=== PATIENT | female | born 1950 | race Caucasian/White ===

== ENCOUNTER 2019-01-11 22:26 | Emergency (ER) | payer MEDICARE, OTHER ==
--- NOTE | 2019-01-11 22:50 | ERPHSYRPT ---
- History of Present Illness Time Seen by Provider: 01/11/19 22:42 Source: patient, family Exam Limitations: no limitations Physician History: ppatient was walking the dog and dog when I pull in her left arm and patient have fell. Patient complains of pain in the left shoulder and left scapular pain yet. No head injury. No LOC. No nausea vomiting. Occurred: just prior to arrival Method of Injury: fell Quality: constant Severity of Pain-Max: moderate Severity of Pain-Current: moderate Extremities Pain Location: shoulder: left Modifying Factors: Improves With: movement Associated Symptoms: back pain, No chills, No chest discomfort, No chest pain, No dyspnea, No fever, No jaw pain, No nausea, No neck pain, No sweating, No short of breath, No vomiting Allergies/Adverse Reactions: Penicillins Allergy (Verified 01/11/19 22:56) Sulfa (Sulfonamide Antibiotics) Allergy (Verified 01/11/19 22:56) Home Medications: Atorvastatin Calcium 40 mg PO 01/11/19 [History] Escitalopram Oxalate 10 mg PO DAILY PRN 01/11/19 [History] Metformin HCl 1,000 mg PO BID 01/11/19 [History] - Review of Systems Constitutional: No Fever, No Chills Eyes: No Symptoms Ears, Nose, & Throat: No Symptoms Respiratory: No Cough, No Dyspnea Cardiac: No Chest Pain, No Edema, No Syncope Abdominal/Gastrointestinal: No Abdominal Pain, No Nausea, No Vomiting, No Diarrhea Genitourinary Symptoms: No Dysuria Musculoskeletal: Other (lleft shoulder and left hip area pain, painful range of motion,), No Back Pain, No Neck Pain Skin: No Rash Neurological: No Dizziness, No Focal Weakness, No Gait Changes, No Headache, No Sensory Changes Psychological: No Symptoms Endocrine: No Symptoms All Other Systems: Reviewed and Negative - Past Medical History Cardiac History: Hypertension Endocrine Medical History: Diabetes Type II - Past Surgical History Neuro Surgical History: No Pertinent History - Nursing Vital Signs Nursing Vital Signs: Initial Vital Signs Temperature 98.7 F 01/11/19 22:45 Pulse Rate 95 H 01/11/19 22:45 Respiratory Rate 16 01/11/19 22:45 Blood Pressure 155/74 01/11/19 22:45 O2 Sat by Pulse Oximetry 95 01/11/19 22:45 Pain Scale Pain Intensity 8 - Physical Exam General Appearance: alert Eyes, Ears, Nose, Throat Exam: moist mucous membranes Neck Exam: non-tender, supple Cardiovascular/Respiratory Exam: chest non-tender, normal breath sounds, regular rate/rhythm, no respiratory distress Abdominal Exam: non-tender, No guarding Back Exam: normal inspection, No vertebral tenderness Shoulder Exam: normal inspection, limited ROM (lleft shoulder and left hip area pain, painful range of motion,normal distal neurovascular function. No deformity.) Elbow/Forearm Exam: normal inspection, non-tender Wrist Exam: normal inspection, non-tender Hand Exam: normal inspection, non-tender Neuro/Tendon Exam: normal sensation, normal motor functions, normal tendon functions, no evidence tendon injury Mental Status Exam: alert, oriented x 3, cooperative Skin Exam: normal color, warm, dry - Course Nursing assessment & vital signs reviewed: Yes - Radiology Exams Left Shoulder X-ray Interpretation: Reviewed by me, Other (fracture upper and the left humerus ) Ordered Tests: Active Orders 24 hr Category Date Time Status Sling Application STAT Care 01/11/19 23:25 Ordered SHOULDER Stat Exams 01/11/19 23:21 Taken Medication Summary Discontinued Medications Generic Name Dose Route Start Last Admin Trade Name Freq PRN Reason Stop Dose Admin Ketorolac Tromethamine 30 mg 01/11/19 22:51 01/11/19 23:08 Toradol 30 Mg Injection IM 01/11/19 22:52 30 mg STAT ONE Administration Ketorolac Tromethamine Confirm 01/11/19 23:06 Toradol 30 Mg Injection Administered 01/11/19 23:07 Dose 30 mg .ROUTE .STK-MED ONE - Progress Progress: improved Counseled pt/family regarding: diagnosis, need for follow-up (advised patient to see ortho in the morning), rad results - Departure Departure Disposition: Home Clinical Impression: Fracture of humerus, left, closed Qualifiers: Encounter type: initial encounter Humerus Location: proximal Fracture morphology: other fracture Fracture alignment: nondisplaced Qualified Code(s): S42.295A - Other nondisplaced fracture of upper end of left humerus, initial encounter for closed fracture Condition: Stable Critical Care Time: No Referrals: JOANNE WAYNE [Primary Care Provider] - Prescriptions: Hydrocodone/APAP 5-325 Tab^^^ [[place] 5-325 Tablet^^^] 1 tab PO Q8H PRN PRN #2 tablet MDD 2 PRN Reason: Pain
[2019-01-11] MEDS ORDERED: TORAdol 30 mg Injection IM ONE (22:51)
[2019-01-11 22:54] VITALS: O2SAT 95
[2019-01-11] MEDS ORDERED: TORAdol 30 mg Injection ONE (23:06)
[2019-01-11] MEDS ORDERED: NORCO 5/325 MG ONE (23:34)
[2019-01-11] MEDS ORDERED: NORCO 5/325 MG PO ONE (23:36)
[2019-01-11 23:48] VITALS: BP 138/91; PULSE 94
--- NOTE | 2019-01-12 09:02 | XRAY ---
Indication: Pain following fall. Comparison: None 3 views of the left shoulder demonstrates comminuted humeral head/neck fracture with mild displaced lateral fracture fragment. No other bony, articular, or soft tissue abnormalities. Comment: No electronic note reporting fracture by the interpreting ER clinician. Telephone report given to Dr. Cosby in the ER at 0900 hrs. on January 12, 2019.
== END 2019-01-11 23:40 | disposition home or self-care (01) ==
LOC: ED 22:26
DX: S42.295A Other nondisplaced fracture of upper end of left humerus, initial encounter for closed fracture (principal); W01.0XXA Fall on same level from slipping, tripping and stumbling without subsequent striking against object, initial encounter; Y93.K1 Activity, walking an animal; Y92.9 Unspecified place or not applicable; I10 Essential (primary) hypertension; E11.9 Type 2 diabetes mellitus without complications
CPT/HCPCS: 73030; 96372; 99284; J1885; A9270-GY

== ENCOUNTER 2019-08-26 07:51 | Observation (INO) | payer MEDICARE, OTHER ==
[2019-08-26] MEDS ORDERED: Zithromax 500 MG/ 250 ML NaCl Premix 500 MG/250 ML IVPB IV STA (08:12)
[2019-08-26] MEDS ORDERED: Pepcid 20 MG VIAL IV ONE ×2 (08:12→08:19)
--- NOTE | 2019-08-26 08:12 | ERPHSYRPT ---
- History of Present Illness Time Seen by Provider: 08/26/19 08:08 Source: patient Exam Limitations: no limitations Physician History: pt awakened with shortness of breath today - has had cough and sore throat a few days but no known fever or exposures. pt reports allergy symptoms earlier in the week and now sinus drainage and also states pcn allergy was not serious and that she has since taken keflex without problems. Timing/Duration: day(s) Cough Quality/Degree: moderate, dry cough Possible Cause: no prior episodes Modifying Factors: Improves With: coughing Associated Symptoms: cough Allergies/Adverse Reactions: Penicillins Allergy (Verified 08/26/19 08:10) Sulfa (Sulfonamide Antibiotics) Allergy (Verified 08/26/19 08:10) Home Medications: Atorvastatin Calcium 40 mg PO DAILY 01/11/19 [History] Metformin HCl 1,000 mg PO BID 01/11/19 [History] - Review of Systems Constitutional: No Fever, No Chills Eyes: No Symptoms Ears, Nose, & Throat: Throat Pain Respiratory: Cough, Dyspnea Cardiac: No Chest Pain, No Edema, No Syncope Abdominal/Gastrointestinal: No Abdominal Pain, No Nausea, No Vomiting, No Diarrhea Genitourinary Symptoms: No Dysuria Musculoskeletal: No Back Pain, No Neck Pain Skin: No Rash Neurological: No Dizziness, No Focal Weakness, No Sensory Changes Psychological: No Symptoms Endocrine: No Symptoms All Other Systems: Reviewed and Negative - Past Medical History Pertinent Past Medical History: Yes Cardiac History: Hypertension Endocrine Medical History: Diabetes Type II Psycho-Social History: Depression - Past Surgical History Past Surgical History: Yes Neuro Surgical History: No Pertinent History Female Surgical History: Tubal Ligation Other Surgical History: r wrist - Social History Smoking Status: Never smoker Drug Use: none - Nursing Vital Signs Nursing Vital Signs: Initial Vital Signs Temperature 98.0 F 08/26/19 08:11 Pulse Rate 103 H 08/26/19 08:11 Respiratory Rate 18 08/26/19 08:11 Blood Pressure 168/96 08/26/19 08:11 O2 Sat by Pulse Oximetry 96 08/26/19 08:11 Pain Scale Pain Intensity 0 - Physical Exam General Appearance: no apparent distress, alert Eye Exam: PERRL/EOMI, eyes nml inspection Ears, Nose, Throat Exam: normal ENT inspection, TMs normal, pharynx normal, moist mucous membranes Neck Exam: normal inspection, non-tender, supple, full range of motion Respiratory Exam: normal breath sounds, lungs clear, No respiratory distress Cardiovascular Exam: regular rate/rhythm, normal heart sounds Gastrointestinal/Abdomen Exam: soft, No tenderness Pelvic Exam: deferred Rectal Exam: deferred Back Exam: normal inspection, No CVA tenderness, No vertebral tenderness Extremity Exam: normal inspection, normal range of motion Neurologic Exam: alert, oriented x 3, cooperative, normal mood/affect, sensation nml, No motor deficits Skin Exam: normal color, warm, dry, No rash Lymphatic Exam: No adenopathy - Course Nursing assessment & vital signs reviewed: Yes EKG Interpreted by Me: Sinus Tach, Left [place] Deviation, Non-specific ST Changes - Radiology Exams Chest X-ray Interpretation: Reviewed by me, No Pneumothorax, Infiltrates (bilateral increased reticular or infiltrate pattern) Ordered Tests: Active Orders 24 hr Category Date Time Status Primary Care Coordinator STAT Care 08/26/19 08:13 Active EKG-ER Only STAT Care 08/26/19 08:12 Active IV Insertion STAT Care 08/26/19 08:12 Active Isolation, Initiate & Maintain Q4H Care 08/26/19 08:15 Active Pulse Oximetry (ED) STAT Care 08/26/19 08:12 Active CHEST 1 VIEW (PORTABLE) Stat Exams 08/26/19 08:13 Taken CBC W DIFF Stat Lab 08/26/19 08:15 Completed CMP Stat Lab 08/26/19 08:15 Completed D-DIMER QUANTITATIVE Stat Lab 08/26/19 08:12 Completed Lactic Acid Stat Lab 08/26/19 08:40 Completed Lactic Acid Stat Lab 08/26/19 10:45 Received NT PRO BNP Stat Lab 08/26/19 08:15 Completed TROPONIN Q3H Lab 08/26/19 08:15 Completed TROPONIN Q3H Lab 08/26/19 11:15 Ordered TROPONIN Q3H Lab 08/26/19 14:15 Ordered TROPONIN Q3H Lab 08/26/19 17:15 Ordered TROPONIN Q3H Lab 08/26/19 20:15 Ordered Respiratory Therapy Assessment DAILY RT 08/26/19 09:43 Active Medication Summary Generic Name Dose Route Start Last Admin Trade Name Freq PRN Reason Stop Dose Admin Sodium Chloride 1,000 mls @ 100 mls/hr 08/26/19 08:15 08/26/19 08:22 Sodium Chloride 0.9% 1000 Ml IV 09/25/19 08:14 100 mls/hr .Q10H CAROLA Administration Discontinued Medications Generic Name Dose Route Start Last Admin Trade Name Jean Pierreq PRN Reason Stop Dose Admin Albuterol Sulfate 4 puff 08/26/19 08:39 08/26/19 09:18 Ventolin Common Canister IH 08/26/19 08:40 4 puff STAT ONE Administration Aspirin 325 mg 08/26/19 09:42 08/26/19 09:58 Ecotrin 325 Mg PO 08/26/19 09:43 325 mg STAT ONE Administration Famotidine 20 mg 08/26/19 08:12 08/26/19 08:21 Pepcid 20 Mg Vial IV 08/26/19 08:13 20 mg STAT ONE Administration Famotidine Confirm 08/26/19 08:19 Pepcid 20 Mg Vial Administered 08/26/19 08:20 Dose 20 mg IV .STK-MED ONE Azithromycin 500 mg in 250 mls @ 250 mls/hr 08/26/19 08:12 08/26/19 08:23 Zithromax 500 Mg/ 250 Ml Nacl Premix IV 08/26/19 09:11 Not Given STAT STA Azithromycin Confirm 08/26/19 08:19 Zithromax 500 Mg/ 250 Ml Nacl Premix Administered 08/26/19 08:20 Dose 500 mg in 250 mls @ ud IV .STK-MED ONE Ceftriaxone Sodium/Dextrose 1 g in 50 mls @ 100 mls/hr 08/26/19 08:26 08:29 Rocephin 1 Gm-D5w 50 Ml Bag IV 08/26/19 08:55 100 mls/hr STAT STA 100 mls/hr Administration Ceftriaxone Sodium/Dextrose Confirm 08/26/19 08:28 Rocephin 1 Gm-D5w 50 Ml Bag Administered 08/26/19 08:29 Dose 1 g in 50 mls @ ud IV .STK-MED ONE Methylprednisolone Sodium Succinate 125 mg 08/26/19 08:41 08/26/19 08:50 Solu-Medrol 125 Mg IV 08/26/19 08:42 125 mg STAT ONE Administration Methylprednisolone Sodium Succinate Confirm 08/26/19 08:50 Solu-Medrol 125 Mg Administered 08/26/19 08:51 Dose 125 mg .ROUTE .STK-MED ONE Nitroglycerin 0.4 mg 08/26/19 09:44 08/26/19 09:53 Nitrostat 0.4 Mg (Ed) SL 08/26/19 09:45 0.4 mg STAT ONE Administration Nitroglycerin Confirm 08/26/19 09:52 Nitrostat 0.4 Mg (Ed) Administered 08/26/19 09:53 Dose 0.4 mg SL .STK-MED ONE Lab/Rad Data: Laboratory Result Diagrams 08/26/19 08:15 08/26/19 08:15 Laboratory Results 08/26/19 08/26/19 08/26/19 Range/Units 08:40 08:15 08:15 WBC (4.0-10.5) K/mm3 RBC (4.1-5.4) M/mm3 Hgb (12.0-16.0) gm/dl Hct (35-47) % MCV (78-100) fl MCH (26-32) pg MCHC (32-36) g/dl RDW (11.5-14.0) % Plt Count (150-450) K/mm3 MPV (7.5-11.0) fl Gran % (36.0-66.0) % Eos # (Auto) (0-0.5) Absolute Lymphs (auto) (1.0-4.6) Absolute Monos (auto) (0.0-1.3) Lymphocytes % (24.0-44.0) % Monocytes % (0.0-12.0) % Eosinophils % (0.00-5.0) % Basophils % (0.0-0.4) % Absolute Granulocytes (1.4-6.9) Basophils # (0-0.4) D-Dimer (215-500) ng/mL Sodium (137-145) mmol/L Potassium (3.5-5.1) mmol/L Chloride (98-107) mmol/L Carbon Dioxide (22-30) mmol/L Anion Gap (5-15) MEQ/L BUN (7-17) mg/dL Creatinine (0.52-1.04) mg/dL Estimated GFR ML/MIN Glucose (74-106) mg/dL Lactic Acid 2.1 H (0.4-2.0) Calcium (8.4-10.2) mg/dL Total Bilirubin (0.2-1.3) mg/dL AST (14-36) U/L ALT (0-35) U/L Alkaline Phosphatase (38-126) U/L Troponin I (0.000-0.034) ng/mL NT-Pro-B Natriuret Pep (0-900) pg/mL Serum Total Protein (6.3-8.2) g/dL Albumin (3.5-5.0) g/dL Influenza Type A Ag NEGATIVE (NEGATIVE) Influenza Type B Ag NEGATIVE (NEGATIVE) RSV (PCR) NEGATIVE (Negative) Group A Strep Antibody NOT DETECTED (NEGATIVE) 08/26/19 08/26/19 08/26/19 Range/Units 08:15 08:15 08:15 WBC 7.1 (4.0-10.5) K/mm3 RBC 4.28 (4.1-5.4) M/mm3 Hgb 13.3 (12.0-16.0) gm/dl Hct 39.9 (35-47) % MCV 93.2 (78-100) fl MCH 31.1 (26-32) pg MCHC 33.3 (32-36) g/dl RDW 12.6 (11.5-14.0) % Plt Count 134 L (150-450) K/mm3 MPV 11.7 H (7.5-11.0) fl Gran % 71.1 H (36.0-66.0) % Eos # (Auto) 0.17 (0-0.5) Absolute Lymphs (auto) 1.44 (1.0-4.6) Absolute Monos (auto) 0.41 (0.0-1.3) Lymphocytes % 20.4 L (24.0-44.0) % Monocytes % 5.8 (0.0-12.0) % Eosinophils % 2.4 (0.00-5.0) % Basophils % 0.3 (0.0-0.4) % Absolute Granulocytes 5.03 (1.4-6.9) Basophils # 0.02 (0-0.4) D-Dimer (215-500) ng/mL Sodium 139 (137-145) mmol/L Potassium 4.0 (3.5-5.1) mmol/L Chloride 103 (98-107) mmol/L Carbon Dioxide 24 (22-30) mmol/L Anion Gap 15.7 H (5-15) MEQ/L BUN 21 H (7-17) mg/dL Creatinine 0.67 (0.52-1.04) mg/dL Estimated GFR > 60.0 ML/MIN Glucose 261 H (74-106) mg/dL Lactic Acid (0.4-2.0) Calcium 9.8 (8.4-10.2) mg/dL Total Bilirubin 0.50 (0.2-1.3) mg/dL AST 62 H (14-36) U/L ALT 71 H (0-35) U/L Alkaline Phosphatase 189 H (38-126) U/L Troponin I < 0.012 (0.000-0.034) ng/mL NT-Pro-B Natriuret Pep 45.6 (0-900) pg/mL Serum Total Protein 7.5 (6.3-8.2) g/dL Albumin 4.4 (3.5-5.0) g/dL Influenza Type A Ag (NEGATIVE) Influenza Type B Ag (NEGATIVE) RSV (PCR) (Negative) Group A Strep Antibody (NEGATIVE) 08/26/19 Range/Units 08:12 WBC (4.0-10.5) K/mm3 RBC (4.1-5.4) M/mm3 Hgb (12.0-16.0) gm/dl Hct (35-47) % MCV (78-100) fl MCH (26-32) pg MCHC (32-36) g/dl RDW (11.5-14.0) % Plt Count (150-450) K/mm3 MPV (7.5-11.0) fl Gran % (36.0-66.0) % Eos # (Auto) (0-0.5) Absolute Lymphs (auto) (1.0-4.6) Absolute Monos (auto) (0.0-1.3) Lymphocytes % (24.0-44.0) % Monocytes % (0.0-12.0) % Eosinophils % (0.00-5.0) % Basophils % (0.0-0.4) % Absolute Granulocytes (1.4-6.9) Basophils # (0-0.4) D-Dimer 461 (215-500) ng/mL Sodium (137-145) mmol/L Potassium (3.5-5.1) mmol/L Chloride (98-107) mmol/L Carbon Dioxide (22-30) mmol/L Anion Gap (5-15) MEQ/L BUN (7-17) mg/dL Creatinine (0.52-1.04) mg/dL Estimated GFR ML/MIN Glucose (74-106) mg/dL Lactic Acid (0.4-2.0) Calcium (8.4-10.2) mg/dL Total Bilirubin (0.2-1.3) mg/dL AST (14-36) U/L ALT (0-35) U/L Alkaline Phosphatase (38-126) U/L Troponin I (0.000-0.034) ng/mL NT-Pro-B Natriuret Pep (0-900) pg/mL Serum Total Protein (6.3-8.2) g/dL Albumin (3.5-5.0) g/dL Influenza Type A Ag (NEGATIVE) Influenza Type B Ag (NEGATIVE) RSV (PCR) (Negative) Group A Strep Antibody (NEGATIVE) - Progress Progress: improved, re-examined Air Movement: good Progress Note: 08/26/19 09:43 pt described her chest symptoms after steroids and inhaler as improvement of the shortness of breath but still some residual and also now heaviness of her chest. 08/26/19 10:07 heaviness/shortness of breath was partially relieved by NTG 08/26/19 10:48 findings were discussed with Dr. Nguyen and pt and all agree best for pt to come in on Obs to rule out cardiac and COvid. Blood Culture(s) Obtained: No Antibiotics given: Yes Discussed with : Other (Dr. Nguyen) Will see patient in: hospital (observation) Counseled pt/family regarding: lab results, diagnosis, need for follow-up, rad results - Departure Departure Disposition: Observation Clinical Impression: SOB (shortness of breath), chest heaviness/chest pain, PUI for COvid with minimal infiltrates Condition: Good Critical Care Time: No Referrals: JOANNE WAYNE [Primary Care Provider] -
[2019-08-26] MEDS ORDERED: Sodium Chloride 0.9% 1000 ML 1,000 ML IV SCH (08:15)
[2019-08-26] MEDS ORDERED: Zithromax 500 MG/ 250 ML NaCl Premix 0 MG/0 ML IVPB IV ONE (08:19)
[2019-08-26] MEDS ORDERED: ROCEPHIN 1 Gm-D5w 50 ml Bag** 1 G/50 ML IVPB IV STA (08:26)
[2019-08-26] MEDS ORDERED: ROCEPHIN 1 Gm-D5w 50 ml Bag** 1 G/50 ML IVPB IV ONE (08:28)
[2019-08-26 08:37] LABS: Absolute Neutrophil Ct (ANC) 5.03 (1.4-6.9); BASOPHIL % 0.3 % (0.0-0.4); Basophil (Absolute #) 0.02 (0-0.4); Eosinophil % 2.4 % (0.00-5.0); Eosinophil (Absolute #) 0.17 (0-0.5); Hematocrit 39.9 % (35-47); Hemoglobin 13.3 gm/dl (12.0-16.0); Lymphocyte (Absolute #) 1.44 (1.0-4.6); Lymphocytes % 20.4 % (24.0-44.0); Mean Cell Volume 93.2 fl (78-100); Mean Corpuscular Hemoglobin 31.1 pg (26-32); Mean Corpuscular Hgb Concent. 33.3 g/dl (32-36); Mean Platelet Volume 11.7 fl (7.5-11.0); Monocyte (Absolute #) 0.41 (0.0-1.3); Monocytes % 5.8 % (0.0-12.0); Neutrophil % 71.1 % (36.0-66.0); Platelet Count 134 K/mm3 (150-450); Red Blood Count 4.28 M/mm3 (4.1-5.4); Red Cell Distribution Width 12.6 % (11.5-14.0); White Blood Count 7.1 K/mm3 (4.0-10.5)
[2019-08-26] MEDS ORDERED: VENTOLIN COMMON CANISTER IH ONE (08:39)
[2019-08-26] MEDS ORDERED: solu-MEDROL 125 MG IV ONE (08:41)
[2019-08-26 08:50] LABS: ALBUMIN 4.4 g/dL (3.5-5.0); ALKALINE PHOSPHATASE 189 U/L (38-126); ANION GAP 15.7 MEQ/L (5-15); BLOOD UREA NITROGEN 21 mg/dL (7-17); CHLORIDE 103 mmol/L (98-107); Calcium 9.8 mg/dL (8.4-10.2); Carbon Dioxide 24 mmol/L (22-30); Creatinine 1 0.67 mg/dL (0.52-1.04); Glucose 261 mg/dL (74-106); NT PRO BNP 45.6 pg/mL (0-900); SGOT/AST 62 U/L (14-36); SGPT/ALT 71 U/L (0-35); SODIUM 139 mmol/L (137-145); Total Protein 7.5 g/dL (6.3-8.2)
[2019-08-26] MEDS ORDERED: solu-MEDROL 125 MG ONE (08:50)
[2019-08-26 09:02] LABS: INFLUENZA A NEGATIVE (NEGATIVE); INFLUENZA B NEGATIVE (NEGATIVE); RESPIRATORY SYNCTIAL VIRUS NEGATIVE (Negative)
[2019-08-26] MEDS ORDERED: Ecotrin 325 MG PO ONE (09:42)
[2019-08-26] MEDS ORDERED: Nitrostat 0.4 MG (ED) SL ONE ×2 (09:44→09:52)
[2019-08-26] MEDS ORDERED: MAALOX ES 30 ML UNIT DOSE PO PRN (11:48)
[2019-08-26] MEDS ORDERED: TYLENOL 325 MG PO PRN ×2 (11:48)
[2019-08-26] MEDS ORDERED: MORPHINE SULFATE 4 MG INJ IV PRN (11:48)
[2019-08-26] MEDS ORDERED: Combivent Inhaler COMMON CANISTER IH SCH (11:48)
[2019-08-26] MEDS ORDERED: Colace 100 MG PO PRN (11:48)
[2019-08-26] MEDS ORDERED: MILK OF MAGNESIA 30 ML PO PRN ×2 (11:48)
[2019-08-26] MEDS ORDERED: Zofran 4 MG/2 ML VIAL IV PRN ×2 (11:48)
[2019-08-26] MEDS ORDERED: Senokot-S Tablet PO PRN (11:48)
[2019-08-26] MEDS ORDERED: PROTONIX 40 MG IV IV SCH (12:00)
[2019-08-26] MEDS: ENOXAPARIN SODIUM SQ SCH (12:31)
[2019-08-26] MEDS: HUMULIN R SQ PRN ×3 (12:33→21:08)
[2019-08-26] MEDS ORDERED: Ativan 1 MG PO PRN (13:52)
[2019-08-26] MEDS ORDERED: Nitrostat 0.4 MG Tablet SL PRN (13:52)
[2019-08-26] MEDS ORDERED: TYLENOL EXTRA STRENGTH 500 MG PO PRN (13:52)
--- NOTE | 2019-08-26 19:35 | XRAY ---
Indication: Cough and short of breath. Comparison: None Portable chest clear. Heart and mediastinal structures within normal limits. Bony thorax intact with mild degenerative changes. Impression: Nonacute chest.
[2019-08-26] MEDS: Pepcid 20 MG VIAL IV SCH (21:10)
[2019-08-26] MEDS: Glucophage 500 MG PO SCH (21:11)
[2019-08-27 05:57] LABS: Absolute Neutrophil Ct (ANC) 7.55 (1.4-6.9); BASOPHIL % 0.2 % (0.0-0.4); Basophil (Absolute #) 0.02 (0-0.4); Eosinophil % 0.2 % (0.00-5.0); Eosinophil (Absolute #) 0.02 (0-0.5); Hematocrit 36.8 % (35-47); Hemoglobin 12.5 gm/dl (12.0-16.0); Lymphocyte (Absolute #) 1.55 (1.0-4.6); Lymphocytes % 15.8 % (24.0-44.0); Mean Corpuscular Hemoglobin 31.3 pg (26-32); Mean Platelet Volume 11.6 fl (7.5-11.0); Monocyte (Absolute #) 0.66 (0.0-1.3); Monocytes % 6.7 % (0.0-12.0); Neutrophil % 77.1 % (36.0-66.0); Platelet Count 141 K/mm3 (150-450); Red Cell Distribution Width 12.5 % (11.5-14.0); White Blood Count 9.8 K/mm3 (4.0-10.5)
[2019-08-27 06:13] LABS: ALKALINE PHOSPHATASE 130 U/L (38-126); ANION GAP 12.8 MEQ/L (5-15); BLOOD UREA NITROGEN 18 mg/dL (7-17); CHLORIDE 106 mmol/L (98-107); Calcium 9.6 mg/dL (8.4-10.2); Carbon Dioxide 24 mmol/L (22-30); Cholesterol 162 mg/dL (50-200); Glucose 196 mg/dL (74-106); HDL CHOLESTEROL 63 mg/dL (40-60); LDL, DIRECT 78 mg/dL (30-100); Potassium 3.8 mmol/L (3.5-5.1); Risk Ratio 2.6; SGOT/AST 43 U/L (14-36); SGPT/ALT 62 U/L (0-35); SODIUM 139 mmol/L (137-145); TRIGLYCERIDE 168 mg/dL (30-150); Total Protein 6.8 g/dL (6.3-8.2)
[2019-08-27] MEDS: Glucophage 500 MG PO SCH (07:27)
[2019-08-27 07:28] VITALS: BP 147/74
[2019-08-27] MEDS ORDERED: MEDICATION INTERVENTION PO SCH (08:15)
[2019-08-27] MEDS: ENOXAPARIN SODIUM SQ SCH (09:24)
[2019-08-27] MEDS: Pepcid 20 MG VIAL IV SCH (09:25)
[2019-08-27] MEDS ORDERED: MAGNESIUM OXIDE 200 MG PO SCH (10:00)
[2019-08-27] MEDS ORDERED: Protonix 40MG Tablet PO SCH (10:00)
[2019-08-27] MEDS ORDERED: ROCEPHIN 1 Gm-D5w 50 ml Bag** 1 G/50 ML IVPB IV SCH (10:00)
[2019-08-27] MEDS ORDERED: Colace 100 MG PO SCH (10:00)
[2019-08-27] MEDS ORDERED: MAG-OX 400 PO SCH (10:00)
[2019-08-27] MEDS ORDERED: BENAZEPRIL PO SCH (10:00)
[2019-08-27] MEDS ORDERED: [UNRECOGNIZED DRUG - OTHER] PO SCH (10:00)
[2019-08-27] MEDS ORDERED: hydroDIURIL 25 MG PO SCH (10:00)
[2019-08-27] MEDS ORDERED: Lotensin 10 MG PO SCH (10:00)
[2019-08-27] MEDS ORDERED: Ecotrin 325 MG PO SCH (10:00)
[2019-08-27] MEDS ORDERED: CLARITIN 10 MG PO SCH (10:00)
[2019-08-27] MEDS ORDERED: NON-FORMULARY ITEM (Omeprazole [Omeprazole] 20 MG) PO SCH (10:00)
[2019-08-27] MEDS ORDERED: ZOCOR 20MG PO SCH (10:00)
[2019-08-27] MEDS ORDERED: HYDROCHLOROTHIAZIDE PO SCH (10:00)
[2019-08-27 10:05] VITALS: PULSE 102; O2SAT 92
--- NOTE | 2019-09-03 12:12 | SSS ---
ADMISSION DIAGNOSES: 1) Chest pain. 2) Cough. 3) Positive D-dimer. DISCHARGE DIAGNOSES: 1) CHEST PAIN. 2) ANXIETY. 3) COUGH. HISTORY: The patient noticed she was having some chest pain. She usually does not have any chest pain. She said she had been quite anxious. She woke up with this feeling. She also woke up coughing. She had been coughing for about two days before she came to the emergency room for chest pain. The chest pain had pretty well gone away by the time she got to the emergency room. She is a nonsmoker. No history of diabetes. No history of coronary artery disease. No hypertension. SOCIAL HISTORY: . Still works I believe at the [employer]. PHYSICAL EXAMINATION: The patient is a healthy-looking 69 year-old white female in no distress. VITAL SIGNS: Blood pressure 120/72, pulse 70, respirations 12. HEENT: Pupils equal and reactive to light. NECK: Supple without adenopathy. CHEST: Clear. CVS: No murmurs or gallops. EXTREMITIES: Good pulses. No edema. LAB DATA AND TESTS: The patient's hemoglobin A1C was 9.12 markedly elevated. Her troponins were all negative. Glucose was 261. Creatinine was 0.6. She had no chest pain while she was being followed up. Her EKG's looked normal. She had D-dimer of only 461 which is normal. Influenza normal. Chest x-ray showed nonacute chest. IMPRESSION: Chest pain, anxiety, bronchitis, discharge planning. The patient's symptoms were relieved with Ativan. I told her to follow up with family practitioner if she felt she would need anxiety medicine. She thought she was fine. We are going to call for a COVID virus test which I told her I felt she would be negative but she should stay in her house and not have visitors until it is called in the next day or so.
== END 2019-08-27 10:55 | disposition home or self-care (01) ==
LOC: ED 07:51 → MED SURG 11:20
PROVIDERS: ADMIT Family Medicine; ATTEND Family Medicine
DX: R07.9 Chest pain, unspecified (principal); R06.02 Shortness of breath; R05 Cough; E11.9 Type 2 diabetes mellitus without complications; R79.1 Abnormal coagulation profile; I10 Essential (primary) hypertension; F41.9 Anxiety disorder, unspecified; Z79.899 Other long term (current) drug therapy
CPT/HCPCS: 36000; 36415; 71045; 80053; 80061; 82962; 83036; 83605; 83721; 83880; 84484; 85025; 85379; 87631; 87651; 93005; 93041; 93268; 94640; 94760; 94762; 96365; 96374; 96375; 99285; G0378; U0003; J0456; J0696; J1650; J1815; J2930; A9270-GY

== ENCOUNTER 2021-03-12 06:36 | Day surgery (SDC) | payer MEDICARE, OTHER ==
--- NOTE | 2021-03-09 13:18 | HP ---
DATE OF SURGERY: 03/12/2021 HISTORY OF PRESENT ILLNESS: The patient is a 70 year-old female who presents for colonoscopy. Last colonoscopy was about ten years ago and it was normal. The patient does state her mom had colon cancer. She denies any GI signs or symptoms at this time. PAST MEDICAL HISTORY: Diabetes, hypertension, hyperlipidemia, depression. PAST SURGICAL HISTORY: Cataract surgery. Bladder repair surgery. Right wrist surgery. ALLERGIES: SULFA. PENICILLIN. MEDICATIONS: Fenofibrate, benazepril, Lexapro, Metformin. FAMILY HISTORY: Colon cancer. Diabetes. Lung cancer. SOCIAL HISTORY: Negative. REVIEW OF SYSTEMS: CONSTITUTIONAL: Denies fever or chills. CHEST: Denies shortness of breath. CVS: Denies chest pain. ABDOMEN: Denies abdominal pain, nausea, vomiting, diarrhea, constipation or rectal bleeding. PHYSICAL EXAMINATION: GENERAL: No acute distress. CHEST: Nonlabored. No shortness of breath. CVS: Regular rate and rhythm. ABDOMEN: Soft, nontender. IMPRESSION: Family history of colon cancer and screening. PLAN: Colonoscopy with Dr. Delroy Miller. As dictated by Essie Garces NP.
[2021-03-12 07:24] VITALS: O2SAT 95
[2021-03-12] MEDS ORDERED: Lactated Ringers 1,000 ML IV SCH (07:30)
[2021-03-12] MEDS ORDERED: DIPRIVAN 200 MG/20 ML IV ONE ×2 (09:18→09:33)
[2021-03-12 10:33] VITALS: BP 179/99; PULSE 92
--- NOTE | 2021-03-12 13:08 | OP ---
SURGERY DATE/TIME: 03/12/2021 0918 PREOPERATIVE DIAGNOSIS: Screening. She had a scope about 10 or 11 years ago. She does have a mom with colon cancer. POSTOPERATIVE DIAGNOSES: 1) Moderate sigmoid diverticulosis. No polyp. 2) Prep score good not excellent. 3) Anticipated follow up five years. PROCEDURE: Colonoscopy complete to cecum. SURGEON: Delroy Miller M.D. ANESTHESIA: MAC. COMPLICATIONS: None. CONDITION: Stable. INDICATION: The patient is 10 to 11 years out from screening. She did have a mother that had colon cancer. DESCRIPTION OF PROCEDURE: She was taken to endoscopy. Left lateral decubitus position. Anal digital examination satisfactory. Scope advanced to the cecum. Base of the cecum, ileocecal valve was normal. Ascending, hepatic, transverse, splenic, some scattered diverticula, most diverticula concentrated in the sigmoid. Rectum satisfactory. Anus satisfactory. IMPRESSION: Normal examination today other than diverticulosis. For her family history, I would leave the follow at five years. Her prep score was good not excellent today.
== END 2021-03-12 10:45 | disposition home or self-care (01) ==
LOC: SDC 06:36
PROVIDERS: ATTEND Surgery
DX: Z12.11 Encounter for screening for malignant neoplasm of colon (principal); K57.30 Diverticulosis of large intestine without perforation or abscess without bleeding; Z80.0 Family history of malignant neoplasm of digestive organs; Z80.1 Family history of malignant neoplasm of trachea, bronchus and lung; E11.9 Type 2 diabetes mellitus without complications; Z79.899 Other long term (current) drug therapy
CPT/HCPCS: 82947; G0105; J2704

== ENCOUNTER 2024-07-11 00:55 | Observation (INO) | payer MEDICARE, OTHER ==
--- NOTE | 2024-07-11 02:17 | ERPHSYRPT ---
- History of Present Illness Time Seen by Provider: 07/11/24 02:13 Source: patient Exam Limitations: no limitations Patient Subjective Stated Complaint: "I was walking my dogs outside and one of them started to pull and I tripped and fell on the concrete landing on my hip". Triage Nursing Assessment: Pt presents to ER with complaints of right hip pain that started after suffering a fall at approx 0045. Pt denies any pain while laying in bed during ER triage but states pain occurs when trying to move or ambulate on right leg. Pt has tenderness but no obvious deformity to right leg. Strong pedal flexion and extension. Denies any further injuries or LOC. Skin is pink, warm, and dry. Respirations are unlabored. Pt is alert and oriented x 3. A mbulates with shuffle step gait and x 1 staff assist. Physician History: Patient is a 74-year-old female presents to our emergency department for evaluation of pain to her right hip. Patient states she was walking her dogs. One of her dogs began to pull her causing her to trip and landed onto her right hip. Injury occurred at approximately 1 AM. Pain worse with movement and weightbearing. Pain improves with rest and laying supine. No other injuries reported. No BHT or LOC. No neck pain. Cervical spine cleared clinically. The fall was mechanical and not associated with any neuro cardiovascular symptomology. No chest pain or shortness of breath. No nausea vomiting or diaphoresis. No numbness tingling or weakness. Patient otherwise feels well. She voices no other complaints or concerns at this time. Portions of this note were created with voice recognition technology. There may be grammatical, spelling, punctuation or sound alike errors Timing/Duration: today Severity: moderate Modifying Factors: Improves With: movement (Movement and weightbearing) Associated Symptoms: denies symptoms Allergies/Adverse Reactions: Penicillins Allergy (Verified 07/11/24 01:11) Sulfa (Sulfonamide Antibiotics) Allergy (Verified 07/11/24 01:11) Home Medications: Metformin HCl 500 mg PO BID 01/11/19 [History] Benazepril/Hydrochlorothiazide [Lotensin Hct 20-25 mg Tablet] 1 tab PO DAILY 08/26/19 [History] Magnesium Oxide [Mag-Oxide Magnesium] 250 mg PO DAILY 08/26/19 [History] Escitalopram Oxalate [Lexapro] 10 mg PO DAILY 03/10/21 [History] Potassium Gluconate 500 mg PO DAILY 03/10/21 [History] Acetaminophen 325 mg [Tylenol 325 mg] 500 mg PO Q6HPRN PRN 03/12/21 [History] Nitroglycerin 0.4 mg Tablet [Nitrostat 0.4 MG Tablet] 0.4 mg SL Q12H PRN PRN 07/11/24 [History] Semaglutide [Ozempic] 0.25 mg SQ WEEKLY 07/11/24 [History] Hx Tetanus, Diphtheria Vaccination/Date Given: No Hx Influenza Vaccination/Date Given: Yes Hx Pneumococcal Vaccination/Date Given: No Immunizations Up to Date: No Travel Risk - International Travel Have you traveled outside of the country in past 3 weeks: No - Emerging Infectious Disease Are you exhibiting symptoms associated with any current EIDs: No - Review of Systems Constitutional: No Symptoms, No Fever, No Chills Eyes: No Symptoms Ears, Nose, & Throat: No Symptoms Respiratory: No Symptoms, No Cough, No Dyspnea Cardiac: No Symptoms, No Chest Pain, No Edema, No Syncope Abdominal/Gastrointestinal: No Symptoms, No Abdominal Pain, No Nausea, No Vomiting, No Diarrhea Genitourinary Symptoms: No Symptoms, No Dysuria Musculoskeletal: No Symptoms, No Back Pain, No Neck Pain Skin: No Symptoms, No Rash Neurological: No Symptoms, No Dizziness, No Focal Weakness, No Sensory Changes Psychological: No Symptoms Endocrine: No Symptoms Hematologic/Lymphatic: No Symptoms Immunological/Allergic: No Symptoms All Other Systems: Reviewed and Negative - Past Medical History Pertinent Past Medical History: Yes Neurological History: No Pertinent History ENT History: Cataracts Cardiac History: High Cholesterol, Hypertension Respiratory History: No Pertinent History Endocrine Medical History: Diabetes Type II Musculoskeletal History: No Pertinent History GI Medical History: No Pertinent History History: No Pertinent History Psycho-Social History: Depression Female Reproductive Disorders: No Pertinent History - Past Surgical History Past Surgical History: Yes Neuro Surgical History: No Pertinent History Cardiac: No Pertinent History Respiratory: No Pertinent History Gastrointestinal: No Pertinent History Genitourinary: No Pertinent History Musculoskeletal: No Pertinent History Female Surgical History: Tubal Ligation Other Surgical History: r wrist - Social History Smoking Status: Never smoker Exposure to second hand smoke: No Drug Use: none - Social Determinants of Health Will the patient participate in the screening: Yes Do you worry about a steady place to live?: No Do you have any problems with any of the following?: No known problems In the past 12 months,have you had to go without utilities?: No Transportation Issues: No Has anyone in your support network made you feel unsafe?: No Have you or anyone in your house had to go w/o enough food: No - Nursing Vital Signs Nursing Vital Signs: Initial Vital Signs Pulse Rate 85 07/11/24 01:10 Respiratory Rate 18 07/11/24 01:10 Blood Pressure 158/56 07/11/24 01:10 O2 Sat by Pulse Oximetry 95 07/11/24 01:10 Pain Scale Pain Intensity 4 - Physical Exam General Appearance: no apparent distress, alert Eye Exam: PERRL/EOMI, eyes nml inspection Ears, Nose, Throat Exam: normal ENT inspection, TMs normal, pharynx normal, moist mucous membranes Neck Exam: normal inspection, non-tender, supple, full range of motion Respiratory Exam: normal breath sounds, lungs clear, airway intact, No respiratory distress Cardiovascular Exam: regular rate/rhythm, normal heart sounds, normal peripheral pulses Gastrointestinal/Abdomen Exam: soft, normal bowel sounds, No tenderness, No mass Back Exam: normal inspection, normal range of motion, No CVA tenderness, No vertebral tenderness Extremity Exam: normal inspection, normal range of motion, pelvis stable, other (Tenderness to palpation right lateral hip. Overlying soft tissue intact. No open or draining lesions. The involved extremity is neurovascular tact distally compartments are soft cap refill less than 2 seconds. Palpation reproduces patient's pain.) Neurologic Exam: alert, oriented x 3, cooperative, normal mood/affect, sensation nml, No motor deficits Skin Exam: normal color, warm, dry, No rash Lymphatic Exam: No adenopathy SpO2 Interpretation: normal SpO2: 96 O2 Delivery: Room Air - Course Nursing assessment & vital signs reviewed: Yes Ordered Tests: Active Orders 24 hr Category Date Time Status Bedrest ROUTINE Activity 07/11/24 03:54 Active Call Admit Doctor for Orders ON ADMISSION Care 07/11/24 03:54 Active Call Admit Doctor for Orders ON ADMISSION Care 07/11/24 03:54 Active Doctor Of Optometry ROUTINE Care 07/11/24 03:54 Active Code Status Order ROUTINE Care 07/11/24 03:54 Active Code Status Order ROUTINE Care 07/11/24 03:54 Active IV Insertion STAT Care 07/11/24 03:[address] in Observation ROUTINE Care 07/11/24 03:54 Active Telemetry q6h Care 07/11/24 03:54 Active Consult Ortho ROUTINE Cons 07/11/24 03:54 Active FEMUR Stat Exams 07/11/24 03:16 Taken LOWER EXTREMITY WO CONTRAST [CT] Stat Exams 07/11/24 01:33 Completed CBC W DIFF Stat Lab 07/11/24 03:28 Completed CMP Stat Lab 07/11/24 03:28 Completed Transfer Order Routine Transfer 07/11/24 Completed Medication Summary Discontinued Medications Generic Name Dose Route Start Last Admin Trade Name Osmani PRN Reason Stop Dose Admin Morphine Sulfate 4 mg 07/11/24 03:08 07/11/24 03:26 Morphine Sulfate 4 Mg/Ml Injection IV 07/11/24 03:09 4 mg STAT ONE Administration Morphine Sulfate Confirm 07/11/24 03:13 Morphine Sulfate 4 Mg/Ml Injection Administered 07/11/24 03:14 Dose 4 mg .ROUTE .STK-MED ONE Ondansetron HCl 4 mg 07/11/24 03:08 07/11/24 03:26 Ondansetron Hcl 4 Mg/2 Ml Vial IV 07/11/24 03:09 4 mg STAT ONE Administration Ondansetron HCl Confirm 07/11/24 03:13 Ondansetron Hcl 4 Mg/2 Ml Vial Administered 07/11/24 03:14 Dose 4 mg .ROUTE .STK-MED ONE Lab/Rad Data: Laboratory Result Diagrams 07/11/24 03:28 07/11/24 03:28 Laboratory Results 07/11/24 07/11/24 Range/Units 03:28 03:28 WBC 6.8 (3.98-10.04) x10^3/uL RBC 3.61 L (3.93-5.22) x10^6/uL Hgb 7.7 L (11.2-15.7) g/dL Hct 26.2 L (34.1-44.9) % MCV 72.6 L (79.4-94.8) fL MCH 21.3 L (25.6-32.2) pg MCHC 29.4 L (32.2-35.5) g/dL RDW 17.0 H (11.7-14.4) % Plt Count 87 L (182-369) x10^3/uL MPV 10.4 (9.4-12.3) fL Gran % 82.8 H (34.0-71.1) % Immature Gran % (Auto) 0.6 H (0.001-0.429) % Nucleat RBC Rel Count 0.0 (0.00-0.2) % Eos # (Auto) 0.03 L (0.04-0.36) x10^3/uL Immature Gran # (Auto) 0.04 H (0.001-0.031) x10^3u/L Absolute Lymphs (auto) 0.72 L (1.18-3.74) x10^3/uL Absolute Monos (auto) 0.35 (0.24-0.86) x10^3/uL Absolute Nucleated RBC 0.00 (0.00-0.012) x10^3u/L Lymphocytes % 10.5 L (19.3-51.7) % Monocytes % 5.1 (4.7-12.5) % Eosinophils % 0.4 L (0.7-5.8) % Basophils % 0.6 (0.1-1.2) % Absolute Granulocytes 5.65 (1.56-6.13) x10^3/uL Basophils # 0.04 (0.01-0.08) x10^3/uL Sodium 138 (135-145) mmol/L Potassium 4.1 (3.5-5.1) mmol/L Chloride 105 (98-107) mmol/L Carbon Dioxide 23 (22-30) mmol/L Anion Gap 14.0 (5-15) MEQ/L BUN 18 H (7-17) mg/dL Creatinine 0.60 (0.52-1.04) mg/dL Estimated GFR 94.7 ML/MIN Glucose 169 H (74-106) mg/dL Calcium 9.2 (8.4-10.2) mg/dL Total Bilirubin 0.60 (0.2-1.3) mg/dL AST 51 H (14-36) U/L ALT 39 H (0-35) U/L Alkaline Phosphatase 134 H (38-126) U/L Serum Total Protein 6.6 (6.3-8.2) g/dL Albumin 4.3 (3.5-5.0) g/dL - Progress Progress: improved Progress Note: Case discussed with Dr. Ybarra. Dr. Ybarra does not believe that this will require surgery. However he advised obtaining x-ray in addition to the CT scan. We will admit patient for pain control, physical therapy eval and formal orthopedic evaluation. Plan of care discussed with patient. Patient agrees to admission at [facility] for further evaluation and treatment. I spoke to Dr. Ybarra at approximately 3 AM. Case discussed with hospitalist Dr. Grijalva who accepts admission to observation at 3:05 AM. Portions of this note were created with voice recognition technology. There may be grammatical, spelling, punctuation or sound alike errors Complexity of problem addressed is moderate acute complicated. No critical care time. Complex of data reviewed and analyzed is extensive. Test ordered chest reviewed results analyzed and correlated clinically with history and physical exam. Management discussed with Dr. Ybarra of orthopedic surgery and Dr. Grijalva hospitalist. Risk of complication and or risk of morbidity/mortality of patient management is high. Patient requires hospitalization for further evaluation and treatment. Vital stable. Time spent to admit patient approximately 20 minutes. Plan of care established for shared decision making. No social det erminants of health present to impede follow-up. Portions of this note were created with voice recognition technology. There may be grammatical, spelling, punctuation or sound alike errors 07/11/24 03:20 Labs resulted. We unexpectedly observed the patient to have a microcytic anemia with a hemoglobin of 7.7. This is about a 2-1/2 g drop from January. Patient already on the floor. We notified the floor. Type and screen ordered. They will call Dr. Grijalva to let him know of this unexpected finding. Additionally patient has a platelet of 87. Previous platelet count was 99. Portions of this note were created with voice recognition technology. There may be grammatical, spelling, punctuation or sound alike errors 07/11/24 04:18 07/11/24 04:20 Counseled pt/family regarding: diagnosis, need for follow-up, rad results - Departure Departure Disposition: Home Clinical Impression: Fall, Contusion, hip, Microcytic anemia, Thrombocytopenia, Greater trochanter fracture Condition: Stable Critical Care Time: No
--- NOTE | 2024-07-11 02:35 | XRAY ---
CLINICAL HISTORY: fall COMPARISON: No previous studies are available for comparison. TECHNIQUE: CT scan of the right hip was performed without the administration of intravenous contrast. Axial images were obtained, with coronal and sagittal reformatted images reviewed. One of the following dose reduction techniques was utilized for this exam. Automated exposure control, adjustment of the mA and/or kV according to patient size, and use of iterative reconstruction. FINDINGS: Bones: Acute comminuted mildly displaced fracture of with trochanter of right femur. Diffuse osteopenic changes noted. Joints: Moderate right hip degenerative changes. No evidence of dislocation. Soft Tissues: Soft tissue thickening with small hematoma overlying the fractured site along the lateral aspect of right hip joint. Mild loculated fluid collection along the right ischial tuberosity with few peripheral small calcific foci, representing ischial bursitis. Additional Findings: Partial sacralization of L5 vertebral body on right side. Degenerative changes in visualized lumbar spine. Atherosclerotic vascular calcification. IMPRESSION: 1. Acute comminuted mildly displaced fracture of greater trochanter of right femur. 2. Soft tissue thickening with small hematoma overlying the fractured site along the lateral aspect of right hip joint. 3. Mild loculated fluid collection along the right ischial tuberosity with few peripheral small calcific foci, representing ischial bursitis. [facility] was called at [phone] at 1:27 AM CHEMICAL LIBRARIAN, 07/11/2024 and JERI Bonds was informed regarding the presence of significant medical findings in the report. Electronically Signed by: No Montague MD. (07/11/2024 02:31:12 EDT)
[2024-07-11] MEDS ORDERED: MORPHINE SULFATE 4 MG INJ ONE (03:13)
[2024-07-11] MEDS ORDERED: Zofran 4 MG/2 ML VIAL ONE (03:13)
[2024-07-11] MEDS: Zofran 4 MG/2 ML VIAL IV ONE (03:26)
[2024-07-11] MEDS: MORPHINE SULFATE 4 MG INJ IV ONE (03:26)
[2024-07-11 03:43] LABS: ALBUMIN 4.3 g/dL (3.5-5.0); BILIRUBIN,TOTAL 0.6 mg/dL (0.2-1.3); Calcium 9.2 mg/dL (8.4-10.2); Creatinine 1 0.6 mg/dL (0.52-1.04); EST GLOMERULAR FILTRATION RATE 94.7 ML/MIN; Potassium 4.1 mmol/L (3.5-5.1); Total Protein 6.6 g/dL (6.3-8.2)
[2024-07-11 03:57] LABS: Absolute Neutrophil Ct (ANC) 5.65 x10^3/uL (1.56-6.13); BASOPHIL % 0.6 % (0.1-1.2); Basophil (Absolute #) 0.04 x10^3/uL (0.01-0.08); Eosinophil % 0.4 % (0.7-5.8); Eosinophil (Absolute #) 0.03 x10^3/uL (0.04-0.36); Hematocrit 26.2 % (34.1-44.9); Hemoglobin 7.7 g/dL (11.2-15.7); IMMATURE GRAN # 0.04 x10^3u/L (0.001-0.031); IMMATURE GRAN % 0.6 % (0.001-0.429); Lymphocyte (Absolute #) 0.72 x10^3/uL (1.18-3.74); Lymphocytes % 10.5 % (19.3-51.7); Mean Cell Volume 72.6 fL (79.4-94.8); Mean Corpuscular Hemoglobin 21.3 pg (25.6-32.2); Mean Corpuscular Hgb Concent. 29.4 g/dL (32.2-35.5); Mean Platelet Volume 10.4 fL (9.4-12.3); Monocyte (Absolute #) 0.35 x10^3/uL (0.24-0.86); Monocytes % 5.1 % (4.7-12.5); Neutrophil % 82.8 % (34.0-71.1); Platelet Count 87 x10^3/uL (182-369); Red Blood Count 3.61 x10^6/uL (3.93-5.22); White Blood Count 6.8 x10^3/uL (3.98-10.04)
[2024-07-11 04:38] LABS: Slide Review 1 YES
--- NOTE | 2024-07-11 05:09 | PCM.HP ---
History of Present Illness - Chief Complaint Chief Complaint: Greater trochanter fracture of right femur Date: 07/11/24 History of Present Illness: Ms. CARRILLO is a 74 year old female with a past medical history significant for hypertension, diabetes and hyperlipidemia who presents to the hospital after walking her dogs around 1130 p.m. The leash got pulled a little too hard and she tripped and fell onto her right side. Upon arrival, she was sent for a CT scan that demonstrated a R hip fracture and a hematoma. She was in significant pain but improved with medication. She has been recommended for admission with orthopedic surgery consultation. Initial labs were also notable for a hemoglobin of 7.7. No hematuria, hematemesis or melena noted. - Review of Systems Constitutional: No Fever, No Chills Eyes: No Vision Changes Ears, Nose, & Throat: No Nose Discharge, No Sinus Drainage Respiratory: No Short Of Breath Cardiac: No Chest Pain, No Edema, No Palpitations Abdominal/Gastrointestinal: No Abdominal Pain, No Nausea, No Vomiting, No Diarrhea Genitourinary Symptoms: No Frequency, No Hematuria Musculoskeletal: No Arthralgias, No Back Pain Skin: No Pruritis, No Rash Neurological: No Dizziness, No Focal Weakness Psychological: No Suicidal Ideations Endocrine: No Polyuria, No Polydipsia Hematologic/Lymphatic: No Easy Bruising, No Adenopathy Medications & Allergies Home Medications: Home Medication List Metformin HCl 500 mg PO BID 01/11/19 [History Confirmed 07/11/24] Benazepril/Hydrochlorothiazide [Lotensin Hct 20-25 mg Tablet] 1 tab PO DAILY 08/26/19 [History Confirmed 07/11/24] Magnesium Oxide [Mag-Oxide Magnesium] 250 mg PO DAILY 08/26/19 [History Confirmed 07/11/24] Escitalopram Oxalate [Lexapro] 10 mg PO DAILY 03/10/21 [History Confirmed 07/11/24] Potassium Gluconate 500 mg PO DAILY 03/10/21 [History Confirmed 07/11/24] Acetaminophen 325 mg [Tylenol 325 mg] 500 mg PO Q6HPRN PRN 03/12/21 [History Confirmed 07/11/24] Nitroglycerin 0.4 mg Tablet [Nitrostat 0.4 MG Tablet] 0.4 mg SL Q12H PRN PRN 07/11/24 [History Confirmed 07/11/24] Semaglutide [Ozempic] 0.25 mg SQ WEEKLY 07/11/24 [History Confirmed 07/11/24] Allergies/Adverse Reactions: Allergies Allergy/AdvReac Type Severity Reaction Status Date / Time Penicillins Allergy Verified 07/11/24 01:11 Sulfa (Sulfonamide Allergy Verified 07/11/24 01:11 Antibiotics) - Past Medical History Past Medical History: Yes Neurological History: No Pertinent History ENT History: Cataracts Cardiac History: High Cholesterol, Hypertension Respiratory History: No Pertinent History Endocrine Medical History: Diabetes Type II Musculoskelatal History: No Pertinent History GI Medical History: No Pertinent History History: No Pertinent History Pyscho-Social History: Depression Reproductive Disorders: No Pertinent History - Past Surgical History Past Surgical History: Yes Neuro Surgical History: No Pertinent History Cardiac History: No Pertinent History Respiratory Surgery: No Pertinent History GI Surgical History: No Pertinent History Genitourinary Surgical Hx: No Pertinent History Musculskeletal Surgical Hx: No Pertinent History Female Surgical History: Tubal Ligation Other Surgical History: r wrist - Social History Smoking Status: Never smoker Exposure to second hand smoke: No Alcohol: None Drug Use: none - Social Determinants of Health Will the patient participate in the screening: Yes Do you worry about a steady place to live?: No Do you have any problems with any of the following?: No known problems In the past 12 months,have you had to go without utilities?: No Have you or anyone in your house had to go without enough: No Transportation Issues: No Has anyone in your support network made you feel unsafe?: No - Physical Exam Vital Signs: Vital Signs - 24 hr Temp Pulse Resp BP BP Pulse Ox 07/11/24 04:20 96 07/11/24 03:01 88 18 150/88 96 07/11/24 02:30 89 18 139/71 98 07/11/24 02:00 89 18 156/91 96 07/11/24 01:30 85 20 132/70 95 07/11/24 01:15 98.6 F 84 20 158/56 96 07/11/24 01:10 85 18 158/56 95 General Appearance: no apparent distress Neurologic Exam: alert, oriented x 3 Ears, Nose, Throat Exam: dry mucous membranes Neck Exam: supple Respiratory Exam: No respiratory distress Cardiovascular Exam: regular rate/rhythm Gastrointestinal/Abdomen Exam: soft Extremity Exam: No contusions, No swelling Skin Exam: normal color, No rash Results - Labs Lab/Micro Results: Lab Results-Last 24 Hours 07/11/24 07/11/24 Range/Units 03:28 03:28 WBC 6.8 (3.98-10.04) x10^3/uL RBC 3.61 L (3.93-5.22) x10^6/uL Hgb 7.7 L (11.2-15.7) g/dL Hct 26.2 L (34.1-44.9) % MCV 72.6 L (79.4-94.8) fL MCH 21.3 L (25.6-32.2) pg MCHC 29.4 L (32.2-35.5) g/dL RDW 17.0 H (11.7-14.4) % Plt Count 87 L (182-369) x10^3/uL MPV 10.4 (9.4-12.3) fL Gran % 82.8 H (34.0-71.1) % Immature Gran % (Auto) 0.6 H (0.001-0.429) % Nucleat RBC Rel Count 0.0 (0.00-0.2) % Eos # (Auto) 0.03 L (0.04-0.36) x10^3/uL Immature Gran # (Auto) 0.04 H (0.001-0.031) x10^3u/L Absolute Lymphs (auto) 0.72 L (1.18-3.74) x10^3/uL Absolute Monos (auto) 0.35 (0.24-0.86) x10^3/uL Absolute Nucleated RBC 0.00 (0.00-0.012) x10^3u/L Lymphocytes % 10.5 L (19.3-51.7) % Monocytes % 5.1 (4.7-12.5) % Eosinophils % 0.4 L (0.7-5.8) % Basophils % 0.6 (0.1-1.2) % Absolute Granulocytes 5.65 (1.56-6.13) x10^3/uL Basophils # 0.04 (0.01-0.08) x10^3/uL Sodium 138 (135-145) mmol/L Potassium 4.1 (3.5-5.1) mmol/L Chloride 105 (98-107) mmol/L Carbon Dioxide 23 (22-30) mmol/L Anion Gap 14.0 (5-15) MEQ/L BUN 18 H (7-17) mg/dL Creatinine 0.60 (0.52-1.04) mg/dL Estimated GFR 94.7 ML/MIN Glucose 169 H (74-106) mg/dL Calcium 9.2 (8.4-10.2) mg/dL Total Bilirubin 0.60 (0.2-1.3) mg/dL AST 51 H (14-36) U/L ALT 39 H (0-35) U/L Alkaline Phosphatase 134 H (38-126) U/L Serum Total Protein 6.6 (6.3-8.2) g/dL Albumin 4.3 (3.5-5.0) g/dL Slides for Path Review YES - Radiology Impressions Radiology Exams & Impressions: Radiology Procedures Category Date Time Status FEMUR Stat Exams 07/11/24 03:16 Taken LOWER EXTREMITY WO CONTRAST [CT] Routine Exams 07/11/24 05:02 Ordered LOWER EXTREMITY WO CONTRAST [CT] Stat Exams 07/11/24 01:33 Completed Assessment/Plan (1) Greater trochanter fracture Current Visit: Yes Status: Acute Qualifiers: Encounter type: initial encounter Fracture type: closed Fracture alignment: nondisplaced Laterality: right Qualified Code(s): S72.114A - Nondisplaced fracture of greater trochanter of right femur, initial encounter for closed fracture Assessment & Plan: Secondary to fall 1. Admit to hospital 2. Orthopedic surgery eval 3. Pain control 4. PT eval 5. DVT prophylaxis Code(s): S72.113A - DISP FX OF GREATER TROCHANTER OF UNSP FEMUR, INIT (2) Contusion, hip Current Visit: Yes Status: Acute Qualifiers: Encounter type: initial encounter Laterality: right Qualified Code(s): S70.01XA - Contusion of right hip, initial encounter Assessment & Plan: Secondary to fall/fracture with initial hematoma seen on CT and Hgb 7.[address] scan 2. Defer anticoagulation for now 3. Trend H/H 4. Ortho consult Code(s): S70.00XA - CONTUSION OF UNSPECIFIED HIP, INITIAL ENCOUNTER (3) Essential (primary) hypertension Current Visit: Yes Status: Acute Assessment & Plan: Under reasonable control 1. Continue bp meds 2. Low Na diet 3. Monitor blood pressure readings Code(s): I10 - ESSENTIAL (PRIMARY) HYPERTENSION (4) Type 2 diabetes mellitus without complications Current Visit: Yes Status: Acute Qualifiers: Diabetes mellitus half-way insulin use: without half-way use Qualified Code(s): E11.9 - Type 2 diabetes mellitus without complications Assessment & Plan: Blood sugars under reasonable control 1. ADA diet 2. FSBS qAC/HS 3. SSI Code(s): E11.9 - TYPE 2 DIABETES MELLITUS WITHOUT COMPLICATIONS (5) Fall Current Visit: Yes Status: Acute Qualifiers: Encounter type: initial encounter Qualified Code(s): W19.XXXA - Unspecified fall, initial encounter Code(s): W19.XXXA - UNSPECIFIED FALL, INITIAL ENCOUNTER Telemedicine Encounter - Telemedicine Encounter Telemedicine Encounter: "The entirety of this encounter was performed via Telemedicine" This visit was performed using real-time audio and video connection between my location and thepatients locationwith the assistance of a surrogateat the patients location. Written or verbal consent was obtained from the patient/guardian to perform this visit [facility]. Any patient questions regarding the telemedicine interaction were answered.
[2024-07-11] MEDS ORDERED: Zofran 4 MG/2 ML VIAL IV PRN (05:19)
[2024-07-11] MEDS ORDERED: HUMALOG SQ PRN (05:19)
[2024-07-11] MEDS ORDERED: Hydromorphone 1 mg/ml Injection IV PRN (05:20)
[2024-07-11] MEDS: Sodium Chloride 0.9% 1000 ML 1,000 ML IV SCH (05:46)
[2024-07-11 05:53] LABS: ABO TYPING O; Antibody Screen NEGATIVE (NEGATIVE); RH TYPING NEGATIVE
[2024-07-11 07:30] VITALS: RESP 16
[2024-07-11 07:44] LABS: Absolute Neutrophil Ct (ANC) 3.01 x10^3/uL (1.56-6.13); BASOPHIL % 0.7 % (0.1-1.2); Basophil (Absolute #) 0.03 x10^3/uL (0.01-0.08); Eosinophil % 1.2 % (0.7-5.8); Eosinophil (Absolute #) 0.05 x10^3/uL (0.04-0.36); Hematocrit 24.9 % (34.1-44.9); Hemoglobin 7.2 g/dL (11.2-15.7); IMMATURE GRAN # 0.02 x10^3u/L (0.001-0.031); IMMATURE GRAN % 0.5 % (0.001-0.429); Lymphocyte (Absolute #) 0.82 x10^3/uL (1.18-3.74); Lymphocytes % 19.1 % (19.3-51.7); Mean Cell Volume 73.9 fL (79.4-94.8); Mean Corpuscular Hemoglobin 21.4 pg (25.6-32.2); Mean Corpuscular Hgb Concent. 28.9 g/dL (32.2-35.5); Mean Platelet Volume 10.8 fL (9.4-12.3); Monocyte (Absolute #) 0.36 x10^3/uL (0.24-0.86); Monocytes % 8.4 % (4.7-12.5); Neutrophil % 70.1 % (34.0-71.1); Platelet Count 73 x10^3/uL (182-369); Red Blood Count 3.37 x10^6/uL (3.93-5.22); Red Cell Distribution Width 17.2 % (11.7-14.4); White Blood Count 4.3 x10^3/uL (3.98-10.04)
[2024-07-11 08:42] LABS: Slide Review 1 YES
--- NOTE | 2024-07-11 08:48 | XRAY ---
Indication: Pain following fall. Comparison: None 2 view right femur demonstrates osteopenia and mild/moderate tricompartment knee degenerative arthropathy greatest lateral compartment. No other bony, articular, or soft tissue abnormalities.
[2024-07-11 11:35] VITALS: BP 127/58; PULSE 74; TEMP 97.6; O2SAT 94
--- NOTE | 2024-07-11 12:02 | PCM.DS ---
Discharge Summary Date of Admission: 07/11/24 03:52 Date of Discharge: 07/11/24 Admitting Physician: CYRUS ESQUEDA MD Consults: Consults on Case 07/11/24 03:54 Consult Ortho ROUTINE 07/11/24 07:00 Consult Ortho ROUTINE Primary Care Provider: NUBIA QUINONEZ Allergies Allergies Penicillins Allergy (Verified 07/11/24 01:11) Sulfa (Sulfonamide Antibiotics) Allergy (Verified 07/11/24 01:11) Hospital Summary - Hospital Course Hospital Course: Ms. CARRILLO is a 74 year old female with a past medical history significant for hypertension, diabetes and hyperlipidemia. She presented to the hospital on 07/11/24 after walking her dogs around 1130 p.m on 02/09/25. The leash got pulled a little too hard and she tripped and fell onto her right side. Upon arrival, she was sent for a CT scan that demonstrated a R hip fracture and a hematoma. She was in significant pain but improved with medication. Orthopedic surgery consulted and he is ok for pt to d/c and f/u in 2 weeks OP. PT to eval and walker ordered per ortho recs. He is ok with total weight bearing. will d/c with RICE techniques and oral narcotic pain control PRN. Initial labs were also notable for a hemoglobin of 7.7. No hematuria, hematemesis or melena noted. Will need OP f/u with PCP. She denies nay further concerns at this time. - Vitals & Intake/Output Vital Signs: Vital Signs Temperature 97.6 F 07/11/24 11:34 Pulse Rate 74 07/11/24 11:34 Respiratory Rate 16 07/11/24 11:34 Blood Pressure 127/58 07/11/24 11:34 O2 Sat by Pulse Oximetry 94 L 07/11/24 11:34 Intake & Output: Intake & Output 07/08/24 07/09/24 07/10/24 07/11/24 11:59 11:59 11:59 11:59 Output Total 250 Balance -250 Weight 87.6 kg - Lab Result Diagrams: 07/11/24 07:42 07/11/24 03:28 Lab Results-Last 24 Hrs: Lab Results-Last 24 Hours 07/11/24 07/11/24 07/11/24 Range/Units 03:28 03:28 05:03 WBC 6.8 (3.98-10.04) x10^3/uL RBC 3.61 L (3.93-5.22) x10^6/uL Hgb 7.7 L (11.2-15.7) g/dL Hct 26.2 L (34.1-44.9) % MCV 72.6 L (79.4-94.8) fL MCH 21.3 L (25.6-32.2) pg MCHC 29.4 L (32.2-35.5) g/dL RDW 17.0 H (11.7-14.4) % Plt Count 87 L (182-369) x10^3/uL MPV 10.4 (9.4-12.3) fL Gran % 82.8 H (34.0-71.1) % Immature Gran % (Auto) 0.6 H (0.001-0.429) % Nucleat RBC Rel Count 0.0 (0.00-0.2) % Eos # (Auto) 0.03 L (0.04-0.36) x10^3/uL Immature Gran # (Auto) 0.04 H (0.001-0.031) x10^3u/L Absolute Lymphs (auto) 0.72 L (1.18-3.74) x10^3/uL Absolute Monos (auto) 0.35 (0.24-0.86) x10^3/uL Absolute Nucleated RBC 0.00 (0.00-0.012) x10^3u/L Lymphocytes % 10.5 L (19.3-51.7) % Monocytes % 5.1 (4.7-12.5) % Eosinophils % 0.4 L (0.7-5.8) % Basophils % 0.6 (0.1-1.2) % Absolute Granulocytes 5.65 (1.56-6.13) x10^3/uL Basophils # 0.04 (0.01-0.08) x10^3/uL Sodium 138 (135-145) mmol/L Potassium 4.1 (3.5-5.1) mmol/L Chloride 105 (98-107) mmol/L Carbon Dioxide 23 (22-30) mmol/L Anion Gap 14.0 (5-15) MEQ/L BUN 18 H (7-17) mg/dL Creatinine 0.60 (0.52-1.04) mg/dL Estimated GFR 94.7 ML/MIN Glucose 169 H (74-106) mg/dL POC Glucometer (74 to 106) mg/dL Calcium 9.2 (8.4-10.2) mg/dL Total Bilirubin 0.60 (0.2-1.3) mg/dL AST 51 H (14-36) U/L ALT 39 H (0-35) U/L Alkaline Phosphatase 134 H (38-126) U/L Serum Total Protein 6.6 (6.3-8.2) g/dL Albumin 4.3 (3.5-5.0) g/dL Slides for Path Review YES ABO Group O Rh Factor NEGATIVE Antibody Screen NEGATIVE (NEGATIVE) 07/11/24 07/11/24 07/11/24 Range/Units 07:36 07:42 11:26 WBC 4.3 (3.98-10.04) x10^3/uL RBC 3.37 L (3.93-5.22) x10^6/uL Hgb 7.2 L (11.2-15.7) g/dL Hct 24.9 L (34.1-44.9) % MCV 73.9 L (79.4-94.8) fL MCH 21.4 L (25.6-32.2) pg MCHC 28.9 L (32.2-35.5) g/dL RDW 17.2 H (11.7-14.4) % Plt Count 73 L (182-369) x10^3/uL MPV 10.8 (9.4-12.3) fL Gran % 70.1 (34.0-71.1) % Immature Gran % (Auto) 0.5 H (0.001-0.429) % Nucleat RBC Rel Count 0.0 (0.00-0.2) % Eos # (Auto) 0.05 (0.04-0.36) x10^3/uL Immature Gran # (Auto) 0.02 (0.001-0.031) x10^3u/L Absolute Lymphs (auto) 0.82 L (1.18-3.74) x10^3/uL Absolute Monos (auto) 0.36 (0.24-0.86) x10^3/uL Absolute Nucleated RBC 0.00 (0.00-0.012) x10^3u/L Lymphocytes % 19.1 L (19.3-51.7) % Monocytes % 8.4 (4.7-12.5) % Eosinophils % 1.2 (0.7-5.8) % Basophils % 0.7 (0.1-1.2) % Absolute Granulocytes 3.01 (1.56-6.13) x10^3/uL Basophils # 0.03 (0.01-0.08) x10^3/uL Sodium (135-145) mmol/L Potassium (3.5-5.1) mmol/L Chloride (98-107) mmol/L Carbon Dioxide (22-30) mmol/L Anion Gap (5-15) MEQ/L BUN (7-17) mg/dL Creatinine (0.52-1.04) mg/dL Estimated GFR ML/MIN Glucose (74-106) mg/dL POC Glucometer 118 H 118 H (74 to 106) mg/dL Calcium (8.4-10.2) mg/dL Total Bilirubin (0.2-1.3) mg/dL AST (14-36) U/L ALT (0-35) U/L Alkaline Phosphatase (38-126) U/L Serum Total Protein (6.3-8.2) g/dL Albumin (3.5-5.0) g/dL Slides for Path Review YES ABO Group Rh Factor Antibody Screen (NEGATIVE) Micro Results-Entire Visit: Accuchecks Date 07/11/24 Date 07/11/24 Time 11:35 Time 07:41 - Radiology Exams Ordered Rad Exams-Entire Visit: Radiology Procedures Category Date Time Status FEMUR Stat Exams 07/11/24 03:16 Completed LOWER EXTREMITY WO CONTRAST [CT] Stat Exams 07/11/24 01:33 Completed - Procedures and Test Procedures and Tests throughout Hospitalization: Therapy Orders & Screens 07/11/24 08:00 PT Eval & Treat ( Order) ONCE Reason for Eval:: Fall, R femur fracture Diagnosis: Greater trochanter fracture of right femur Discharge Exam General Appearance: no apparent distress, alert Neurologic Exam: alert, oriented x 3, cooperative, normal mood/affect, nml cerebellar function, sensation nml, No motor deficits Eye Exam: PERRL, EOMI, eyes nml inspection Ears, Nose, Throat Exam: normal ENT inspection, pharynx normal, moist mucous membranes Neck Exam: normal inspection, non-tender, supple, full range of motion Respiratory Exam: normal breath sounds, lungs clear, No respiratory distress Cardiovascular Exam: regular rate/rhythm, normal heart sounds Gastrointestinal/Abdomen Exam: soft, No tenderness, No mass Pelvic Exam: deferred Rectal Exam: deferred Back Exam: normal inspection, normal range of motion, No CVA tenderness, No vertebral tenderness Extremity Exam: normal inspection, normal range of motion, tenderness (Right hip hematoma and pain) Skin Exam: normal color, warm, dry Final Diagnosis/Problem List - Final Discharge Diagnosis/Problem (1) Greater trochanter fracture Current Visit: Yes Status: Acute Assessment & Plan: - Ortho eval - OK to d/c per ortho with walker and full weight bearing - PT eval - Oral narcoic pain control - CBC. CMP reviewed - ICE Code(s): S72.113A - DISP FX OF GREATER TROCHANTER OF UNSP FEMUR, INIT (2) Hematoma of right hip Current Visit: Yes Status: Acute Assessment & Plan: - From ground level fall after tripping when walking dog. - RICE techniques and oral narcotic pain control Code(s): S70.01XA - CONTUSION OF RIGHT HIP, INITIAL ENCOUNTER (3) Fall Current Visit: Yes Status: Acute Assessment & Plan: - Ground level fall after tripping when walking dog. Code(s): W19.XXXA - UNSPECIFIED FALL, INITIAL ENCOUNTER (4) Thrombocytopenia Current Visit: Yes Status: Chronic Assessment & Plan: - PLT 87 - F/U OP with PCP - Appears chronic per old labs (5) Type 2 diabetes mellitus without complications Current Visit: Yes Status: Chronic Assessment & Plan: Blood sugars under reasonable control 1. ADA diet 2. FSBS qAC/HS 3. SSI Code(s): E11.9 - TYPE 2 DIABETES MELLITUS WITHOUT COMPLICATIONS (6) Anemia Current Visit: Yes Status: Chronic Assessment & Plan: - Hgb 7.7 - F/U OP with PCP for further workup Code(s): D64.9 - ANEMIA, UNSPECIFIED - Discharge Discharge Date: 07/11/24 Disposition: Home, Self-Care Condition: Stable Prescriptions: Continue Metformin HCl 500 mg PO BID Benazepril/Hydrochlorothiazide [Lotensin Hct 20-25 mg Tablet] 1 tab PO DAILY Magnesium Oxide [Mag-Oxide Magnesium] 250 mg PO DAILY Escitalopram Oxalate [Lexapro] 10 mg PO DAILY Potassium Gluconate 500 mg PO DAILY Acetaminophen 325 mg [Tylenol 325 mg] 500 mg PO Q6HPRN PRN PRN Reason: Mild To Moderate Pain Nitroglycerin 0.4 mg Tablet [Nitrostat 0.4 MG Tablet] 0.4 mg SL Q12H PRN PRN PRN Reason: Chest Pain Semaglutide [Ozempic] 0.25 mg SQ WEEKLY Follow up with: NUBIA QUINONEZ NP [Primary Care Provider] - 07/18/24 9:15 am OMID MARTIN NP [NON-STAFF PHY W/O PRIVILEGES] - 07/26/24 1:30 pm
[2024-07-11] MEDS: TYLENOL 325 MG PO PRN (14:16)
--- NOTE | 2024-07-12 11:09 | CONS ---
The patient was seen and examined, and her chart was reviewed. HISTORY: The patient is a 74-year-old female who was walking her dog last night when she got caught up in the dog's leash causing her to fall, landing on her right hip. She was having pain in the hip and presented to the emergency room. A CT and x-ray were taken of her right hip, and she was noted to have a nondisplaced avulsion fracture of the greater trochanter. She was admitted for pain control, and orthopedic consultation was requested today. PAST MEDICAL HISTORY: The patient has a significant medical history for hypertension, anemia, type 2 diabetes, and thrombocytopenia. PAST SURGICAL HISTORY: She does not have any surgical history listed. HOME MEDICATIONS: Ozempic, Lexapro, Lotensin, p.r.n. Tylenol, potassium, Nitrostat, metformin, mag oxide, and p.r.n. hydrocodone 5 mg. ALLERGIES: Penicillin and sulfa. LAB DATA AND TESTS: X-rays of the right hip show that there is a nondisplaced tiny avulsion fracture involving the tip of the greater trochanter. Date of the x-ray was 07/11/2024. CT scan of the right hip also dated 07/11/2024, again shows the nondisplaced comminuted avulsion fracture of the greater trochanter. No other fractures are noted. PHYSICAL EXAMINATION: VITAL SIGNS: She weighs 193 pounds. She has a BMI of 38. She is 5 feet 1 inch tall. EXTREMITIES: CMS is intact to the right lower extremity. She has a good range of motion of the right hip and complains of pain over the greater trochanter. There is no tenderness to palpation in the groin or along the hip joint. There is tenderness to palpation over the greater trochanter. No other areas of tenderness are noted in the right lower extremity. Pulses are 2/4 at the popliteal, posterior tibial, and dorsalis pedis. NEUROLOGIC: Reflexes are 2/4 at the patella, Achilles, and plantar. Motor strength is 5/5. Sensory is intact to light touch. No low back tenderness. IMPRESSION: Nondisplaced avulsion fracture of greater trochanter, right hip. PLAN: Patient may be up and ambulating as tolerated with weightbearing as tolerated on the right lower extremity with a walker, and as the patient is able, she can transition to a cane and then to unassisted ambulation. Pain control as needed. Patient can be treated as an outpatient at this point. Patient will follow up in the orthopedic office in 2 weeks for recheck evaluation with x-ray. Thank you for allowing me to see the patient and participate in her care.
== END 2024-07-11 15:18 | disposition home or self-care (01) ==
LOC: ED 00:55 → MED SURG 03:52
PROVIDERS: ADMIT Internal Medicine Nephrology; ATTEND Internal Medicine Nephrology
DX: S72.114A Nondisplaced fracture of greater trochanter of right femur, initial encounter for closed fracture (principal); S70.01XA Contusion of right hip, initial encounter; W19.XXXA Unspecified fall, initial encounter; D69.6 Thrombocytopenia, unspecified; E11.9 Type 2 diabetes mellitus without complications; D64.9 Anemia, unspecified; I10 Essential (primary) hypertension; E78.5 Hyperlipidemia, unspecified; Z79.899 Other long term (current) drug therapy
CPT/HCPCS: 36415; 73552; 73700; 80053; 82947; 85025; 86850; 86900; 86901; 96374; 96375; 97161; Q3014; 99285; J2270; J2405; A9270-GY

== ENCOUNTER 2024-07-18 10:01 | Inpatient (IN) | payer MEDICARE, OTHER ==
--- NOTE | 2024-07-18 12:20 | XRAY ---
Indication: Right hip pain following fall one week ago. Known right proximal femur fracture. Multiple contiguous axial images obtained through the pelvis with special attention to the osseous structures. Sagittal and coronal reformatted images obtained. Comparison: July 11, 2024 Both hips are intact. Osseous structures remain demineralized. Again nondisplaced comminuted fracture right greater trochanter. Fracture line now extends intratrochanteric without displacement. No healing callus formation. Stable 3 x 5 mm right intratrochanteric sclerotic lesion, probable bone island. Elsewhere stable mild/moderate degenerative changes visualized lower lumbar spine. Visualized noncontrasted soft tissues again demonstrates mild aortoiliac calcifications and sigmoid diverticulosis. No focal solid/cystic soft tissue mass or abnormal fluid collection. Impression: 1. Again nondisplaced comminuted fracture right greater trochanter. New intratrochanteric extension of fracture line. No healing callus formation. 2. Chronic findings including osteopenia, lower lumbar degenerative spondylosis, tiny right intratrochanteric bone island, sigmoid diverticulosis, and arteriosclerotic disease.
--- NOTE | 2024-07-18 13:01 | ERPHSYRPT ---
- History of Present Illness Source: patient, production supervisor trainee Patient Subjective Stated Complaint: pt here for right hip pain today, she states she was unable to get of chair at home. pt states a week ago she fell and broke her right hip that did not require surgery Triage Nursing Assessment: pt alert, arrived per ems, resp easy, skin w/d/p. moves all ext , pain when moves right leg . no edema ntoed Physician History: About a week ago the patient had a fall and was evaluated here. She had a comminuted mildly displaced fracture of her great Trochanter. It is nondisplaced. She had been doing okay at home. She has been followed by Dr. Ybarra who is an orthopedist. They are treating it conservatively. She was sitting on a barstool today at home and then was unable to get up due to pain. Anytime that she would take a step or move or put any pressure on the foot or the hip it was quite painful.She is unable to ambulate on her own with a walker due to pain. There is no acute trauma.Pain is described as aching. Modifying Factors: Improves With: pain medication. Worsens With: movement Allergies/Adverse Reactions: Penicillins Allergy (Verified 07/18/24 10:16) Sulfa (Sulfonamide Antibiotics) Allergy (Verified 07/18/24 10:16) Home Medications: Metformin HCl 500 mg PO BID 01/11/19 [History] Benazepril/Hydrochlorothiazide [Lotensin Hct 20-25 mg Tablet] 1 tab PO DAILY [History] Magnesium Oxide [Mag-Oxide Magnesium] 250 mg PO DAILY 08/26/19 [History] Escitalopram Oxalate [Lexapro] 10 mg PO DAILY 03/10/21 [History] Potassium Gluconate 500 mg PO DAILY 03/10/21 [History] Acetaminophen 325 mg [Tylenol 325 mg] 500 mg PO Q6HPRN PRN 03/12/21 [History] Nitroglycerin 0.4 mg Tablet [Nitrostat 0.4 MG Tablet] 0.4 mg SL Q12H PRN PRN 07/11/24 [History] Semaglutide [Ozempic] 0.25 mg SQ WEEKLY 07/11/24 [History] Hx Tetanus, Diphtheria Vaccination/Date Given: No Hx Influenza Vaccination/Date Given: Yes Hx Pneumococcal Vaccination/Date Given: No Immunizations Up to Date: Yes Travel Risk - International Travel Have you traveled outside of the country in past 3 weeks: No - Emerging Infectious Disease Are you exhibiting symptoms associated with any current EIDs: No - Review of Systems Constitutional: No Symptoms Eyes: No Symptoms Ears, Nose, & Throat: No Symptoms Skin: No Symptoms Neurological: No Symptoms All Other Systems: Reviewed and Negative - Past Medical History Pertinent Past Medical History: Yes Neurological History: No Pertinent History ENT History: Cataracts Cardiac History: High Cholesterol, Hypertension Respiratory History: No Pertinent History Endocrine Medical History: Diabetes Type II Musculoskeletal History: No Pertinent History GI Medical History: No Pertinent History History: No Pertinent History Psycho-Social History: Depression Female Reproductive Disorders: No Pertinent History Other Medical History: fracture right hip 07/2024 - Past Surgical History Past Surgical History: Yes Neuro Surgical History: No Pertinent History Cardiac: No Pertinent History Respiratory: No Pertinent History Gastrointestinal: No Pertinent History Genitourinary: No Pertinent History Musculoskeletal: No Pertinent History Female Surgical History: Tubal Ligation Other Surgical History: r wrist - Social History Smoking Status: Never smoker Exposure to second hand smoke: No Drug Use: none - Social Determinants of Health Will the patient participate in the screening: Yes Do you worry about a steady place to live?: No Do you have any problems with any of the following?: No known problems In the past 12 months,have you had to go without utilities?: No Transportation Issues: No Has anyone in your support network made you feel unsafe?: No Have you or anyone in your house had to go w/o enough food: No - Nursing Vital Signs Nursing Vital Signs: Initial Vital Signs Temperature 97.1 F 07/18/24 10:14 Pulse Rate 80 07/18/24 10:14 Respiratory Rate 18 07/18/24 10:14 Blood Pressure 140/71 07/18/24 10:14 O2 Sat by Pulse Oximetry 94 L 07/18/24 10:14 Pain Scale Pain Intensity 7 - Physical Exam General Appearance: no apparent distress Eyes, Ears, Nose, Throat Exam: normal ENT inspection Hips Exam: right: limited range of motion, pain, soft tissue tenderness Legs Exam: bilateral leg: non-tender, normal inspection, normal range of motion Knees Exam: bilateral knee: non-tender, normal inspection, normal range of motion Neuro/Tendon Exam: normal sensation, normal motor functions Mental Status Exam: alert, oriented x 3 Skin Exam: normal color, warm, dry SpO2: 97 - Course Nursing assessment & vital signs reviewed: Yes Ordered Tests: Active Orders 24 hr Category Date Time Status PELVIS WITHOUT CONTRAST [CT] Stat Exams 07/18/24 11:16 Completed - Progress Progress: unchanged Progress Note: Patient's CT Showed a fracture that was extending just a little bit. It went at the towards the intertrochanteric area. It is still nondisplaced. The patient cannot get around. I talked to her and she says she prefer to be admitted and maybe have physical therapy involved. I spoke with the spitalist. His name was Dr. bunn He agreed to accept the patient. 07/18/24 12:57 Medical Desision Making - Independent Historian Additional History obtained from: Family - Discussion of managment Care discussed with:: hospitalist Agreed on:: Treatment plan, place in obs Will see patient: in hospital - Diagnostic Testing Diagnostic test were ordered, analyzed, and reviewed by me: Yes - Departure Departure Disposition: Observation Clinical Impression: Trochanteric fracture of femur Condition: Stable Critical Care Time: No Referrals: NUBIA QUINONEZ NP [Primary Care Provider] - Follow up/PCP as directed
--- NOTE | 2024-07-18 14:23 | PCM.HP ---
History of Present Illness - Chief Complaint Chief Complaint: Trochanteric fracture Date: 07/18/24 History of Present Illness: is a 74 year old female with a history of type 2 diabetes mellitus, hypertension, hyperlipidemia, and depression who presented to ED 07/18/24 with worsening right hip pain. One week ago, she sustained a ground level fall while walking her dog and was found to have a comminuted, mildly displaced but overall nondisplaced fracture of the right greater trochanter. She was managed nonoperatively under orthopedic follow-up with Dr. Ybarra and had reportedly been doing well at home. Today, while sitting on a barstool, she developed acute exacerbation of right hip pain without any new trauma. She reports severe pain with movement and weight-bearing, resulting in inability to ambulate, even with a walker. She rates her pain 10/10 on a numerical pain scale with radiation to her back and down her right leg. On evaluation, vitals are stable. CT pelvis demonstrates progression of the fracture with new intratrochanteric extension and no evidence of healing or callus formation. Chronic findings include osteopenia, lower lumbar degenerative changes, sigmoid diverticulosis, and arteriosclerotic disease. Plan is to keep her [id number] on the right side. Ortho will be consulted again to reassess the fracture given the new extension and her worsening symptoms. PT/OT will evaluate to help guide safe discharge planning and will initiate pain control. - Review of Systems Constitutional: No Symptoms Eyes: No Symptoms Ears, Nose, & Throat: No Symptoms Respiratory: No Symptoms Cardiac: No Symptoms Abdominal/Gastrointestinal: No Symptoms Genitourinary Symptoms: No Symptoms Musculoskeletal: Joint Pain (right hip) Skin: No Symptoms Neurological: No Symptoms Psychological: No Symptoms Endocrine: No Symptoms Hematologic/Lymphatic: No Symptoms Immunological/Allergic: No Symptoms Medications & Allergies Home Medications: Home Medication List Metformin HCl 500 mg PO BID 01/11/19 [History Confirmed 07/18/24] Benazepril/Hydrochlorothiazide [Lotensin Hct 20-25 mg Tablet] 1 tab PO DAILY 08/26/19 [History Confirmed 07/18/24] Magnesium Oxide [Mag-Oxide Magnesium] 250 mg PO DAILY 08/26/19 [History Confirmed 07/18/24] Escitalopram Oxalate [Lexapro] 10 mg PO DAILY 03/10/21 [History Confirmed 07/18/24] Potassium Gluconate 500 mg PO DAILY 03/10/21 [History Confirmed 07/18/24] Acetaminophen 325 mg [Tylenol 325 mg] 500 mg PO Q6HPRN PRN 03/12/21 [History Confirmed 07/18/24] Hydrocodone/Acetaminophen [Hydrocodone-Acetamin 5-325 mg] 1 tab PO Q6HPRN PRN 3 Days #12 tablet MDD 4 07/11/24 [Rx Confirmed 07/18/24] Nitroglycerin 0.4 mg Tablet [Nitrostat 0.4 MG Tablet] 0.4 mg SL Q12H PRN PRN 07/11/24 [History Confirmed 07/18/24] Semaglutide [Ozempic] 0.25 mg SQ WEEKLY 07/11/24 [History Confirmed 07/18/24] Allergies/Adverse Reactions: Allergies Allergy/AdvReac Type Severity Reaction Status Date / Time Penicillins Allergy Verified 07/18/24 10:16 Sulfa (Sulfonamide Allergy Verified 07/18/24 10:16 Antibiotics) - Past Medical History Past Medical History: Yes Neurological History: No Pertinent History ENT History: Cataracts Cardiac History: High Cholesterol, Hypertension Respiratory History: No Pertinent History Endocrine Medical History: Diabetes Type II Musculoskelatal History: No Pertinent History GI Medical History: No Pertinent History History: No Pertinent History Pyscho-Social History: Depression Reproductive Disorders: No Pertinent History Comment: fracture right hip 07/2024 - Past Surgical History Past Surgical History: Yes Neuro Surgical History: No Pertinent History Cardiac History: No Pertinent History Respiratory Surgery: No Pertinent History GI Surgical History: No Pertinent History Genitourinary Surgical Hx: No Pertinent History Musculskeletal Surgical Hx: No Pertinent History Female Surgical History: Tubal Ligation Other Surgical History: r wrist Significant Family History: cancer, diabetes, other (copd) - Social History Smoking Status: Never smoker Exposure to second hand smoke: No Alcohol: None Drug Use: none - Social Determinants of Health Will the patient participate in the screening: Yes Do you worry about a steady place to live?: No Do you have any problems with any of the following?: No known problems In the past 12 months,have you had to go without utilities?: No Have you or anyone in your house had to go without enough: No Transportation Issues: No Has anyone in your support network made you feel unsafe?: No Does the patient want assistance with any of the above?: No - Physical Exam Vital Signs: Vital Signs - 24 hr Temp Pulse Resp BP BP Pulse Ox 07/18/24 13:02 97 07/18/24 13:00 165/84 94 L 07/18/24 12:30 161/69 94 L 07/18/24 12:00 168/77 97 07/18/24 11:00 85 18 147/70 96 07/18/24 10:30 141/66 95 07/18/24 10:14 97.1 F 70 16 140/71 140/71 87 L General Appearance: no apparent distress Neurologic Exam: alert, oriented x 3, cooperative Eye Exam: PERRL/EOMI Ears, Nose, Throat Exam: normal ENT inspection Neck Exam: normal inspection Respiratory Exam: normal breath sounds, lungs clear Cardiovascular Exam: regular rate/rhythm, normal heart sounds Gastrointestinal/Abdomen Exam: soft, normal bowel sounds Pelvic Exam: not done Rectal Exam: deferred Back Exam: normal inspection Extremity Exam: limited range of motion (right hip) Skin Exam: normal color Results - Radiology Impressions Radiology Exams & Impressions: Radiology Procedures Category Date Time Status PELVIS WITHOUT CONTRAST [CT] Stat Exams 07/18/24 11:16 Completed Assessment/Plan (1) Trochanteric fracture of femur Current Visit: Yes Status: Acute Assessment & Plan: -CT pelvis shows the same fracture but with new intratrochanteric extension -Ortho consulted appreciate recs -Pain control [place]/dilaudid -vitamin D level/calcium levels -PT/OT -Savck Code(s): S72.109A - UNSP TROCHANTERIC FRACTURE OF UNSP FEMUR, INIT FOR CLOS FX (2) HLD (hyperlipidemia) Current Visit: Yes Status: Acute Assessment & Plan: -Patient does not appear to be on statin- continue OP regimen Code(s): E78.5 - HYPERLIPIDEMIA, UNSPECIFIED (3) Depression Current Visit: Yes Status: Acute Assessment & Plan: -Resume Lexapro Code(s): F32.A - DEPRESSION, UNSPECIFIED (4) Essential (primary) hypertension Current Visit: No Status: Acute Assessment & Plan: -Continue home med benazepril/hctz Code(s): I10 - ESSENTIAL (PRIMARY) HYPERTENSION (5) Type 2 diabetes mellitus without complications Current Visit: No Status: Chronic Qualifiers: Diabetes mellitus intermission coordinator insulin use: without intermission coordinator use Qualified Code(s): E11.9 - Type 2 diabetes mellitus without complications Assessment & Plan: -ADA diet -SSI -A1c VTE: hold for ?sx - scd Dispo: 1-2 days Code status: Full code Code(s): E11.9 - TYPE 2 DIABETES MELLITUS WITHOUT COMPLICATIONS
[2024-07-18] MEDS ORDERED: Zofran 4 MG/2 ML VIAL IV PRN (14:37)
[2024-07-18] MEDS ORDERED: HUMALOG SQ PRN (14:37)
[2024-07-18] MEDS ORDERED: TYLENOL 325 MG PO PRN (14:37)
[2024-07-18] MEDS ORDERED: Nitrostat 0.4 MG Tablet SL PRN (14:41)
[2024-07-18 15:06] LABS: Absolute Neutrophil Ct (ANC) 3.01 x10^3/uL (1.56-6.13); BASOPHIL % 0.8 % (0.1-1.2); Basophil (Absolute #) 0.03 x10^3/uL (0.01-0.08); Eosinophil % 0.3 % (0.7-5.8); Eosinophil (Absolute #) 0.01 x10^3/uL (0.04-0.36); Hematocrit 24.4 % (34.1-44.9); Hemoglobin 7.2 g/dL (11.2-15.7); IMMATURE GRAN # 0.01 x10^3u/L (0.001-0.031); IMMATURE GRAN % 0.3 % (0.001-0.429); Lymphocyte (Absolute #) 0.52 x10^3/uL (1.18-3.74); Lymphocytes % 13.8 % (19.3-51.7); Mean Cell Volume 74.4 fL (79.4-94.8); Mean Corpuscular Hgb Concent. 29.5 g/dL (32.2-35.5); Mean Platelet Volume 10.6 fL (9.4-12.3); Monocyte (Absolute #) 0.18 x10^3/uL (0.24-0.86); Monocytes % 4.8 % (4.7-12.5); Platelet Count 76 x10^3/uL (182-369); Red Blood Count 3.28 x10^6/uL (3.93-5.22); Red Cell Distribution Width 18.7 % (11.7-14.4); White Blood Count 3.8 x10^3/uL (3.98-10.04)
[2024-07-18] MEDS: Hydromorphone 1 mg/ml Injection IV PRN (15:08)
[2024-07-18] MEDS ORDERED: MEDICATION INTERVENTION MC SCH (15:15)
[2024-07-18 15:17] LABS: ALBUMIN 4.1 g/dL (3.5-5.0); BILIRUBIN,TOTAL 0.8 mg/dL (0.2-1.3); Calcium 9.2 mg/dL (8.4-10.2); Creatinine 1 0.61 mg/dL (0.52-1.04); EST GLOMERULAR FILTRATION RATE 94.3 ML/MIN; Potassium 3.9 mmol/L (3.5-5.1); Total Protein 6.6 g/dL (6.3-8.2)
[2024-07-18 15:31] LABS: Slide Review 1 YES
[2024-07-18 16:41] LABS: Iron 34 ug/dL (37-170); Iron Saturation 7 % (20-39); TIBC 476 ug/dL (265-462)
[2024-07-18 17:42] LABS: Ferritin 7.42 ng/mL (11.1-264); Folate (Folic Acid) 11.8 ng/mL (2.76 - >20); Vitamin B12 > 1000 pg/mL (239-931)
[2024-07-18] MEDS: NORCO 5/325 MG PO PRN (22:17)
[2024-07-19 05:02] LABS: Absolute Neutrophil Ct (ANC) 2.74 x10^3/uL (1.56-6.13); BASOPHIL % 0.8 % (0.1-1.2); Basophil (Absolute #) 0.03 x10^3/uL (0.01-0.08); Eosinophil % 1.3 % (0.7-5.8); Eosinophil (Absolute #) 0.05 x10^3/uL (0.04-0.36); IMMATURE GRAN # 0.01 x10^3u/L (0.001-0.031); IMMATURE GRAN % 0.3 % (0.001-0.429); Lymphocyte (Absolute #) 0.67 x10^3/uL (1.18-3.74); Lymphocytes % 17.7 % (19.3-51.7); Mean Cell Volume 75.2 fL (79.4-94.8); Mean Corpuscular Hgb Concent. 27.9 g/dL (32.2-35.5); Mean Platelet Volume 11.3 fL (9.4-12.3); Monocyte (Absolute #) 0.28 x10^3/uL (0.24-0.86); Monocytes % 7.4 % (4.7-12.5); Neutrophil % 72.5 % (34.0-71.1); Platelet Count 76 x10^3/uL (182-369); Red Blood Count 3.19 x10^6/uL (3.93-5.22); Red Cell Distribution Width 18.8 % (11.7-14.4); White Blood Count 3.8 x10^3/uL (3.98-10.04)
--- NOTE | 2024-07-19 05:07 | PCM.NOTE ---
Date and Time: 07/19/24 0507 Subjective Assessment: is a 74 year old female with a history of type 2 diabetes mellitus, hypertension, hyperlipidemia, and depression who presented to ED 07/18/24 with worsening right hip pain. One week ago, she sustained a ground level fall while walking her dog and was found to have a comminuted, mildly displaced but overall nondisplaced fracture of the right greater trochanter. She was managed nonoperatively under orthopedic follow-up with Dr. Ybarra and had reportedly been doing well at home. Today, while sitting on a barstool, she developed acute exacerbation of right hip pain without any new trauma. She reports severe pain with movement and weight-bearing, resulting in inability to ambulate, even with a walker. She rates her pain 10/10 on a numerical pain scale with radiation to her back and down her right leg. On evaluation, vitals are stable. CT pelvis demonstrates progression of the fracture with new intratrochanteric extension and no evidence of healing or callus formation. Chronic findings include osteopenia, lower lumbar degenerative changes, sigmoid diverticulosis, and arteriosclerotic disease. Plan is to keep her [id number] on the right side. Ortho will be consulted again to reassess the fracture given the new extension and her worsening symptoms. PT/OT will evaluate to help guide safe discharge planning and will initiate pain control. 07/19/24: Met with patient bedside. Endorses improvement in right hip pain, currently rating it as 5 out of 10 on the numerical pain scale. Orthopedic surgery has been consulted, and surgical intervention for the right trochanteric fracture is scheduled for July 20, 2024, per Dr. Gallo. Laboratory results today are notable for pancytopenia, with a hemoglobin level of 6.7 g/dL. The patient will be transfused with two units of LPRBC today, with an additional two units to be held in anticipation of potential need during or after surgery. Given the presence of pancytopenia and anemia, outpatient hematology follow-up will be necessary for further evaluation. Stool occult blood testing will be performed to assess for possible gastrointestinal bleeding as a contributing factor. Additionally, the patient was found to have a low vitamin D level and will be started on daily supplementation. Denies fever,cough, sob, cp, abdominal pain, CHASE, dizziness, N/V/D. - Review of Systems Constitutional: No Symptoms Eyes: No Symptoms Ears, Nose, & Throat: No Symptoms Respiratory: No Symptoms Cardiac: No Symptoms Abdominal/Gastrointestinal: No Symptoms Genitourinary Symptoms: No Symptoms Musculoskeletal: Joint Pain (Right hip pain ) Skin: No Symptoms Neurological: No Symptoms Psychological: No Symptoms Endocrine: No Symptoms Hematologic/Lymphatic: Anemia Immunological/Allergic: No Symptoms Objective Exam General Appearance: no apparent distress Neurologic Exam: alert, oriented x 3, cooperative Skin Exam: normal color Eye Exam: PERRL Ears, Nose, Throat Exam: normal ENT inspection Neck Exam: normal inspection Respiratory Exam: normal breath sounds, lungs clear Cardiovascular Exam: regular rate/rhythm, normal heart sounds Gastrointestinal/Abdomen Exam: soft, normal bowel sounds Extremity Exam: limited range of motion (right hip due to pain) Back Exam: normal inspection Pelvic Exam: deferred Rectal Exam: deferred Objective Data Vital Signs: Vital Signs - 24 hr Temp Pulse Resp BP BP Pulse Ox 07/19/24 04:00 98.1 F 80 17 121/56 93 L 07/18/24 23:50 98.1 F 91 H 16 126/59 95 07/18/24 19:46 99.0 F 96 H 16 151/65 93 L 07/18/24 16:00 98.0 F 88 16 125/57 92 L 07/18/24 14:15 97.3 F 89 16 190/86 94 L 07/18/24 13:02 97 07/18/24 13:00 165/84 94 L 07/18/24 12:30 161/69 94 L 07/18/24 12:00 168/77 97 07/18/24 11:00 85 18 147/70 96 07/18/24 10:30 141/66 95 07/18/24 10:14 97.1 F 70 16 140/71 140/71 87 L Pain Assessment - Last Documented Pain Intensity 5 Pain Scale Used [facility] Intake and Output: Intake & Output 07/16/24 07/17/24 07/18/24 07/19/24 11:59 11:59 11:59 11:59 Intake Total 380 Balance 380 Weight 90.5 kg 90.8 kg Lab Results: Lab Results-Last 24 Hours 07/18/24 07/18/24 07/18/24 Range/Units 15:00 15:00 15:00 WBC 3.8 L (3.98-10.04) x10^3/uL RBC 3.28 L (3.93-5.22) x10^6/uL Hgb 7.2 L (11.2-15.7) g/dL Hct 24.4 L (34.1-44.9) % MCV 74.4 L (79.4-94.8) fL MCH 22.0 L (25.6-32.2) pg MCHC 29.5 L (32.2-35.5) g/dL RDW 18.7 H (11.7-14.4) % Plt Count 76 L (182-369) x10^3/uL MPV 10.6 (9.4-12.3) fL Gran % 80.0 H (34.0-71.1) % Immature Gran % (Auto) 0.3 (0.001-0.429) % Nucleat RBC Rel Count 0.0 (0.00-0.2) % Eos # (Auto) 0.01 L (0.04-0.36) x10^3/uL Immature Gran # (Auto) 0.01 (0.001-0.031) x10^3u/L Absolute Lymphs (auto) 0.52 L (1.18-3.74) x10^3/uL Absolute Monos (auto) 0.18 L (0.24-0.86) x10^3/uL Absolute Nucleated RBC 0.00 (0.00-0.012) x10^3u/L Lymphocytes % 13.8 L (19.3-51.7) % Monocytes % 4.8 (4.7-12.5) % Eosinophils % 0.3 L (0.7-5.8) % Basophils % 0.8 (0.1-1.2) % Absolute Granulocytes 3.01 (1.56-6.13) x10^3/uL Basophils # 0.03 (0.01-0.08) x10^3/uL Sodium 141 (135-145) mmol/L Potassium 3.9 (3.5-5.1) mmol/L Chloride 105 (98-107) mmol/L Carbon Dioxide 27 (22-30) mmol/L Anion Gap 14.0 (5-15) MEQ/L BUN 14 (7-17) mg/dL Creatinine 0.61 (0.52-1.04) mg/dL Estimated GFR 94.3 ML/MIN Glucose 130 H (74-106) mg/dL POC Glucometer (74 to 106) mg/dL Calcium 9.2 (8.4-10.2) mg/dL Iron (37-170) ug/dL TIBC (265-462) ug/dL Iron Saturation (20-39) % Ferritin (11.1-264) ng/mL Total Bilirubin 0.80 (0.2-1.3) mg/dL AST 32 (14-36) U/L ALT 30 (0-35) U/L Alkaline Phosphatase 111 (38-126) U/L Serum Total Protein 6.6 (6.3-8.2) g/dL Albumin 4.1 (3.5-5.0) g/dL Vitamin B12 (239-931) pg/mL 25-OH Vitamin D Total 25.0 L (30-100) ng/mL Folic Acid (2.76 - >20) ng/mL Slides for Path Review YES 07/18/24 07/18/24 07/18/24 Range/Units 15:00 15:00 16:06 WBC (3.98-10.04) x10^3/uL RBC (3.93-5.22) x10^6/uL Hgb (11.2-15.7) g/dL Hct (34.1-44.9) % MCV (79.4-94.8) fL MCH (25.6-32.2) pg MCHC (32.2-35.5) g/dL RDW (11.7-14.4) % Plt Count (182-369) x10^3/uL MPV (9.4-12.3) fL Gran % (34.0-71.1) % Immature Gran % (Auto) (0.001-0.429) % Nucleat RBC Rel Count (0.00-0.2) % Eos # (Auto) (0.04-0.36) x10^3/uL Immature Gran # (Auto) (0.001-0.031) x10^3u/L Absolute Lymphs (auto) (1.18-3.74) x10^3/uL Absolute Monos (auto) (0.24-0.86) x10^3/uL Absolute Nucleated RBC (0.00-0.012) x10^3u/L Lymphocytes % (19.3-51.7) % Monocytes % (4.7-12.5) % Eosinophils % (0.7-5.8) % Basophils % (0.1-1.2) % Absolute Granulocytes (1.56-6.13) x10^3/uL Basophils # (0.01-0.08) x10^3/uL Sodium (135-145) mmol/L Potassium (3.5-5.1) mmol/L Chloride (98-107) mmol/L Carbon Dioxide (22-30) mmol/L Anion Gap (5-15) MEQ/L BUN (7-17) mg/dL Creatinine (0.52-1.04) mg/dL Estimated GFR ML/MIN Glucose (74-106) mg/dL POC Glucometer 122 H (74 to 106) mg/dL Calcium (8.4-10.2) mg/dL Iron 34 L (37-170) ug/dL TIBC 476 H (265-462) ug/dL Iron Saturation 7 L (20-39) % Ferritin 7.42 L (11.1-264) ng/mL Total Bilirubin (0.2-1.3) mg/dL AST (14-36) U/L ALT (0-35) U/L Alkaline Phosphatase (38-126) U/L Serum Total Protein (6.3-8.2) g/dL Albumin (3.5-5.0) g/dL Vitamin B12 > 1000 H (239-931) pg/mL 25-OH Vitamin D Total (30-100) ng/mL Folic Acid 11.8 (2.76 - >20) ng/mL Slides for Path Review 07/18/24 Range/Units 20:48 WBC (3.98-10.04) x10^3/uL RBC (3.93-5.22) x10^6/uL Hgb (11.2-15.7) g/dL Hct (34.1-44.9) % MCV (79.4-94.8) fL MCH (25.6-32.2) pg MCHC (32.2-35.5) g/dL RDW (11.7-14.4) % Plt Count (182-369) x10^3/uL MPV (9.4-12.3) fL Gran % (34.0-71.1) % Immature Gran % (Auto) (0.001-0.429) % Nucleat RBC Rel Count (0.00-0.2) % Eos # (Auto) (0.04-0.36) x10^3/uL Immature Gran # (Auto) (0.001-0.031) x10^3u/L Absolute Lymphs (auto) (1.18-3.74) x10^3/uL Absolute Monos (auto) (0.24-0.86) x10^3/uL Absolute Nucleated RBC (0.00-0.012) x10^3u/L Lymphocytes % (19.3-51.7) % Monocytes % (4.7-12.5) % Eosinophils % (0.7-5.8) % Basophils % (0.1-1.2) % Absolute Granulocytes (1.56-6.13) x10^3/uL Basophils # (0.01-0.08) x10^3/uL Sodium (135-145) mmol/L Potassium (3.5-5.1) mmol/L Chloride (98-107) mmol/L Carbon Dioxide (22-30) mmol/L Anion Gap (5-15) MEQ/L BUN (7-17) mg/dL Creatinine (0.52-1.04) mg/dL Estimated GFR ML/MIN Glucose (74-106) mg/dL POC Glucometer 199 H (74 to 106) mg/dL Calcium (8.4-10.2) mg/dL Iron (37-170) ug/dL TIBC (265-462) ug/dL Iron Saturation (20-39) % Ferritin (11.1-264) ng/mL Total Bilirubin (0.2-1.3) mg/dL AST (14-36) U/L ALT (0-35) U/L Alkaline Phosphatase (38-126) U/L Serum Total Protein (6.3-8.2) g/dL Albumin (3.5-5.0) g/dL Vitamin B12 (239-931) pg/mL 25-OH Vitamin D Total (30-100) ng/mL Folic Acid (2.76 - >20) ng/mL Slides for Path Review Radiology Exams: Radiology Procedures Category Date Time Status PELVIS WITHOUT CONTRAST [CT] Stat Exams 07/18/24 11:16 Completed Medications: Medications Generic Name Dose Route Start Last Admin Trade Name Freq PRN Reason Stop Dose Admin Acetaminophen 650 mg 07/18/24 14:37 Acetaminophen 325 Mg Tablet PO 08/17/24 14:36 Q4H PRN PRN PAIN, FEVER, HEADACHE Hydrocodone Bitart/Acetaminophen 1 tab 07/18/24 14:37 07/19/24 02:19 Hydrocodone/Apap 5/325 1 Tab Tablet PO 07/23/24 14:36 1 tab Q4H PRN PRN Administration PAIN Benazepril HCl 20 mg 07/19/24 10:00 Benazepril Hcl 10 Mg Tablet PO 08/18/24 09:59 DAILY CAROLA Escitalopram Oxalate 10 mg 07/19/24 10:00 Escitalopram Oxalate 10 Mg Tablet PO 08/18/24 09:59 DAILY CAROLA Hydrochlorothiazide 25 mg 07/19/24 10:00 Hydrochlorothiazide 25 Mg Tablet PO 08/18/24 09:59 DAILY CAROLA Hydromorphone HCl 0.5 mg 07/18/24 14:37 07/19/24 00:18 Hydromorphone 1 Mg/1ml Inj IV 07/23/24 14:36 0.5 mg Q4H PRN PRN Administration PAIN Insulin Human Lispro 0 unit 07/18/24 14:37 Insulin Lispro 1 Unit SQ 08/17/24 14:36 UD PRN HYPERGLYCEMIA Magnesium Oxide 200 mg 07/19/24 10:00 Magnesium Oxide 400 Mg Tablet PO 08/18/24 09:59 DAILY CAROLA Miscellaneous Information 1 each 07/18/24 15:15 Medication Intervention 1 Each Each 08/17/24 15:14 .RN TO CHECK CAROLA Nitroglycerin 0.4 mg 07/18/24 14:41 Nitroglycerin 0.4 Mg Tablet Bottle SL 08/17/24 14:40 Q12H PRN PRN CHEST PAIN Ondansetron HCl 4 mg 07/18/24 14:37 Ondansetron Hcl 4 Mg/2 Ml Vial IV 08/17/24 14:36 Q6H PRN PRN NAUSEA/VOMITING Pantoprazole Sodium 40 mg 07/19/24 10:00 Protonix (Pantoprazole) 40 Mg Tablet PO 08/18/24 09:59 DAILY CAROLA Discontinued Medications Generic Name Dose Route Start Last Admin Trade Name Osmani PRN Reason Stop Dose Admin Non-Formulary Medication 1 tab 07/19/24 10:00 Benazepril/Hydrochlorothiazide [Lotensin Hct 20-25 Mg Tablet] PO 08/18/24 09:59 DAILY CAROLA Multi-Disciplinary Progress Notes: Multi-Disciplinary Progress Notes 07/18/24 14:52 Physical Therapy Note by Jody(Koby#[id number]),Carol SPOKE W/ NURSING AND PT. RE: STATUS. ORTHO CONSULT ORDERED AND PT. AWAITING ORDERS FOR PN MEDS. PROVIDED PT. W/ CP AND LET HER KNOW WE WOULD NOT EVAL UNTIL AFTER UPDATED ORTHO CONSULT ON R FEMUR FX. WILL MONITOR. Initialized on 07/18/24 14:52 - END OF NOTE Assessment/Plan (1) Trochanteric fracture of femur Current Visit: Yes Status: Acute Assessment & Plan: -CT pelvis shows the same fracture but with new intratrochanteric extension -Ortho consulted appreciate recs -Pain control [place]/dilaudid -vitamin D level/calcium levels -PT/OT -Romeo 07/19/24: -Discussed case with Dr. Gallo and surgical intervention for the right trochanteric fracture is scheduled for July 20, 2024, the patient will be transfused with two units of leukocyte-poor packed red blood cells today, with an additional two units to be held in anticipation of potential need during or after surgery. Code(s): S72.109A - UNSP TROCHANTERIC FRACTURE OF UNSP FEMUR, INIT FOR CLOS FX Pancytopenia -CBC reviewed -Hgb at 6.7- will transfuse with 2 units LPRBC with CBC s/p transfusion - as stated above 2 units to be held for potential need during/after surgery -Occult stools -Iron panel reviewed with iron sat at 7%/ ferritin level at 7.42- will start on ferrous sulfate -Will refer to hematology as OP for further evaluation and iron transfusions Vitamin D deficiency -Vitamin D level reviewed at 25- will start supplementation at 1000 units daily- will need rechecked in 8 weeks for treatment response (2) HLD (hyperlipidemia) Current Visit: Yes Status: Acute Assessment & Plan: -Patient does not appear to be on statin- continue OP regimen Code(s): E78.5 - HYPERLIPIDEMIA, UNSPECIFIED (3) Depression Current Visit: Yes Status: Acute Assessment & Plan: -Resume Lexapro Code(s): F32.A - DEPRESSION, UNSPECIFIED (4) Essential (primary) hypertension Current Visit: No Status: Acute Assessment & Plan: -Continue home med benazepril/hctz Code(s): I10 - ESSENTIAL (PRIMARY) HYPERTENSION (5) Type 2 diabetes mellitus without complications Current Visit: No Status: Chronic Qualifiers: Diabetes mellitus intermediate insulin use: without intermediate use Qualified Code(s): E11.9 - Type 2 diabetes mellitus without complications Assessment & Plan: -ADA diet -SSI -A1c VTE: hold for ?sx - scd Dispo: 1-2 days Code status: Full code Code(s): S72.109A - UNSP TROCHANTERIC FRACTURE OF UNSP FEMUR, INIT FOR CLOS FX (2) HLD (hyperlipidemia) Current Visit: Yes Status: Acute Code(s): E78.5 - HYPERLIPIDEMIA, UNSPECIFIED (3) Depression Current Visit: Yes Status: Acute Code(s): F32.A - DEPRESSION, UNSPECIFIED (4) Essential (primary) hypertension Current Visit: No Status: Acute Code(s): I10 - ESSENTIAL (PRIMARY) HYPERTENSION (5) Type 2 diabetes mellitus without complications Current Visit: No Status: Chronic Qualifiers: Diabetes mellitus intermediate accountant insulin use: without intermediate use Qualified Code(s): E11.9 - Type 2 diabetes mellitus without complications Code(s): E11.9 - TYPE 2 DIABETES MELLITUS WITHOUT COMPLICATIONS (6) Pancytopenia Current Visit: Yes Status: Acute Code(s): D61.818 - OTHER PANCYTOPENIA (7) Iron deficiency anemia Current Visit: Yes Status: Acute Code(s): D50.9 - IRON DEFICIENCY ANEMIA, UNSPECIFIED (8) Vitamin D deficiency Current Visit: Yes Status: Acute Code(s): E55.9 - VITAMIN D DEFICIENCY, UNSPECIFIED
[2024-07-19 05:31] LABS: Hemoglobin 6.7 g/dL (11.2-15.7)
[2024-07-19 05:36] LABS: ALBUMIN 3.6 g/dL (3.5-5.0)
[2024-07-19 05:37] LABS: BILIRUBIN,TOTAL 0.6 mg/dL (0.2-1.3); Calcium 8.7 mg/dL (8.4-10.2); Creatinine 1 0.62 mg/dL (0.52-1.04)
[2024-07-19 05:41] LABS: Total Protein 5.9 g/dL (6.3-8.2)
[2024-07-19 06:45] LABS: Slide Review 1 YES
[2024-07-19 07:16] LABS: ABO TYPING O; Antibody Screen NEGATIVE (NEGATIVE); RH TYPING NEGATIVE
[2024-07-19 07:17] LABS: CROSS MATCH (PRBC) COMPATIBLE (COMPATIBLE)
[2024-07-19 07:53] LABS: RETICULOCYTE % 3.1 % (0.5-1.7); RETICULOCYTE HEMOGLOBIN 22.3 pg (28-36.6)
[2024-07-19] MEDS ORDERED: Sodium Chloride 0.9% 500 ML 500 ML IV ONE ×2 (08:22→12:38)
[2024-07-19 09:06] LABS: CROSS MATCH (PRBC) COMPATIBLE (COMPATIBLE)
[2024-07-19] MEDS: Protonix 40MG Tablet PO SCH (09:21)
[2024-07-19] MEDS: Lotensin PO SCH (09:21)
[2024-07-19] MEDS: MAG-OX 400 PO SCH (09:21)
[2024-07-19] MEDS: hydroDIURIL 25 MG PO SCH (09:21)
[2024-07-19] MEDS: FEOSOL 325 MG PO SCH (09:21)
[2024-07-19] MEDS: VITAMIN D PO SCH (09:21)
[2024-07-19] MEDS: Lexapro PO SCH (09:21)
[2024-07-19] MEDS ORDERED: NON-FORMULARY ITEM (Potassium Gluconate [Potassium Gluconate] 500 MG Tablet) PO SCH (10:00)
[2024-07-19] MEDS ORDERED: BENAZEPRIL PO SCH (10:00)
[2024-07-19] MEDS ORDERED: HYDROCHLOROTHIAZIDE PO SCH (10:00)
[2024-07-19] MEDS ORDERED: [UNRECOGNIZED DRUG - OTHER] PO SCH (10:00)
[2024-07-19] MEDS ORDERED: MAGNESIUM OXIDE 200 MG PO SCH (10:00)
[2024-07-19 12:32] LABS: PROTIME 10.9 SECONDS (9.4-12.5); PTT 21.4 SECONDS (25.1-36.5)
[2024-07-19 17:28] LABS: Hematocrit 30.7 % (34.1-44.9)
[2024-07-19 17:31] LABS: CROSS MATCH (PRBC) COMPATIBLE (COMPATIBLE)
[2024-07-19 17:33] LABS: CROSS MATCH (PRBC) COMPATIBLE (COMPATIBLE)
[2024-07-19 17:39] LABS: Hemoglobin 9.2 g/dL (11.2-15.7)
[2024-07-20 04:55] LABS: Absolute Neutrophil Ct (ANC) 2.89 x10^3/uL (1.56-6.13); BASOPHIL % 0.5 % (0.1-1.2); Basophil (Absolute #) 0.02 x10^3/uL (0.01-0.08); Eosinophil (Absolute #) 0.04 x10^3/uL (0.04-0.36); Hematocrit 28.4 % (34.1-44.9); Hemoglobin 8.7 g/dL (11.2-15.7); IMMATURE GRAN # 0.01 x10^3u/L (0.001-0.031); IMMATURE GRAN % 0.2 % (0.001-0.429); Lymphocyte (Absolute #) 0.74 x10^3/uL (1.18-3.74); Lymphocytes % 18.5 % (19.3-51.7); Mean Cell Volume 74.9 fL (79.4-94.8); Mean Corpuscular Hgb Concent. 30.6 g/dL (32.2-35.5); Mean Platelet Volume 10.8 fL (9.4-12.3); Monocyte (Absolute #) 0.31 x10^3/uL (0.24-0.86); Monocytes % 7.7 % (4.7-12.5); Neutrophil % 72.1 % (34.0-71.1); Platelet Count 76 x10^3/uL (182-369); Red Blood Count 3.79 x10^6/uL (3.93-5.22)
[2024-07-20 05:19] LABS: ALBUMIN 3.6 g/dL (3.5-5.0); ANION GAP 11.3 MEQ/L (5-15); BILIRUBIN,TOTAL 1.2 mg/dL (0.2-1.3); Calcium 9.1 mg/dL (8.4-10.2); Creatinine 1 0.56 mg/dL (0.52-1.04); EST GLOMERULAR FILTRATION RATE 96.3 ML/MIN; Potassium 3.5 mmol/L (3.5-5.1); Total Protein 5.9 g/dL (6.3-8.2)
--- NOTE | 2024-07-20 05:30 | PCM.NOTE ---
Date and Time: 07/20/24 0529 Subjective Assessment: is a 74 year old female with a history of type 2 diabetes mellitus, hypertension, hyperlipidemia, and depression who presented to ED 07/18/24 with worsening right hip pain. One week ago, she sustained a ground level fall while walking her dog and was found to have a comminuted, mildly displaced but overall nondisplaced fracture of the right greater trochanter. She was managed nonoperatively under orthopedic follow-up with Dr. Ybarra and had reportedly been doing well at home. Today, while sitting on a barstool, she developed acute exacerbation of right hip pain without any new trauma. She reports severe pain with movement and weight-bearing, resulting in inability to ambulate, even with a walker. She rates her pain 10/10 on a numerical pain scale with radiation to her back and down her right leg. On evaluation, vitals are stable. CT pelvis demonstrates progression of the fracture with new intratrochanteric extension and no evidence of healing or callus formation. Chronic findings include osteopenia, lower lumbar degenerative changes, sigmoid diverticulosis, and arteriosclerotic disease. Plan is to keep her [id number] on the right side. Ortho will be consulted again to reassess the fracture given the new extension and her worsening symptoms. PT/OT will evaluate to help guide safe discharge planning and will initiate pain control. 07/19/24: Met with patient bedside. Endorses improvement in right hip pain, currently rating it as 5 out of 10 on the numerical pain scale. Orthopedic surgery has been consulted, and surgical intervention for the right trochanteric fracture is scheduled for July 20, 2024, per Dr. Gallo. Laboratory results today are notable for pancytopenia, with a hemoglobin level of 6.7 g/dL. The patient will be transfused with two units of LPRBC today, with an additional two units to be held in anticipation of potential need during or after surgery. Given the presence of pancytopenia and anemia, outpatient hematology follow-up will be necessary for further evaluation. Stool occult blood testing will be performed to assess for possible gastrointestinal bleeding as a contributing factor. Additionally, the patient was found to have a low vitamin D level and will be started on daily supplementation. Denies fever,cough, sob, cp, abdominal pain, CHASE, dizziness, N/V/D. 07/20/24: Met with patient bedside. Pain remains improved rating 5/10 on numerical pain scale. Surgery today. Hemoglobin stable at 8.7 this morning. Plan for pain control and PT eval s/p surgery when able. Patient does live home alone and may need rehab. - Review of Systems Constitutional: No Symptoms Eyes: No Symptoms Ears, Nose, & Throat: No Symptoms Respiratory: No Symptoms Cardiac: No Symptoms Abdominal/Gastrointestinal: No Symptoms Genitourinary Symptoms: No Symptoms Musculoskeletal: Joint Pain (right hip) Skin: No Symptoms Neurological: No Symptoms Psychological: No Symptoms Endocrine: No Symptoms Hematologic/Lymphatic: No Symptoms Immunological/Allergic: No Symptoms Objective Exam General Appearance: no apparent distress Neurologic Exam: alert, oriented x 3, cooperative Skin Exam: normal color Eye Exam: PERRL Ears, Nose, Throat Exam: normal ENT inspection Neck Exam: normal inspection Respiratory Exam: normal breath sounds, lungs clear Cardiovascular Exam: regular rate/rhythm, normal heart sounds Gastrointestinal/Abdomen Exam: soft, normal bowel sounds Extremity Exam: limited range of motion (right hip) Back Exam: normal inspection Pelvic Exam: deferred Rectal Exam: deferred Objective Data Vital Signs: Vital Signs - 24 hr Temp Pulse Resp BP Pulse Ox 07/20/24 04:00 98.3 F 71 18 131/59 95 07/20/24 00:00 99.0 F 83 18 158/71 95 07/19/24 20:00 98.7 F 86 18 143/61 99 07/19/24 16:00 98.8 F 88 22 127/58 91 L 07/19/24 12:00 99.3 F 89 22 133/63 91 L 07/19/24 08:00 99.2 F 86 20 151/67 91 L Pain Assessment - Last Documented Pain Intensity 5 Pain Scale Used 0-10 Pain Scale Intake and Output: Intake & Output 07/17/24 07/18/24 07/19/24 07/20/24 11:59 11:59 11:59 11:59 Intake Total 620 2180 Output Total 800 1300 Balance -180 880 Weight 90.5 kg 90.8 kg Lab Results: Lab Results-Last 24 Hours 07/19/24 07/19/24 07/19/24 Range/Units 04:57 04:57 04:57 WBC 3.8 L (3.98-10.04) x10^3/uL RBC 3.19 L (3.93-5.22) x10^6/uL Hgb 6.7 L* (11.2-15.7) g/dL Hct 24.0 L (34.1-44.9) % MCV 75.2 L (79.4-94.8) fL MCH 21.0 L (25.6-32.2) pg MCHC 27.9 L (32.2-35.5) g/dL RDW 18.8 H (11.7-14.4) % Plt Count 76 L (182-369) x10^3/uL MPV 11.3 (9.4-12.3) fL Gran % 72.5 H (34.0-71.1) % Immature Gran % (Auto) 0.3 (0.001-0.429) % Reticulocyte % (Auto) 3.1 H (0.5-1.7) % Nucleat RBC Rel Count 0.0 (0.00-0.2) % Eos # (Auto) 0.05 (0.04-0.36) x10^3/uL Immature Gran # (Auto) 0.01 (0.001-0.031) x10^3u/L Absolute Lymphs (auto) 0.67 L (1.18-3.74) x10^3/uL Absolute Monos (auto) 0.28 (0.24-0.86) x10^3/uL Absolute Nucleated RBC 0.00 (0.00-0.012) x10^3u/L Lymphocytes % 17.7 L (19.3-51.7) % Monocytes % 7.4 (4.7-12.5) % Eosinophils % 1.3 (0.7-5.8) % Basophils % 0.8 (0.1-1.2) % Absolute Granulocytes 2.74 (1.56-6.13) x10^3/uL Basophils # 0.03 (0.01-0.08) x10^3/uL Absolute Retic 0.0979 H (0.0164-0.0776) x10^6/uL Retic Hgb Content 22.3 L (28-36.6) pg PT (9.4-12.5) SECONDS INR (0.8-3.0) APTT (25.1-36.5) SECONDS Sodium 139 (135-145) mmol/L Potassium 4.0 (3.5-5.1) mmol/L Chloride 104 (98-107) mmol/L Carbon Dioxide 28 (22-30) mmol/L Anion Gap 11.0 (5-15) MEQ/L BUN 13 (7-17) mg/dL Creatinine 0.62 (0.52-1.04) mg/dL Estimated GFR 94.0 ML/MIN Glucose 145 H (74-106) mg/dL POC Glucometer (74 to 106) mg/dL Calcium 8.7 (8.4-10.2) mg/dL Total Bilirubin 0.60 (0.2-1.3) mg/dL AST 27 (14-36) U/L ALT 24 (0-35) U/L Alkaline Phosphatase 104 (38-126) U/L Serum Total Protein 5.9 L (6.3-8.2) g/dL Albumin 3.6 (3.5-5.0) g/dL Slides for Path Review YES ABO Group Rh Factor Antibody Screen (NEGATIVE) Crossmatch (COMPATIBLE) 07/19/24 07/19/24 07/19/24 Range/Units 06:04 06:04 06:04 WBC (3.98-10.04) x10^3/uL RBC (3.93-5.22) x10^6/uL Hgb (11.2-15.7) g/dL Hct (34.1-44.9) % MCV (79.4-94.8) fL MCH (25.6-32.2) pg MCHC (32.2-35.5) g/dL RDW (11.7-14.4) % Plt Count (182-369) x10^3/uL MPV (9.4-12.3) fL Gran % (34.0-71.1) % Immature Gran % (Auto) (0.001-0.429) % Reticulocyte % (Auto) (0.5-1.7) % Nucleat RBC Rel Count (0.00-0.2) % Eos # (Auto) (0.04-0.36) x10^3/uL Immature Gran # (Auto) (0.001-0.031) x10^3u/L Absolute Lymphs (auto) (1.18-3.74) x10^3/uL Absolute Monos (auto) (0.24-0.86) x10^3/uL Absolute Nucleated RBC (0.00-0.012) x10^3u/L Lymphocytes % (19.3-51.7) % Monocytes % (4.7-12.5) % Eosinophils % (0.7-5.8) % Basophils % (0.1-1.2) % Absolute Granulocytes (1.56-6.13) x10^3/uL Basophils # (0.01-0.08) x10^3/uL Absolute Retic (0.0164-0.0776) x10^6/uL Retic Hgb Content (28-36.6) pg PT (9.4-12.5) SECONDS INR (0.8-3.0) APTT (25.1-36.5) SECONDS Sodium (135-145) mmol/L Potassium (3.5-5.1) mmol/L Chloride (98-107) mmol/L Carbon Dioxide (22-30) mmol/L Anion Gap (5-15) MEQ/L BUN (7-17) mg/dL Creatinine (0.52-1.04) mg/dL Estimated GFR ML/MIN Glucose (74-106) mg/dL POC Glucometer (74 to 106) mg/dL Calcium (8.4-10.2) mg/dL Total Bilirubin (0.2-1.3) mg/dL AST (14-36) U/L ALT (0-35) U/L Alkaline Phosphatase (38-126) U/L Serum Total Protein (6.3-8.2) g/dL Albumin (3.5-5.0) g/dL Slides for Path Review ABO Group O Rh Factor NEGATIVE Antibody Screen NEGATIVE (NEGATIVE) Crossmatch COMPATIBLE COMPATIBLE COMPATIBLE (COMPATIBLE) 07/19/24 07/19/24 07/19/24 Range/Units 06:04 07:18 11:14 WBC (3.98-10.04) x10^3/uL RBC (3.93-5.22) x10^6/uL Hgb (11.2-15.7) g/dL Hct (34.1-44.9) % MCV (79.4-94.8) fL MCH (25.6-32.2) pg MCHC (32.2-35.5) g/dL RDW (11.7-14.4) % Plt Count (182-369) x10^3/uL MPV (9.4-12.3) fL Gran % (34.0-71.1) % Immature Gran % (Auto) (0.001-0.429) % Reticulocyte % (Auto) (0.5-1.7) % Nucleat RBC Rel Count (0.00-0.2) % Eos # (Auto) (0.04-0.36) x10^3/uL Immature Gran # (Auto) (0.001-0.031) x10^3u/L Absolute Lymphs (auto) (1.18-3.74) x10^3/uL Absolute Monos (auto) (0.24-0.86) x10^3/uL Absolute Nucleated RBC (0.00-0.012) x10^3u/L Lymphocytes % (19.3-51.7) % Monocytes % (4.7-12.5) % Eosinophils % (0.7-5.8) % Basophils % (0.1-1.2) % Absolute Granulocytes (1.56-6.13) x10^3/uL Basophils # (0.01-0.08) x10^3/uL Absolute Retic (0.0164-0.0776) x10^6/uL Retic Hgb Content (28-36.6) pg PT 10.9 (9.4-12.5) SECONDS INR 1.00 (0.8-3.0) APTT 21.4 L (25.1-36.5) SECONDS Sodium (135-145) mmol/L Potassium (3.5-5.1) mmol/L Chloride (98-107) mmol/L Carbon Dioxide (22-30) mmol/L Anion Gap (5-15) MEQ/L BUN (7-17) mg/dL Creatinine (0.52-1.04) mg/dL Estimated GFR ML/MIN Glucose (74-106) mg/dL POC Glucometer 146 H (74 to 106) mg/dL Calcium (8.4-10.2) mg/dL Total Bilirubin (0.2-1.3) mg/dL AST (14-36) U/L ALT (0-35) U/L Alkaline Phosphatase (38-126) U/L Serum Total Protein (6.3-8.2) g/dL Albumin (3.5-5.0) g/dL Slides for Path Review ABO Group Rh Factor Antibody Screen (NEGATIVE) Crossmatch COMPATIBLE (COMPATIBLE) 07/19/24 07/19/24 07/19/24 Range/Units 11:43 16:08 17:20 WBC (3.98-10.04) x10^3/uL RBC (3.93-5.22) x10^6/uL Hgb 9.2 L D (11.2-15.7) g/dL Hct 30.7 L (34.1-44.9) % MCV (79.4-94.8) fL MCH (25.6-32.2) pg MCHC (32.2-35.5) g/dL RDW (11.7-14.4) % Plt Count (182-369) x10^3/uL MPV (9.4-12.3) fL Gran % (34.0-71.1) % Immature Gran % (Auto) (0.001-0.429) % Reticulocyte % (Auto) (0.5-1.7) % Nucleat RBC Rel Count (0.00-0.2) % Eos # (Auto) (0.04-0.36) x10^3/uL Immature Gran # (Auto) (0.001-0.031) x10^3u/L Absolute Lymphs (auto) (1.18-3.74) x10^3/uL Absolute Monos (auto) (0.24-0.86) x10^3/uL Absolute Nucleated RBC (0.00-0.012) x10^3u/L Lymphocytes % (19.3-51.7) % Monocytes % (4.7-12.5) % Eosinophils % (0.7-5.8) % Basophils % (0.1-1.2) % Absolute Granulocytes (1.56-6.13) x10^3/uL Basophils # (0.01-0.08) x10^3/uL Absolute Retic (0.0164-0.0776) x10^6/uL Retic Hgb Content (28-36.6) pg PT (9.4-12.5) SECONDS INR (0.8-3.0) APTT (25.1-36.5) SECONDS Sodium (135-145) mmol/L Potassium (3.5-5.1) mmol/L Chloride (98-107) mmol/L Carbon Dioxide (22-30) mmol/L Anion Gap (5-15) MEQ/L BUN (7-17) mg/dL Creatinine (0.52-1.04) mg/dL Estimated GFR ML/MIN Glucose (74-106) mg/dL POC Glucometer 164 H 177 H (74 to 106) mg/dL Calcium (8.4-10.2) mg/dL Total Bilirubin (0.2-1.3) mg/dL AST (14-36) U/L ALT (0-35) U/L Alkaline Phosphatase (38-126) U/L Serum Total Protein (6.3-8.2) g/dL Albumin (3.5-5.0) g/dL Slides for Path Review ABO Group Rh Factor Antibody Screen (NEGATIVE) Crossmatch (COMPATIBLE) 07/19/24 07/20/24 07/20/24 Range/Units 20:49 04:48 04:48 WBC 4.0 (3.98-10.04) x10^3/uL RBC 3.79 L (3.93-5.22) x10^6/uL Hgb 8.7 L (11.2-15.7) g/dL Hct 28.4 L (34.1-44.9) % MCV 74.9 L (79.4-94.8) fL MCH 23.0 L (25.6-32.2) pg MCHC 30.6 L (32.2-35.5) g/dL RDW 19.0 H (11.7-14.4) % Plt Count 76 L (182-369) x10^3/uL MPV 10.8 (9.4-12.3) fL Gran % 72.1 H (34.0-71.1) % Immature Gran % (Auto) 0.2 (0.001-0.429) % Reticulocyte % (Auto) (0.5-1.7) % Nucleat RBC Rel Count 0.0 (0.00-0.2) % Eos # (Auto) 0.04 (0.04-0.36) x10^3/uL Immature Gran # (Auto) 0.01 (0.001-0.031) x10^3u/L Absolute Lymphs (auto) 0.74 L (1.18-3.74) x10^3/uL Absolute Monos (auto) 0.31 (0.24-0.86) x10^3/uL Absolute Nucleated RBC 0.00 (0.00-0.012) x10^3u/L Lymphocytes % 18.5 L (19.3-51.7) % Monocytes % 7.7 (4.7-12.5) % Eosinophils % 1.0 (0.7-5.8) % Basophils % 0.5 (0.1-1.2) % Absolute Granulocytes 2.89 (1.56-6.13) x10^3/uL Basophils # 0.02 (0.01-0.08) x10^3/uL Absolute Retic (0.0164-0.0776) x10^6/uL Retic Hgb Content (28-36.6) pg PT (9.4-12.5) SECONDS INR (0.8-3.0) APTT (25.1-36.5) SECONDS Sodium 140 (135-145) mmol/L Potassium 3.5 (3.5-5.1) mmol/L Chloride 103 (98-107) mmol/L Carbon Dioxide 29 (22-30) mmol/L Anion Gap 11.3 (5-15) MEQ/L BUN 12 (7-17) mg/dL Creatinine 0.56 (0.52-1.04) mg/dL Estimated GFR 96.3 ML/MIN Glucose 146 H (74-106) mg/dL POC Glucometer 180 H (74 to 106) mg/dL Calcium 9.1 (8.4-10.2) mg/dL Total Bilirubin 1.20 (0.2-1.3) mg/dL AST 28 (14-36) U/L ALT 23 (0-35) U/L Alkaline Phosphatase 113 (38-126) U/L Serum Total Protein 5.9 L (6.3-8.2) g/dL Albumin 3.6 (3.5-5.0) g/dL Slides for Path Review ABO Group Rh Factor Antibody Screen (NEGATIVE) Crossmatch (COMPATIBLE) Radiology Exams: Radiology Procedures Category Date Time Status PELVIS WITHOUT CONTRAST [CT] Stat Exams 07/18/24 11:16 Completed Medications: Medications Generic Name Dose Route Start Last Admin Trade Name Freq PRN Reason Stop Dose Admin Acetaminophen 650 mg 07/18/24 14:37 Acetaminophen 325 Mg Tablet PO 08/17/24 14:36 Q4H PRN PRN PAIN, FEVER, HEADACHE Acetaminophen 1,000 mg 07/20/24 06:00 Acetaminophen 500 Mg Tablet PO 07/20/24 06:01 2HRPRIOR ONE Hydrocodone Bitart/Acetaminophen 1 tab 07/18/24 14:37 07/20/24 02:59 Hydrocodone/Apap 5/325 1 Tab Tablet PO 07/23/24 14:36 1 tab Q4H PRN PRN Administration PAIN Benazepril HCl 20 mg 07/19/24 10:00 07/19/24 09:21 Benazepril Hcl 10 Mg Tablet PO 08/18/24 09:59 20 mg DAILY CAROLA Administration Celecoxib 200 mg 07/20/24 06:00 Celecoxib 100 Mg Capsule PO 07/20/24 06:01 2HRPRIOR ONE Cholecalciferol 1,000 unit 07/19/24 10:00 07/19/24 09:21 Cholecalciferol (Vitamin D3) 1000 Unit Tablet PO 08/18/24 09:59 1,000 unit DAILY CAROLA Administration Dexamethasone 8 mg 07/20/24 06:00 Dexamethasone 4 Mg Tablet PO 07/20/24 06:01 2HRPRIOR ONE Escitalopram Oxalate 10 mg 07/19/24 10:00 07/19/24 09:21 Escitalopram Oxalate 10 Mg Tablet PO 08/18/24 09:59 10 mg DAILY CAROLA Administration Ferrous Sulfate 325 mg 07/19/24 10:00 07/19/24 09:21 Ferrous Sulfate 325 Mg Tablet PO 08/18/24 09:59 325 mg DAILY CAROLA Administration Gabapentin 300 mg 07/20/24 06:00 Gabapentin 300 Mg Capsule PO 07/20/24 06:01 2HRPRIOR ONE Hydrochlorothiazide 25 mg 07/19/24 10:00 07/19/24 09:21 Hydrochlorothiazide 25 Mg Tablet PO 08/18/24 09:59 25 mg DAILY CAROLA Administration Hydromorphone HCl 0.5 mg 07/18/24 14:37 07/19/24 00:18 Hydromorphone 1 Mg/1ml Inj IV 07/23/24 14:36 0.5 mg Q4H PRN PRN Administration PAIN Vancomycin HCl 1 gm in 200 mls @ 125 mls/hr 07/20/24 06:00 Vancomycin 1 Gram/200 Ml Bag IV 07/20/24 07:35 ONCE ONE Sodium Chloride 1,000 mls @ 30 mls/hr 07/20/24 06:00 Sodium Chloride 0.9% 1000 Ml IV 08/19/24 05:59 .Q24H CAROLA KVO Insulin Human Lispro 0 unit 07/18/24 14:37 Insulin Lispro 1 Unit SQ 08/17/24 14:36 UD PRN HYPERGLYCEMIA Magnesium Oxide 200 mg 07/19/24 10:00 07/19/24 09:21 Magnesium Oxide 400 Mg Tablet PO 08/18/24 09:59 200 mg DAILY CAROLA Administration Miscellaneous Information 1 each 07/18/24 15:15 Medication Intervention 1 Each Each 08/17/24 15:14 .RN TO CHECK CAROLA Nitroglycerin 0.4 mg 07/18/24 14:41 Nitroglycerin 0.4 Mg Tablet Bottle SL 08/17/24 14:40 Q12H PRN PRN CHEST PAIN Ondansetron HCl 4 mg 07/18/24 14:37 Ondansetron Hcl 4 Mg/2 Ml Vial IV 08/17/24 14:36 Q6H PRN PRN NAUSEA/VOMITING Pantoprazole Sodium 40 mg 07/19/24 10:00 07/19/24 09:21 Protonix (Pantoprazole) 40 Mg Tablet PO 08/18/24 09:59 40 mg DAILY CAROLA Administration Discontinued Medications Generic Name Dose Route Start Last Admin Trade Name Freq PRN Reason Stop Dose Admin Sodium Chloride Confirm 07/19/24 08:22 Sodium Chloride 0.9% 500 Ml Administered 07/19/24 08:23 Dose 500 mls @ ud IV .STK-MED ONE Sodium Chloride Confirm 07/19/24 12:38 Sodium Chloride 0.9% 500 Ml Administered 07/19/24 12:39 Dose 500 mls @ ud IV .STK-MED ONE Non-Formulary Medication 1 tab 07/19/24 10:00 Benazepril/Hydrochlorothiazide [Lotensin Hct 20-25 Mg Tablet] PO 08/18/24 09:59 DAILY CAROLA Multi-Disciplinary Progress Notes: Multi-Disciplinary Progress Notes 07/19/24 12:32 Case Management Note by Angelica Aquino S/W PATIENT AND SHE IS AWARE OF POSSIBLE NEED FOR REHAB AFTER SURGERY. SHE WOULD LIKE TO DISCUSS AT A LATER DATE. WILL TALK WITH SISTER ABOUT IT ALSO. SHE WOULD LIKE TO RETURN TO HOME TO [facility] EVENTUALLY Initialized on 07/19/24 12:32 - END OF NOTE Assessment/Plan (1) Trochanteric fracture of femur Current Visit: Yes Status: Acute Assessment & Plan: -CT pelvis shows the same fracture but with new intratrochanteric extension -Ortho consulted appreciate recs -Pain control [place]/dilaudid -vitamin D level/calcium levels -PT/OT -[place] 07/19/24: -Discussed case with Dr. Gallo and surgical intervention for the right trochanteric fracture is scheduled for July 20, 2024, the patient will be transfused with two units of leukocyte-poor packed red blood cells today, with an additional two units to be held in anticipation of potential need during or after surgery 07/20: -Surgery today -PT/OT when able - may need rehab stay -CMP/CBC reviewed. Code(s): S72.109A - UNSP TROCHANTERIC FRACTURE OF UNSP FEMUR, INIT FOR CLOS FX Pancytopenia -CBC reviewed -Hgb at 6.7- will transfuse with 2 units LPRBC with CBC s/p transfusion - as stated above 2 units to be held for potential need during/after surgery -Occult stools -Iron panel reviewed with iron sat at 7%/ ferritin level at 7.42- will start on ferrous sulfate -Will refer to hematology as OP for further evaluation and iron transfusions 07/20: -Occult stools pending collection -Hgb stable at 8.7 s/p 2 unit LPRBC transfusion 07/19/24 -WBC level improved to 4.0 -Plts reviewed at 76 -Continue monitoring hemoglobin and platelets - tranfuse if plt < 10 or hgb < 7 Vitamin D deficiency -Vitamin D level reviewed at 25- will start supplementation at 1000 units daily- will need rechecked in 8 weeks for treatment response (2) HLD (hyperlipidemia) Current Visit: Yes Status: Acute Assessment & Plan: -Patient does not appear to be on statin- continue OP regimen Code(s): E78.5 - HYPERLIPIDEMIA, UNSPECIFIED (3) Depression Current Visit: Yes Status: Acute Assessment & Plan: -Resume Lexapro Code(s): F32.A - DEPRESSION, UNSPECIFIED (4) Essential (primary) hypertension Current Visit: No Status: Acute Assessment & Plan: -Continue home med benazepril/hctz Code(s): I10 - ESSENTIAL (PRIMARY) HYPERTENSION (5) Type 2 diabetes mellitus without complications Current Visit: No Status: Chronic Qualifiers: Diabetes mellitus penitentiary insulin use: without penitentiary use Qualified Code(s): E11.9 - Type 2 diabetes mellitus without complications Assessment & Plan: -ADA diet -SSI -A1c VTE: hold for ?sx - scd Dispo: 1-2 days Code status: Full code Code(s): S72.109A - UNSP TROCHANTERIC FRACTURE OF UNSP FEMUR, INIT FOR CLOS FX (2) HLD (hyperlipidemia) Current Visit: Yes Status: Acute Code(s): E78.5 - HYPERLIPIDEMIA, UNSPECIFIED (3) Depression Current Visit: Yes Status: Acute Code(s): F32.A - DEPRESSION, UNSPECIFIED (4) Essential (primary) hypertension Current Visit: No Status: Acute Code(s): I10 - ESSENTIAL (PRIMARY) HYPERTENSION (5) Type 2 diabetes mellitus without complications Current Visit: No Status: Chronic Qualifiers: Diabetes mellitus penitentiary insulin use: without superintendent terminal use Qualified Code(s): E11.9 - Type 2 diabetes mellitus without complications Code(s): E11.9 - TYPE 2 DIABETES MELLITUS WITHOUT COMPLICATIONS (6) Pancytopenia Current Visit: Yes Status: Acute Code(s): D61.818 - OTHER PANCYTOPENIA (7) Iron deficiency anemia Current Visit: Yes Status: Acute Code(s): D50.9 - IRON DEFICIENCY ANEMIA, UNSPECIFIED (8) Vitamin D deficiency Current Visit: Yes Status: Acute Code(s): E55.9 - VITAMIN D DEFICIENCY, UNSPECIFIED
[2024-07-20] MEDS: NEURONTIN PO ONE (06:19)
[2024-07-20] MEDS: celeBREX 100 MG PO ONE (06:19)
[2024-07-20] MEDS: TYLENOL EXTRA STRENGTH 500 MG PO ONE (06:20)
[2024-07-20] MEDS: VANCOMYCIN 1 GRAM/200 ML BAG 1 GM/200 ML PIGGYBACK IV ONE (06:20)
[2024-07-20] MEDS: Decadron 4 MG PO ONE (06:20)
[2024-07-20] MEDS: Sodium Chloride 0.9% 1000 ML 1,000 ML IV SCH (06:21)
[2024-07-20 06:42] LABS: Slide Review 1 YES
[2024-07-20] MEDS ORDERED: Zofran 4 MG/2 ML VIAL ONE (08:23)
[2024-07-20] MEDS ORDERED: Xylocaine-Mpf 2% 5 Ml Vial ONE (08:23)
[2024-07-20] MEDS ORDERED: TORAdol 30 mg Injection ONE (08:23)
[2024-07-20] MEDS ORDERED: dexAMETHasone sodium phosphate ONE (08:23)
[2024-07-20] MEDS ORDERED: ROCURONIUM BROMIDE IV ONE (08:23)
[2024-07-20] MEDS ORDERED: SUBLIMAZE 100 MCG/2 ML ONE ×2 (08:23→10:02)
[2024-07-20] MEDS ORDERED: BRIDION 200MG/2ML IV ONE (08:23)
[2024-07-20] MEDS ORDERED: propofoL IV ONE (08:23)
--- NOTE | 2024-07-20 09:40 | CONS ---
REASON FOR CONSULT: Right hip pain. HISTORY: This patient is a 74-year-old female who was admitted last night with right hip pain. She had an injury approximately a week ago and was admitted to the hospital overnight. At that time she had a CT done of the right hip and was diagnosed with a greater trochanteric fracture. She was discharged with instructions to be weight bear as tolerated. She returned to the emergency room last night because of worsening hip pain and inability to ambulate. She had another CT scan done in the ED and was readmitted for orthopedic consultation. REVIEW OF SYSTEMS: Positive for right hip pain. Negative for allergies, psychological disorder, neurological disorder, fever, chills, weight gain, or weight loss. CURRENT MEDICATIONS: Metformin 500 mg p.o. b.i.d, Lotensin 20-25 one p.o. daily, magnesium oxide 250 mg daily, Lexapro 10 mg daily, potassium gluconate, Tylenol p.r.n, hydrocodone p.r.n. for pain, nitroglycerin p.r.n, and Ozempic. ALLERGIES: Penicillin and sulfa. PAST MEDICAL HISTORY: Significant for cataracts, high cholesterol, hypertension, diabetes type 2, depression. She denies cardiac disease. PAST SURGICAL HISTORY: She has had right forearm fracture repair, tubal ligation. SOCIAL HISTORY: Lives alone, nonsmoker. PHYSICAL EXAMINATION: GENERAL: She is awake, alert, oriented, cooperative, pleasant. Complains only of right hip pain. EXTREMITIES: Upper extremity exam is unremarkable. Right lower extremity exam significant for pain in the right hip with movement. There is no significant shortening of the limb. She can wiggle her toes and ankles. Toes are warm and pink with good capillary refill. LAB DATA AND TESTS: CT scan: Right hip shows a comminuted fracture of the greater trochanter with an intertrochanteric extension. IMPRESSION: Fracture right hip involving the greater trochanter and AV cervical region. PLAN: Recommend surgical repair of hip fracture. This could be done several different ways; however, I think that fixation of the trochanter is necessary. I would avoid doing a trochanteric entry with a TFN style nail. Therefore, this could be done with a nail if piriformis entry were selected which would be technically challenging with her body habitus. Therefore, I would recommend high-ankle plate fixation with a trochanteric claw device. I have discussed this with the patient. She also has anemia and will need to be transfused prior to surgery and will likely need additional blood transfusion after surgery.
[2024-07-20 11:34] LABS: Hemoglobin 9.9 g/dL (11.2-15.7)
[2024-07-20] MEDS ORDERED: Marcaine 0.5%/Epinephrine 10 ML ONE (13:50)
[2024-07-20] MEDS: HUMALOG SQ PRN (17:09)
--- NOTE | 2024-07-20 18:03 | XRAY ---
54 seconds of fluoroscopy was used in surgery for a right hip open reduction internal fixation.
--- NOTE | 2024-07-20 18:13 | XRAY ---
Indication: Right hip ORIF. Intraoperative fluoroscopy provided for 54 seconds. 8 digital spot images submitted for interpretation demonstrates gamma nail, lateral fixation plate, and orthopedic K wires fixating intertrochanteric fracture. Correlate with intraoperative findings/report.
[2024-07-20 20:04] LABS: Hematocrit 29.1 % (34.1-44.9); Hemoglobin 8.7 g/dL (11.2-15.7)
[2024-07-20] MEDS: ENOXAPARIN SODIUM SQ SCH (20:46)
[2024-07-20] MEDS: VANCOMYCIN 1 GRAM/200 ML BAG 1 GM/200 ML PIGGYBACK IV SCH (21:31)
--- NOTE | 2024-07-21 05:03 | PCM.NOTE ---
Date and Time: 07/21/24 0502 Subjective Assessment: is a 74 year old female with a history of type 2 diabetes mellitus, hypertension, hyperlipidemia, and depression who presented to ED 07/18/24 with worsening right hip pain. One week ago, she sustained a ground level fall while walking her dog and was found to have a comminuted, mildly displaced but overall nondisplaced fracture of the right greater trochanter. She was managed nonoperatively under orthopedic follow-up with Dr. Ybarra and had reportedly been doing well at home. Today, while sitting on a barstool, she developed acute exacerbation of right hip pain without any new trauma. She reports severe pain with movement and weight-bearing, resulting in inability to ambulate, even with a walker. She rates her pain 10/10 on a numerical pain scale with radiation to her back and down her right leg. On evaluation, vitals are stable. CT pelvis demonstrates progression of the fracture with new intratrochanteric extension and no evidence of healing or callus formation. Chronic findings include osteopenia, lower lumbar degenerative changes, sigmoid diverticulosis, and arteriosclerotic disease. Plan is to keep her [id number] on the right side. Ortho will be consulted again to reassess the fracture given the new extension and her worsening symptoms. PT/OT will evaluate to help guide safe discharge planning and will initiate pain control. 07/19/24: Met with patient bedside. Endorses improvement in right hip pain, currently rating it as 5 out of 10 on the numerical pain scale. Orthopedic surgery has been consulted, and surgical intervention for the right trochanteric fracture is scheduled for July 20, 2024, per Dr. Gallo. Laboratory results today are notable for pancytopenia, with a hemoglobin level of 6.7 g/dL. The patient will be transfused with two units of LPRBC today, with an additional two units to be held in anticipation of potential need during or after surgery. Given the presence of pancytopenia and anemia, outpatient hematology follow-up will be necessary for further evaluation. Stool occult blood testing will be performed to assess for possible gastrointestinal bleeding as a contributing factor. Additionally, the patient was found to have a low vitamin D level and will be started on daily supplementation. Denies fever,cough, sob, cp, abdominal pain, CHASE, dizziness, N/V/D. 07/20/24: Met with patient bedside. Pain remains improved rating 5/10 on numerical pain scale. Surgery today. Hemoglobin stable at 8.7 this morning. Plan for pain control and PT eval s/p surgery when able. Patient does live home alone and may need rehab. 07/21/24: No overnight events noted. Patient is POD#1 with pain to the right hip much improved rating 2/10 on numerical pain scale. PT has worked with patient and recommends swing bed for rehab which patient is agreeable to. Hemoglobin at 7.4 today- will transfuse with 2 units LPRBC. Denies fever,cough, sob, cp, abdominal pain, CHASE, dizziness, N/V/D. - Review of Systems Constitutional: No Symptoms Eyes: No Symptoms Ears, Nose, & Throat: No Symptoms Respiratory: No Symptoms Cardiac: No Symptoms Abdominal/Gastrointestinal: No Symptoms Genitourinary Symptoms: No Symptoms Musculoskeletal: Joint Pain, Joint Swelling (right knee) Skin: Other (Right hip surgical incision with surgical dressing CDI) Neurological: No Symptoms Psychological: No Symptoms Endocrine: No Symptoms Hematologic/Lymphatic: Anemia Immunological/Allergic: No Symptoms Objective Exam General Appearance: no apparent distress Neurologic Exam: alert, oriented x 3, cooperative Skin Exam: other (Right hip surgical incision with surgical dressing CDI) Wound Assessment: Skin/Wound Assessment Wound/Incision Assessment Start: 07/19/24 20:00 Text: Status: Active Freq: Q4H Protocol: Document 07/21/24 04:00 MP (Rec: 07/21/24 04:07 MP [id number]) Wound/Incision Assessment Right Hip Wound Assessment Shift Assessment Wound Type SURGICAL INCISIONS Dressing Status Dry & Intact Drainage Amount None Comment POST SURGICAL DRESSING C/D/I THIS NURSE WAS ADVISED DURING HAND OFF REPORT THAT PATIENT HAS SUTURES AND DAREK Eye Exam: PERRL Ears, Nose, Throat Exam: normal ENT inspection Neck Exam: normal inspection Respiratory Exam: normal breath sounds, lungs clear Cardiovascular Exam: regular rate/rhythm, normal heart sounds Gastrointestinal/Abdomen Exam: soft, normal bowel sounds Extremity Exam: joint swelling (right knee) Back Exam: normal inspection Pelvic Exam: deferred Rectal Exam: deferred Objective Data Vital Signs: Vital Signs - 24 hr Temp Pulse Resp BP Pulse Ox 07/21/24 04:00 97.3 F 63 18 133/60 94 L 07/21/24 00:00 18 07/20/24 22:56 97.0 F 72 18 124/57 94 L 07/20/24 20:00 18 07/20/24 19:00 97.1 F 82 18 105/50 95 07/20/24 16:00 19 07/20/24 15:48 98.2 F 86 18 98/50 90 L 07/20/24 14:43 97.7 F 92 H 18 125/59 94 L 07/20/24 13:30 98.6 F 92 H 18 160/74 95 07/20/24 13:15 97.9 F 90 18 167/74 94 L 07/20/24 12:45 98.2 F 91 H 18 185/81 95 07/20/24 12:30 98.1 F 84 20 181/80 94 L 07/20/24 12:15 97.9 F 88 20 180/73 94 L 07/20/24 12:00 97 F 86 28 H 167/77 90 L 07/20/24 08:00 20 07/20/24 07:38 97.4 F 80 18 136/62 93 L 07/20/24 06:48 98.3 F 71 18 131/59 95 Pain Assessment - Last Documented Pain Intensity 0 Pain Scale Used 0-10 Pain Scale Intake and Output: Intake & Output 07/18/24 07/19/24 07/20/24 07/21/24 11:59 11:59 11:59 11:59 Intake Total 620 2180 2061 Output Total 800 1550 1325 Balance -180 630 736 Weight 90.5 kg 90.8 kg 90.8 kg 90.8 kg Lab Results: Lab Results-Last 24 Hours 07/20/24 07/20/24 07/20/24 Range/Units 04:48 04:48 06:52 Hgb (11.2-15.7) g/dL Hct (34.1-44.9) % Sodium 140 (135-145) mmol/L Potassium 3.5 (3.5-5.1) mmol/L Chloride 103 (98-107) mmol/L Carbon Dioxide 29 (22-30) mmol/L Anion Gap 11.3 (5-15) MEQ/L BUN 12 (7-17) mg/dL Creatinine 0.56 (0.52-1.04) mg/dL Estimated GFR 96.3 ML/MIN Glucose 146 H (74-106) mg/dL POC Glucometer 147 H (74 to 106) mg/dL Hemoglobin A1c (4.5-6.0) % Calcium 9.1 (8.4-10.2) mg/dL Total Bilirubin 1.20 (0.2-1.3) mg/dL AST 28 (14-36) U/L ALT 23 (0-35) U/L Alkaline Phosphatase 113 (38-126) U/L Serum Total Protein 5.9 L (6.3-8.2) g/dL Albumin 3.6 (3.5-5.0) g/dL Slides for Path Review YES 07/20/24 07/20/24 07/20/24 Range/Units 11:30 11:30 15:50 Hgb 9.9 L (11.2-15.7) g/dL Hct 33.0 L (34.1-44.9) % Sodium (135-145) mmol/L Potassium (3.5-5.1) mmol/L Chloride (98-107) mmol/L Carbon Dioxide (22-30) mmol/L Anion Gap (5-15) MEQ/L BUN (7-17) mg/dL Creatinine (0.52-1.04) mg/dL Estimated GFR ML/MIN Glucose (74-106) mg/dL POC Glucometer 332 H (74 to 106) mg/dL Hemoglobin A1c 7.36 H (4.5-6.0) % Calcium (8.4-10.2) mg/dL Total Bilirubin (0.2-1.3) mg/dL AST (14-36) U/L ALT (0-35) U/L Alkaline Phosphatase (38-126) U/L Serum Total Protein (6.3-8.2) g/dL Albumin (3.5-5.0) g/dL Slides for Path Review 07/20/24 07/20/24 Range/Units 19:58 20:57 Hgb 8.7 L (11.2-15.7) g/dL Hct 29.1 L (34.1-44.9) % Sodium (135-145) mmol/L Potassium (3.5-5.1) mmol/L Chloride (98-107) mmol/L Carbon Dioxide (22-30) mmol/L Anion Gap (5-15) MEQ/L BUN (7-17) mg/dL Creatinine (0.52-1.04) mg/dL Estimated GFR ML/MIN Glucose (74-106) mg/dL POC Glucometer 328 H (74 to 106) mg/dL Hemoglobin A1c (4.5-6.0) % Calcium (8.4-10.2) mg/dL Total Bilirubin (0.2-1.3) mg/dL AST (14-36) U/L ALT (0-35) U/L Alkaline Phosphatase (38-126) U/L Serum Total Protein (6.3-8.2) g/dL Albumin (3.5-5.0) g/dL Slides for Path Review Radiology Exams: Radiology Procedures Category Date Time Status FLUOROSCOPY UP TO 1 HR Routine Exams 07/20/24 09:07 Completed HIP UNI (2V) INCL PEL IF DONE Routine Exams 07/20/24 09:07 Completed Medications: Medications Generic Name Dose Route Start Last Admin Trade Name Freq PRN Reason Stop Dose Admin Acetaminophen 650 mg 07/18/24 14:37 Acetaminophen 325 Mg Tablet PO 08/17/24 14:36 Q4H PRN PRN PAIN, FEVER, HEADACHE Hydrocodone Bitart/Acetaminophen 1 tab 07/18/24 14:37 07/20/24 21:00 Hydrocodone/Apap 5/325 1 Tab Tablet PO 07/25/24 12:00 1 tab Q4H PRN PRN Administration PAIN Benazepril HCl 20 mg 07/19/24 10:00 07/20/24 12:28 Benazepril Hcl 10 Mg Tablet PO 08/18/24 09:59 20 mg DAILY CAROLA Administration Cholecalciferol 1,000 unit 07/19/24 10:00 07/20/24 12:29 Cholecalciferol (Vitamin D3) 1000 Unit Tablet PO 08/18/24 09:59 1,000 unit DAILY CAROLA Administration Enoxaparin Sodium 30 mg 07/20/24 20:00 07/20/24 20:46 Enoxaparin Sodium 30 Mg/0.3 Ml Syringe SQ 07/22/24 08:01 30 mg Q12H CAROLA Administration Escitalopram Oxalate 10 mg 07/19/24 10:00 07/20/24 12:29 Escitalopram Oxalate 10 Mg Tablet PO 08/18/24 09:59 10 mg DAILY CAROLA Administration Ferrous Sulfate 325 mg 07/19/24 10:00 07/20/24 12:29 Ferrous Sulfate 325 Mg Tablet PO 08/18/24 09:59 325 mg DAILY CAROLA Administration Hydrochlorothiazide 25 mg 07/19/24 10:00 07/20/24 12:29 Hydrochlorothiazide 25 Mg Tablet PO 08/18/24 09:59 25 mg DAILY CAROLA Administration Hydromorphone HCl 0.5 mg 07/18/24 14:37 07/19/24 00:18 Hydromorphone 1 Mg/1ml Inj IV 07/25/24 12:00 0.5 mg Q4H PRN PRN Administration PAIN Sodium Chloride 1,000 mls @ 30 mls/hr 07/20/24 06:00 07/20/24 06:21 Sodium Chloride 0.9% 1000 Ml IV 08/19/24 05:59 30 mls/hr .Q24H CAROLA Administration KVO Vancomycin HCl 1 gm in 200 mls @ 133.333 mls/hr 07/20/24 22:00 07/20/24 21:31 Vancomycin 1 Gram/200 Ml Bag IV 07/21/24 11:29 133.333 mls/hr Q12HT CAROLA Administration Insulin Human Lispro 0 unit 07/20/24 16:54 07/20/24 21:31 Insulin Lispro 1 Unit SQ 08/19/24 16:53 9 unit UD PRN Administration HYPERGLYCEMIA Magnesium Oxide 200 mg 07/19/24 10:00 07/20/24 12:29 Magnesium Oxide 400 Mg Tablet PO 08/18/24 09:59 200 mg DAILY CAROLA Administration Miscellaneous Information 1 each 07/18/24 15:15 Medication Intervention 1 Each Each 08/17/24 15:14 .RN TO CHECK CAROLA Nitroglycerin 0.4 mg 07/18/24 14:41 Nitroglycerin 0.4 Mg Tablet Bottle SL 08/17/24 14:40 Q12H PRN PRN CHEST PAIN Ondansetron HCl 4 mg 07/18/24 14:37 Ondansetron Hcl 4 Mg/2 Ml Vial IV 08/17/24 14:36 Q6H PRN PRN NAUSEA/VOMITING Pantoprazole Sodium 40 mg 07/19/24 10:00 07/20/24 12:29 Protonix (Pantoprazole) 40 Mg Tablet PO 08/18/24 09:59 40 mg DAILY CAROLA Administration Discontinued Medications Generic Name Dose Route Start Last Admin Trade Name Osmani PRN Reason Stop Dose Admin Acetaminophen 1,000 mg 07/20/24 06:00 07/20/24 06:20 Acetaminophen 500 Mg Tablet PO 07/20/24 06:01 1,000 mg 2HRPRIOR ONE Administration Bupivacaine HCl/Epinephrine Bitart Confirm 07/20/24 13:50 Bupivacaine Hcl/Epinephrine 10 Ml Vial Administered 07/20/24 13:51 Dose 30 ml .ROUTE .STK-MED ONE Celecoxib 200 mg 07/20/24 06:00 07/20/24 06:19 Celecoxib 100 Mg Capsule PO 07/20/24 06:01 200 mg 2HRPRIOR ONE Administration Dexamethasone 8 mg 07/20/24 06:00 07/20/24 06:20 Dexamethasone 4 Mg Tablet PO 07/20/24 06:01 8 mg 2HRPRIOR ONE Administration Dexamethasone Sodium Phosphate Confirm 07/20/24 08:23 Dexamethasone Sodium Phosphate 4 Mg/Ml Vial Administered 07/20/24 08:24 Dose 8 mg .ROUTE .STK-MED ONE Fentanyl Citrate Confirm 07/20/24 08:23 Fentanyl Citrate 100 Mcg/2 Ml* Vial Administered 07/20/24 08:24 Dose 100 mcg .ROUTE .STK-MED ONE Fentanyl Citrate Confirm 07/20/24 10:02 Fentanyl Citrate 100 Mcg/2 Ml* Vial Administered 07/20/24 10:03 Dose 100 mcg .ROUTE .STK-MED ONE Gabapentin 300 mg 07/20/24 06:00 07/20/24 06:19 Gabapentin 300 Mg Capsule PO 07/20/24 06:01 300 mg 2HRPRIOR ONE Administration Sodium Chloride Confirm 07/19/24 08:22 Sodium Chloride 0.9% 500 Ml Administered 07/19/24 08:23 Dose 500 mls @ ud IV .STK-MED ONE Sodium Chloride Confirm 07/19/24 12:38 Sodium Chloride 0.9% 500 Ml Administered 07/19/24 12:39 Dose 500 mls @ ud IV .STK-MED ONE Vancomycin HCl 1 gm in 200 mls @ 125 mls/hr 07/20/24 06:00 07/20/24 06:20 Vancomycin 1 Gram/200 Ml Bag IV 07/20/24 07:35 125 mls/hr ONCE ONE Administration Insulin Human Lispro 0 unit 07/18/24 14:37 Insulin Lispro 1 Unit SQ 08/17/24 14:36 UD PRN HYPERGLYCEMIA Ketorolac Tromethamine Confirm 07/20/24 08:23 Ketorolac Tromethamine 30 Mg/Ml Inj Administered 07/20/24 08:24 Dose 30 mg .ROUTE .STK-MED ONE Lidocaine HCl Confirm 07/20/24 08:23 Lidocaine - Mpf 2% 5 Ml Vial Administered 07/20/24 08:24 Dose 5 ml .ROUTE .STK-MED ONE Non-Formulary Medication 1 tab 07/19/24 10:00 Benazepril/Hydrochlorothiazide [Lotensin Hct 20-25 Mg Tablet] PO 08/18/24 09:59 DAILY CAROLA Ondansetron HCl Confirm 07/20/24 08:23 Ondansetron Hcl 4 Mg/2 Ml Vial Administered 07/20/24 08:24 Dose 4 mg .ROUTE .STK-MED ONE Propofol Confirm 07/20/24 08:23 Propofol 200 Mg/20 Ml Vial Administered 07/20/24 08:24 Dose 200 mg IV .STK-MED ONE Rocuronium [place] Confirm 07/20/24 08:23 Rocuronium [place] 50 Mg/5 Ml Vial Administered 07/20/24 08:24 Dose 50 mg IV .STK-MED ONE Sugammadex Sodium Confirm 07/20/24 08:23 Sugammadex Sodium 200 Mg/2 Ml Vial Administered 07/20/24 08:24 Dose 200 mg IV .STK-MED ONE Multi-Disciplinary Progress Notes: Multi-Disciplinary Progress Notes 07/20/24 10:08 Case Management Note by Ledy San PATIENT IN OR AT THIS TIME- S/W SISTER IN OR WAITING. WILL PLAN TO KEEP PATIENT OVER THE WEEKEND TO BE SURE SHE IS ABLE TO WORK WITH PHYSICAL THERAPY AND PAIN CONTROLLED. WILL DISCUSS REHAB PLANS AGAIN ON TUESDAY Initialized on 07/20/24 10:08 - END OF NOTE Assessment/Plan (1) Trochanteric fracture of femur Current Visit: Yes Status: Acute Qualifiers: Encounter type: subsequent encounter Fracture type: closed Laterality: right Fracture healing: with routine healing Qualified Code(s): S72.101D - Unspecified trochanteric fracture of right femur, subsequent encounter for closed fracture with routine healing Assessment & Plan: -CT pelvis shows the same fracture but with new intratrochanteric extension -Ortho consulted appreciate recs -Pain control [place]/dilaudid -vitamin D level/calcium levels -PT/OT -[place] 07/19/24: -Discussed case with Dr. Gallo and surgical intervention for the right trochanteric fracture is scheduled for July 20, 2024, the patient will be transfused with two units of leukocyte-poor packed red blood cells today, with an additional two units to be held in anticipation of potential need during or after surgery 07/20: -Surgery today -PT/OT when able - may need rehab stay -CMP/CBC reviewed. 07/21: -POD#1 - pain controlled -Discussed case with PT - states she would be a good candidate for swing bed - will have CM work on this -CMP/CBC reviewed -Case discussed with Dr. Gallo - no new recommendations - agrees with 2 unit blood transfusion/continue pain control and PT Code(s): S72.109A - UNSP TROCHANTERIC FRACTURE OF UNSP FEMUR, INIT FOR CLOS FX Pancytopenia -CBC reviewed -Hgb at 6.7- will transfuse with 2 units LPRBC with CBC s/p transfusion - as stated above 2 units to be held for potential need during/after surgery -Occult stools -Iron panel reviewed with iron sat at 7%/ ferritin level at 7.42- will start on ferrous sulfate -Will refer to hematology as OP for further evaluation and iron transfusions 07/20: -Occult stools pending collection -Hgb stable at 8.7 s/p 2 unit LPRBC transfusion 07/19/24 -WBC level improved to 4.0 -Plts reviewed at 76 -Continue monitoring hemoglobin and platelets - transfuse if plt < 10 or hgb < 7 07/21: -CBC reviewed with hemoglobin at 7.4 - will transfuse with 2 units LPRBC Vitamin D deficiency -Vitamin D level reviewed at 25- will start supplementation at 1000 units daily- will need rechecked in 8 weeks for treatment response (2) HLD (hyperlipidemia) Current Visit: Yes Status: Acute Assessment & Plan: -Patient does not appear to be on statin- continue OP regimen Code(s): E78.5 - HYPERLIPIDEMIA, UNSPECIFIED (3) Depression Current Visit: Yes Status: Acute Assessment & Plan: -Resume Lexapro Code(s): F32.A - DEPRESSION, UNSPECIFIED (4) Essential (primary) hypertension Current Visit: No Status: Acute Assessment & Plan: -Continue home med benazepril/hctz Code(s): I10 - ESSENTIAL (PRIMARY) HYPERTENSION (5) Type 2 diabetes mellitus without complications Current Visit: No Status: Chronic Qualifiers: Diabetes mellitus bed bug exterminator insulin use: without intermediate use Qualified Code(s): E11.9 - Type 2 diabetes mellitus without complications Assessment & Plan: -ADA diet -SSI -A1c VTE: hold for ?sx - scd Dispo: 1-2 days Code status: Full code Code(s): S72.109A - UNSP TROCHANTERIC FRACTURE OF UNSP FEMUR, INIT FOR CLOS FX Code(s): S72.109A - UNSP TROCHANTERIC FRACTURE OF UNSP FEMUR, INIT FOR CLOS FX (2) HLD (hyperlipidemia) Current Visit: Yes Status: Acute Code(s): E78.5 - HYPERLIPIDEMIA, UNSPECIFIED (3) Depression Current Visit: Yes Status: Acute Code(s): F32.A - DEPRESSION, UNSPECIFIED (4) Essential (primary) hypertension Current Visit: No Status: Acute Code(s): I10 - ESSENTIAL (PRIMARY) HYPERTENSION (5) Type 2 diabetes mellitus without complications Current Visit: No Status: Chronic Qualifiers: Diabetes mellitus bed bug exterminator insulin use: without bed bug exterminator use Qualified Code(s): E11.9 - Type 2 diabetes mellitus without complications Code(s): E11.9 - TYPE 2 DIABETES MELLITUS WITHOUT COMPLICATIONS (6) Pancytopenia Current Visit: Yes Status: Acute Code(s): D61.818 - OTHER PANCYTOPENIA (7) Iron deficiency anemia Current Visit: Yes Status: Acute Code(s): D50.9 - IRON DEFICIENCY ANEMIA, UNSPECIFIED (8) Vitamin D deficiency Current Visit: Yes Status: Acute Code(s): E55.9 - VITAMIN D DEFICIENCY, UNSPECIFIED
[2024-07-21 07:03] LABS: Absolute Neutrophil Ct (ANC) 4.63 x10^3/uL (1.56-6.13); BASOPHIL % 0.2 % (0.1-1.2); Basophil (Absolute #) 0.01 x10^3/uL (0.01-0.08); Eosinophil (Absolute #) 0 x10^3/uL (0.04-0.36); Hematocrit 24.8 % (34.1-44.9); Hemoglobin 7.4 g/dL (11.2-15.7); IMMATURE GRAN # 0.02 x10^3u/L (0.001-0.031); IMMATURE GRAN % 0.4 % (0.001-0.429); Lymphocyte (Absolute #) 0.61 x10^3/uL (1.18-3.74); Lymphocytes % 10.7 % (19.3-51.7); Mean Cell Volume 75.6 fL (79.4-94.8); Mean Corpuscular Hemoglobin 22.6 pg (25.6-32.2); Mean Corpuscular Hgb Concent. 29.8 g/dL (32.2-35.5); Mean Platelet Volume 11.6 fL (9.4-12.3); Monocyte (Absolute #) 0.43 x10^3/uL (0.24-0.86); Monocytes % 7.5 % (4.7-12.5); Neutrophil % 81.2 % (34.0-71.1); Platelet Count 75 x10^3/uL (182-369); Red Blood Count 3.28 x10^6/uL (3.93-5.22); Red Cell Distribution Width 19.2 % (11.7-14.4); White Blood Count 5.7 x10^3/uL (3.98-10.04)
[2024-07-21 07:14] LABS: ALBUMIN 3.4 g/dL (3.5-5.0); ANION GAP 10.6 MEQ/L (5-15); BILIRUBIN,TOTAL 0.7 mg/dL (0.2-1.3); Calcium 8.6 mg/dL (8.4-10.2); Creatinine 1 0.58 mg/dL (0.52-1.04); EST GLOMERULAR FILTRATION RATE 95.5 ML/MIN; Potassium 3.8 mmol/L (3.5-5.1); Total Protein 5.6 g/dL (6.3-8.2)
--- NOTE | 2024-07-21 09:37 | PCM.NOTE ---
Date and Time: 07/21/24932 Subjective Assessment: doing well, pain much improved, she is up in chair Objective Exam General Appearance: no apparent distress Neurologic Exam: alert, oriented x 3, cooperative, normal mood/affect, sensation nml Skin Exam: normal color Wound Assessment: Skin/Wound Assessment Wound/Incision Assessment Start: 07/19/24 20:00 Text: Status: Active Freq: Q4H Protocol: Document 07/21/24 08:00 EK (Rec: 07/21/24 08:58 EK [id number]) Wound/Incision Assessment Right Hip Wound Assessment Shift Assessment Wound Type SURGICAL INCISIONS Dressing Status Dry & Intact Drainage Amount None Comment POST SURGICAL DRESSING REMAINS C/D/I Wound Photo Photo Taken No Extremity Exam: other Objective Data Vital Signs: Vital Signs - 24 hr Temp Pulse Resp BP Pulse Ox 07/21/24 08:00 19 07/21/24 07:24 96.9 F 70 16 139/63 95 07/21/24 04:00 97.3 F 63 18 133/60 94 L 07/21/24 00:00 18 07/20/24 22:56 97.0 F 72 18 124/57 94 L 07/20/24 20:00 18 07/20/24 19:00 97.1 F 82 18 105/50 95 07/20/24 16:00 19 07/20/24 15:48 98.2 F 86 18 98/50 90 L 07/20/24 14:43 97.7 F 92 H 18 125/59 94 L 07/20/24 13:30 98.6 F 92 H 18 160/74 95 07/20/24 13:15 97.9 F 90 18 167/74 94 L 07/20/24 12:45 98.2 F 91 H 18 185/81 95 07/20/24 12:30 98.1 F 84 20 181/80 94 L 07/20/24 12:15 97.9 F 88 20 180/73 94 L 07/20/24 12:00 97 F 86 28 H 167/77 90 L Pain Assessment - Last Documented Pain Intensity 3 Pain Scale Used 0-10 Pain Scale Intake and Output: Intake & Output 07/18/24 07/19/24 07/20/24 07/21/24 11:59 11:59 11:59 11:59 Intake Total 620 2180 2491 Output Total 800 1550 1325 Balance -573 924 5614 Weight 90.5 kg 90.8 kg 90.8 kg 90.6 kg Lab Results: Lab Results-Last 24 Hours 07/20/24 07/20/24 07/20/24 Range/Units 11:30 11:30 15:50 WBC (3.98-10.04) x10^3/uL RBC (3.93-5.22) x10^6/uL Hgb 9.9 L (11.2-15.7) g/dL Hct 33.0 L (34.1-44.9) % MCV (79.4-94.8) fL MCH (25.6-32.2) pg MCHC (32.2-35.5) g/dL RDW (11.7-14.4) % Plt Count (182-369) x10^3/uL MPV (9.4-12.3) fL Gran % (34.0-71.1) % Immature Gran % (Auto) (0.001-0.429) % Nucleat RBC Rel Count (0.00-0.2) % Eos # (Auto) (0.04-0.36) x10^3/uL Immature Gran # (Auto) (0.001-0.031) x10^3u/L Absolute Lymphs (auto) (1.18-3.74) x10^3/uL Absolute Monos (auto) (0.24-0.86) x10^3/uL Absolute Nucleated RBC (0.00-0.012) x10^3u/L Lymphocytes % (19.3-51.7) % Monocytes % (4.7-12.5) % Eosinophils % (0.7-5.8) % Basophils % (0.1-1.2) % Absolute Granulocytes (1.56-6.13) x10^3/uL Basophils # (0.01-0.08) x10^3/uL Sodium (135-145) mmol/L Potassium (3.5-5.1) mmol/L Chloride (98-107) mmol/L Carbon Dioxide (22-30) mmol/L Anion Gap (5-15) MEQ/L BUN (7-17) mg/dL Creatinine (0.52-1.04) mg/dL Estimated GFR ML/MIN Glucose (74-106) mg/dL POC Glucometer 332 H (74 to 106) mg/dL Hemoglobin A1c 7.36 H (4.5-6.0) % Calcium (8.4-10.2) mg/dL Total Bilirubin (0.2-1.3) mg/dL AST (14-36) U/L ALT (0-35) U/L Alkaline Phosphatase (38-126) U/L Serum Total Protein (6.3-8.2) g/dL Albumin (3.5-5.0) g/dL 07/20/24 07/20/24 07/21/24 Range/Units 19:58 20:57 06:45 WBC 5.7 (3.98-10.04) x10^3/uL RBC 3.28 L (3.93-5.22) x10^6/uL Hgb 8.7 L 7.4 L (11.2-15.7) g/dL Hct 29.1 L 24.8 L (34.1-44.9) % MCV 75.6 L (79.4-94.8) fL MCH 22.6 L (25.6-32.2) pg MCHC 29.8 L (32.2-35.5) g/dL RDW 19.2 H (11.7-14.4) % Plt Count 75 L (182-369) x10^3/uL MPV 11.6 (9.4-12.3) fL Gran % 81.2 H (34.0-71.1) % Immature Gran % (Auto) 0.4 (0.001-0.429) % Nucleat RBC Rel Count 0.0 (0.00-0.2) % Eos # (Auto) 0 L (0.04-0.36) x10^3/uL Immature Gran # (Auto) 0.02 (0.001-0.031) x10^3u/L Absolute Lymphs (auto) 0.61 L (1.18-3.74) x10^3/uL Absolute Monos (auto) 0.43 (0.24-0.86) x10^3/uL Absolute Nucleated RBC 0.00 (0.00-0.012) x10^3u/L Lymphocytes % 10.7 L (19.3-51.7) % Monocytes % 7.5 (4.7-12.5) % Eosinophils % 0.0 L (0.7-5.8) % Basophils % 0.2 (0.1-1.2) % Absolute Granulocytes 4.63 (1.56-6.13) x10^3/uL Basophils # 0.01 (0.01-0.08) x10^3/uL Sodium (135-145) mmol/L Potassium (3.5-5.1) mmol/L Chloride (98-107) mmol/L Carbon Dioxide (22-30) mmol/L Anion Gap (5-15) MEQ/L BUN (7-17) mg/dL Creatinine (0.52-1.04) mg/dL Estimated GFR ML/MIN Glucose (74-106) mg/dL POC Glucometer 328 H (74 to 106) mg/dL Hemoglobin A1c (4.5-6.0) % Calcium (8.4-10.2) mg/dL Total Bilirubin (0.2-1.3) mg/dL AST (14-36) U/L ALT (0-35) U/L Alkaline Phosphatase (38-126) U/L Serum Total Protein (6.3-8.2) g/dL Albumin (3.5-5.0) g/dL 07/21/24 07/21/24 Range/Units 06:45 07:07 WBC (3.98-10.04) x10^3/uL RBC (3.93-5.22) x10^6/uL Hgb (11.2-15.7) g/dL Hct (34.1-44.9) % MCV (79.4-94.8) fL MCH (25.6-32.2) pg MCHC (32.2-35.5) g/dL RDW (11.7-14.4) % Plt Count (182-369) x10^3/uL MPV (9.4-12.3) fL Gran % (34.0-71.1) % Immature Gran % (Auto) (0.001-0.429) % Nucleat RBC Rel Count (0.00-0.2) % Eos # (Auto) (0.04-0.36) x10^3/uL Immature Gran # (Auto) (0.001-0.031) x10^3u/L Absolute Lymphs (auto) (1.18-3.74) x10^3/uL Absolute Monos (auto) (0.24-0.86) x10^3/uL Absolute Nucleated RBC (0.00-0.012) x10^3u/L Lymphocytes % (19.3-51.7) % Monocytes % (4.7-12.5) % Eosinophils % (0.7-5.8) % Basophils % (0.1-1.2) % Absolute Granulocytes (1.56-6.13) x10^3/uL Basophils # (0.01-0.08) x10^3/uL Sodium 138 (135-145) mmol/L Potassium 3.8 (3.5-5.1) mmol/L Chloride 105 (98-107) mmol/L Carbon Dioxide 26 (22-30) mmol/L Anion Gap 10.6 (5-15) MEQ/L BUN 19 H (7-17) mg/dL Creatinine 0.58 (0.52-1.04) mg/dL Estimated GFR 95.5 ML/MIN Glucose 150 H (74-106) mg/dL POC Glucometer 146 H (74 to 106) mg/dL Hemoglobin A1c (4.5-6.0) % Calcium 8.6 (8.4-10.2) mg/dL Total Bilirubin 0.70 (0.2-1.3) mg/dL AST 38 H (14-36) U/L ALT 27 (0-35) U/L Alkaline Phosphatase 121 (38-126) U/L Serum Total Protein 5.6 L (6.3-8.2) g/dL Albumin 3.4 L (3.5-5.0) g/dL Radiology Exams: Radiology Procedures Category Date Time Status FLUOROSCOPY UP TO 1 HR Routine Exams 07/20/24 09:07 Completed HIP UNI (2V) INCL PEL IF DONE Routine Exams 07/20/24 09:07 Completed Medications: Medications Generic Name Dose Route Start Last Admin Trade Name Freq PRN Reason Stop Dose Admin Acetaminophen 650 mg 07/18/24 14:37 Acetaminophen 325 Mg Tablet PO 08/17/24 14:36 Q4H PRN PRN PAIN, FEVER, HEADACHE Hydrocodone Bitart/Acetaminophen 1 tab 07/18/24 14:37 07/21/24 08:29 Hydrocodone/Apap 5/325 1 Tab Tablet PO 07/25/24 12:00 1 tab Q4H PRN PRN Administration PAIN Benazepril HCl 20 mg 07/19/24 10:00 07/20/24 12:28 Benazepril Hcl 10 Mg Tablet PO 08/18/24 09:59 20 mg DAILY CAROLA Administration Cholecalciferol 1,000 unit 07/19/24 10:00 07/20/24 12:29 Cholecalciferol (Vitamin D3) 1000 Unit Tablet PO 08/18/24 09:59 1,000 unit DAILY CAROLA Administration Enoxaparin Sodium 30 mg 07/20/24 20:00 07/21/24 08:30 Enoxaparin Sodium 30 Mg/0.3 Ml Syringe SQ 07/22/24 08:01 30 mg Q12H CAROLA Administration Escitalopram Oxalate 10 mg 07/19/24 10:00 07/20/24 12:29 Escitalopram Oxalate 10 Mg Tablet PO 08/18/24 09:59 10 mg DAILY CAROLA Administration Ferrous Sulfate 325 mg 07/19/24 10:00 07/20/24 12:29 Ferrous Sulfate 325 Mg Tablet PO 08/18/24 09:59 325 mg DAILY CAROLA Administration Hydrochlorothiazide 25 mg 07/19/24 10:00 07/20/24 12:29 Hydrochlorothiazide 25 Mg Tablet PO 08/18/24 09:59 25 mg DAILY CAROLA Administration Hydromorphone HCl 0.5 mg 07/18/24 14:37 07/19/24 00:18 Hydromorphone 1 Mg/1ml Inj IV 07/25/24 12:00 0.5 mg Q4H PRN PRN Administration PAIN Sodium Chloride 1,000 mls @ 30 mls/hr 07/20/24 06:00 07/20/24 06:21 Sodium Chloride 0.9% 1000 Ml IV 08/19/24 05:59 30 mls/hr .Q24H CAROLA Administration KVO Vancomycin HCl 1 gm in 200 mls @ 133.333 mls/hr 07/20/24 22:00 07/20/24 21:31 Vancomycin 1 Gram/200 Ml Bag IV 07/21/24 11:29 133.333 mls/hr Q12HT CAROLA Administration Insulin Human Lispro 0 unit 07/20/24 16:54 07/20/24 21:31 Insulin Lispro 1 Unit SQ 08/19/24 16:53 9 unit UD PRN Administration HYPERGLYCEMIA Magnesium Oxide 200 mg 07/19/24 10:00 07/20/24 12:29 Magnesium Oxide 400 Mg Tablet PO 08/18/24 09:59 200 mg DAILY CAROLA Administration Miscellaneous Information 1 each 07/18/24 15:15 Medication Intervention 1 Each Each 08/17/24 15:14 .RN TO CHECK CAROLA Nitroglycerin 0.4 mg 07/18/24 14:41 Nitroglycerin 0.4 Mg Tablet Bottle SL 08/17/24 14:40 Q12H PRN PRN CHEST PAIN Ondansetron HCl 4 mg 07/18/24 14:37 Ondansetron Hcl 4 Mg/2 Ml Vial IV 08/17/24 14:36 Q6H PRN PRN NAUSEA/VOMITING Pantoprazole Sodium 40 mg 07/19/24 10:00 07/20/24 12:29 Protonix (Pantoprazole) 40 Mg Tablet PO 08/18/24 09:59 40 mg DAILY CAROLA Administration Discontinued Medications Generic Name Dose Route Start Last Admin Trade Name Freq PRN Reason Stop Dose Admin Acetaminophen 1,000 mg 07/20/24 06:00 07/20/24 06:20 Acetaminophen 500 Mg Tablet PO 07/20/24 06:01 1,000 mg 2HRPRIOR ONE Administration Bupivacaine HCl/Epinephrine Bitart Confirm 07/20/24 13:50 Bupivacaine Hcl/Epinephrine 10 Ml Vial Administered 07/20/24 13:51 Dose 30 ml .ROUTE .STK-MED ONE Celecoxib 200 mg 07/20/24 06:00 07/20/24 06:19 Celecoxib 100 Mg Capsule PO 07/20/24 06:01 200 mg 2HRPRIOR ONE Administration Dexamethasone 8 mg 07/20/24 06:00 07/20/24 06:20 Dexamethasone 4 Mg Tablet PO 07/20/24 06:01 8 mg 2HRPRIOR ONE Administration Dexamethasone Sodium Phosphate Confirm 07/20/24 08:23 Dexamethasone Sodium Phosphate 4 Mg/Ml Vial Administered 07/20/24 08:24 Dose 8 mg .ROUTE .STK-MED ONE Fentanyl Citrate Confirm 07/20/24 08:23 Fentanyl Citrate 100 Mcg/2 Ml* Vial Administered 07/20/24 08:24 Dose 100 mcg .ROUTE .STK-MED ONE Fentanyl Citrate Confirm 07/20/24 10:02 Fentanyl Citrate 100 Mcg/2 Ml* Vial Administered 07/20/24 10:03 Dose 100 mcg .ROUTE .STK-MED ONE Gabapentin 300 mg 07/20/24 06:00 07/20/24 06:19 Gabapentin 300 Mg Capsule PO 07/20/24 06:01 300 mg 2HRPRIOR ONE Administration Sodium Chloride Confirm 07/19/24 08:22 Sodium Chloride 0.9% 500 Ml Administered 07/19/24 08:23 Dose 500 mls @ ud IV .STK-MED ONE Sodium Chloride Confirm 07/19/24 12:38 Sodium Chloride 0.9% 500 Ml Administered 07/19/24 12:39 Dose 500 mls @ ud IV .STK-MED ONE Vancomycin HCl 1 gm in 200 mls @ 125 mls/hr 07/20/24 06:00 07/20/24 06:20 Vancomycin 1 Gram/200 Ml Bag IV 07/20/24 07:35 125 mls/hr ONCE ONE Administration Insulin Human Lispro 0 unit 07/18/24 14:37 Insulin Lispro 1 Unit SQ 08/17/24 14:36 UD PRN HYPERGLYCEMIA Ketorolac Tromethamine Confirm 07/20/24 08:23 Ketorolac Tromethamine 30 Mg/Ml Inj Administered 07/20/24 08:24 Dose 30 mg .ROUTE .STK-MED ONE Lidocaine HCl Confirm 07/20/24 08:23 Lidocaine - Mpf 2% 5 Ml Vial Administered 07/20/24 08:24 Dose 5 ml .ROUTE .STK-MED ONE Non-Formulary Medication 1 tab 07/19/24 10:00 Benazepril/Hydrochlorothiazide [Lotensin Hct 20-25 Mg Tablet] PO 08/18/24 09:59 DAILY CAROLA Ondansetron HCl Confirm 07/20/24 08:23 Ondansetron Hcl 4 Mg/2 Ml Vial Administered 07/20/24 08:24 Dose 4 mg .ROUTE .STK-MED ONE Propofol Confirm 07/20/24 08:23 Propofol 200 Mg/20 Ml Vial Administered 07/20/24 08:24 Dose 200 mg IV .STK-MED ONE Rocuronium [place] Confirm 07/20/24 08:23 Rocuronium [place] 50 Mg/5 Ml Vial Administered 07/20/24 08:24 Dose 50 mg IV .STK-MED ONE Sugammadex Sodium Confirm 07/20/24 08:23 Sugammadex Sodium 200 Mg/2 Ml Vial Administered 07/20/24 08:24 Dose 200 mg IV .STK-MED ONE Multi-Disciplinary Progress Notes: Multi-Disciplinary Progress Notes 07/20/24 10:08 Case Management Note by Ledy San PATIENT IN OR AT THIS TIME- S/W SISTER IN OR WAITING. WILL PLAN TO KEEP PATIENT OVER THE WEEKEND TO BE SURE SHE IS ABLE TO WORK WITH PHYSICAL THERAPY AND PAIN CONTROLLED. WILL DISCUSS REHAB PLANS AGAIN ON TUESDAY Initialized on 07/20/24 10:08 - END OF NOTE Assessment/Plan (1) Trochanteric fracture of femur Current Visit: Yes Status: Acute Qualifiers: Encounter type: subsequent encounter Fracture type: closed Laterality: right Fracture healing: with routine healing Qualified Code(s): S72.101D - Unspecified trochanteric fracture of right femur, subsequent encounter for closed fracture with routine healing Code(s): S72.109A - UNSP TROCHANTERIC FRACTURE OF UNSP FEMUR, INIT FOR CLOS FX (2) Pancytopenia Current Visit: Yes Status: Acute Code(s): D61.818 - OTHER PANCYTOPENIA
[2024-07-21 10:31] LABS: Slide Review 1 YES
[2024-07-21] MEDS: Docusate Sodium 100 MG PO PRN (16:11)
[2024-07-21] MEDS: MELATONIN PO PRN (21:03)
[2024-07-21 23:25] LABS: Hemoglobin 10.1 g/dL (11.2-15.7)
[2024-07-22 05:27] LABS: Absolute Neutrophil Ct (ANC) 4.08 x10^3/uL (1.56-6.13); BASOPHIL % 0.5 % (0.1-1.2); Basophil (Absolute #) 0.03 x10^3/uL (0.01-0.08); Eosinophil % 0.4 % (0.7-5.8); Eosinophil (Absolute #) 0.02 x10^3/uL (0.04-0.36); Hematocrit 31.4 % (34.1-44.9); Hemoglobin 9.7 g/dL (11.2-15.7); IMMATURE GRAN # 0.02 x10^3u/L (0.001-0.031); IMMATURE GRAN % 0.4 % (0.001-0.429); Lymphocyte (Absolute #) 0.89 x10^3/uL (1.18-3.74); Lymphocytes % 15.9 % (19.3-51.7); Mean Cell Volume 77.9 fL (79.4-94.8); Mean Corpuscular Hemoglobin 24.1 pg (25.6-32.2); Mean Corpuscular Hgb Concent. 30.9 g/dL (32.2-35.5); Mean Platelet Volume 10.4 fL (9.4-12.3); Monocyte (Absolute #) 0.55 x10^3/uL (0.24-0.86); Monocytes % 9.8 % (4.7-12.5); Platelet Count 74 x10^3/uL (182-369); Red Blood Count 4.03 x10^6/uL (3.93-5.22); Red Cell Distribution Width 19.6 % (11.7-14.4); White Blood Count 5.6 x10^3/uL (3.98-10.04)
[2024-07-22 08:08] LABS: ALBUMIN 3.5 g/dL (3.5-5.0); ANION GAP 12.3 MEQ/L (5-15); Calcium 8.7 mg/dL (8.4-10.2); Creatinine 1 0.51 mg/dL (0.52-1.04); EST GLOMERULAR FILTRATION RATE 98.5 ML/MIN; Potassium 3.7 mmol/L (3.5-5.1); Total Protein 5.8 g/dL (6.3-8.2)
--- NOTE | 2024-07-22 08:19 | PCM.NOTE ---
Date and Time: 07/22/24 0816 Subjective Assessment: is a 74 year old female with a history of type 2 diabetes mellitus, hypertension, hyperlipidemia, and depression who presented to ED 07/18/24 with worsening right hip pain. One week ago, she sustained a ground level fall while walking her dog and was found to have a comminuted, mildly displaced but overall nondisplaced fracture of the right greater trochanter. She was managed nonoperatively under orthopedic follow-up with Dr. Ybarra and had reportedly been doing well at home. Today, while sitting on a barstool, she developed acute exacerbation of right hip pain without any new trauma. She reports severe pain with movement and weight-bearing, resulting in inability to ambulate, even with a walker. She rates her pain 10/10 on a numerical pain scale with radiation to her back and down her right leg. On evaluation, vitals are stable. CT pelvis demonstrates progression of the fracture with new intratrochanteric extension and no evidence of healing or callus formation. Chronic findings include osteopenia, lower lumbar degenerative changes, sigmoid diverticulosis, and arteriosclerotic disease. Plan is to keep her [id number] on the right side. Ortho will be consulted again to reassess the fracture given the new extension and her worsening symptoms. PT/OT will evaluate to help guide safe discharge planning and will initiate pain control. 07/19/24: Met with patient bedside. Endorses improvement in right hip pain, currently rating it as 5 out of 10 on the numerical pain scale. Orthopedic surgery has been consulted, and surgical intervention for the right trochanteric fracture is scheduled for July 20, 2024, per Dr. Jauregui. Laboratory results today are notable for pancytopenia, with a hemoglobin level of 6.7 g/dL. The patient will be transfused with two units of LPRBC today, with an additional two units to be held in anticipation of potential need during or after surgery. Given the presence of pancytopenia and anemia, outpatient hematology follow-up will be necessary for further evaluation. Stool occult blood testing will be performed to assess for possible gastrointestinal bleeding as a contributing factor. Additionally, the patient was found to have a low vitamin D level and will be started on daily supplementation. Denies fever,cough, sob, cp, abdominal pain, CHASE, dizziness, N/V/D. 07/20/24: Met with patient bedside. Pain remains improved rating 5/10 on numerical pain scale. Surgery today. Hemoglobin stable at 8.7 this morning. Plan for pain control and PT eval s/p surgery when able. Patient does live home alone and may need rehab. 07/21/24: No overnight events noted. Patient is POD#1 with pain to the right hip much improved rating 2/10 on numerical pain scale. PT has worked with patient and recommends swing bed for rehab which patient is agreeable to. Hemoglobin at 7.4 today- will transfuse with 2 units LPRBC. Denies fever,cough, sob, cp, abdominal pain, CHASE, dizziness, N/V/D. 07/22/24: Patient doing well this morning PODS#2 following surgical repair of a right trochanteric fracture. She reports his pain as well controlled at 2/10 on the numerical pain scale. She is up and moving with assistance and participating well in physical therapy. Patient received 2 units of blood yesterday and feels improved since the transfusion.Denies dizziness, shortness of breath, chest pain, or any other new complaints. She is aware of and agreeable to the plan for transfer to a swing bed facility once insurance authorization is approved. - Review of Systems Constitutional: No Symptoms Eyes: No Symptoms Ears, Nose, & Throat: No Symptoms Respiratory: No Symptoms Cardiac: No Symptoms Abdominal/Gastrointestinal: No Symptoms Genitourinary Symptoms: No Symptoms Musculoskeletal: Joint Pain (Right hip) Skin: Other (surgical incision at the ) Objective Exam Wound Assessment: Skin/Wound Assessment Wound/Incision Assessment Start: 07/19/24 20:00 Text: Status: Active Freq: Q4H Protocol: Document 07/22/24 04:00 MP (Rec: 07/22/24 04:33 MP [id number]) Wound/Incision Assessment Right Hip Wound Assessment Shift Assessment Wound Type SURGICAL INCISIONS Dressing Status Dry & Intact Drainage Amount None Comment POST SURGICAL DRESSING REMAINS C/D/I DRESSING TO BE CHANGED TOMORROW PER DR. JAUREGUI ORDER Wound Photo Photo Taken No Objective Data Vital Signs: Vital Signs - 24 hr Temp Pulse Resp BP Pulse Ox 07/22/24 07:38 97.9 F 67 16 156/70 96 07/22/24 04:00 97.6 F 69 16 123/60 93 L 07/22/24 00:00 18 07/21/24 23:22 98.3 F 72 18 138/65 95 07/21/24 20:00 18 07/21/24 19:48 99.4 F 72 19 136/63 96 07/21/24 16:00 98.5 F 72 19 114/58 95 07/21/24 12:00 19 07/21/24 11:19 97.2 F 73 16 140/63 95 Pain Assessment - Last Documented Pain Intensity 5 Pain Scale Used 0-10 Pain Scale Intake and Output: Intake & Output 07/19/24 07/20/24 07/21/24 07/22/24 11:59 11:59 11:59 11:59 Intake Total 620 2180 2491 2420 Output Total 800 1550 1325 700 Balance -740 651 8537 1720 Weight 90.8 kg 90.8 kg 90.6 kg Lab Results: Lab Results-Last 24 Hours 07/21/24 07/21/24 07/21/24 Range/Units 06:45 10:58 20:59 WBC (3.98-10.04) x10^3/uL RBC (3.93-5.22) x10^6/uL Hgb (11.2-15.7) g/dL Hct (34.1-44.9) % MCV (79.4-94.8) fL MCH (25.6-32.2) pg MCHC (32.2-35.5) g/dL RDW (11.7-14.4) % Plt Count (182-369) x10^3/uL MPV (9.4-12.3) fL Gran % (34.0-71.1) % Immature Gran % (Auto) (0.001-0.429) % Nucleat RBC Rel Count (0.00-0.2) % Eos # (Auto) (0.04-0.36) x10^3/uL Immature Gran # (Auto) (0.001-0.031) x10^3u/L Absolute Lymphs (auto) (1.18-3.74) x10^3/uL Absolute Monos (auto) (0.24-0.86) x10^3/uL Absolute Nucleated RBC (0.00-0.012) x10^3u/L Lymphocytes % (19.3-51.7) % Monocytes % (4.7-12.5) % Eosinophils % (0.7-5.8) % Basophils % (0.1-1.2) % Absolute Granulocytes (1.56-6.13) x10^3/uL Basophils # (0.01-0.08) x10^3/uL POC Glucometer 161 H 200 H (74 to 106) mg/dL Slides for Path Review YES 07/21/24 07/22/24 07/22/24 Range/Units 23:22 05:23 07:32 WBC 5.6 (3.98-10.04) x10^3/uL RBC 4.03 (3.93-5.22) x10^6/uL Hgb 10.1 L D 9.7 L (11.2-15.7) g/dL Hct 32.0 L 31.4 L (34.1-44.9) % MCV 77.9 L (79.4-94.8) fL MCH 24.1 L (25.6-32.2) pg MCHC 30.9 L (32.2-35.5) g/dL RDW 19.6 H (11.7-14.4) % Plt Count 74 L (182-369) x10^3/uL MPV 10.4 (9.4-12.3) fL Gran % 73.0 H (34.0-71.1) % Immature Gran % (Auto) 0.4 (0.001-0.429) % Nucleat RBC Rel Count 0.0 (0.00-0.2) % Eos # (Auto) 0.02 L (0.04-0.36) x10^3/uL Immature Gran # (Auto) 0.02 (0.001-0.031) x10^3u/L Absolute Lymphs (auto) 0.89 L (1.18-3.74) x10^3/uL Absolute Monos (auto) 0.55 (0.24-0.86) x10^3/uL Absolute Nucleated RBC 0.00 (0.00-0.012) x10^3u/L Lymphocytes % 15.9 L (19.3-51.7) % Monocytes % 9.8 (4.7-12.5) % Eosinophils % 0.4 L (0.7-5.8) % Basophils % 0.5 (0.1-1.2) % Absolute Granulocytes 4.08 (1.56-6.13) x10^3/uL Basophils # 0.03 (0.01-0.08) x10^3/uL POC Glucometer 183 H (74 to 106) mg/dL Slides for Path Review Radiology Exams: Radiology Procedures Category Date Time Status FLUOROSCOPY UP TO 1 HR Routine Exams 07/20/24 09:07 Completed HIP UNI (2V) INCL PEL IF DONE Routine Exams 07/20/24 09:07 Completed Medications: Medications Generic Name Dose Route Start Last Admin Trade Name Freq PRN Reason Stop Dose Admin Acetaminophen 650 mg 07/18/24 14:37 Acetaminophen 325 Mg Tablet PO 08/17/24 14:36 Q4H PRN PRN PAIN, FEVER, HEADACHE Hydrocodone Bitart/Acetaminophen 1 tab 07/18/24 14:37 07/22/24 05:50 Hydrocodone/Apap 5/325 1 Tab Tablet PO 07/25/24 12:00 1 tab Q4H PRN PRN Administration PAIN Benazepril HCl 20 mg 07/19/24 10:00 07/21/24 10:08 Benazepril Hcl 10 Mg Tablet PO 08/18/24 09:59 20 mg DAILY CAROLA Administration Cholecalciferol 1,000 unit 07/19/24 10:00 07/21/24 10:08 Cholecalciferol (Vitamin D3) 1000 Unit Tablet PO 08/18/24 09:59 1,000 unit DAILY CAROLA Administration Docusate Sodium 100 mg 07/21/24 15:35 07/21/24 16:11 Docusate Sodium 100 Mg Capsule PO 08/20/24 15:34 100 mg BIDPRN PRN Administration CONSTIPATION Escitalopram Oxalate 10 mg 07/19/24 10:00 07/21/24 10:08 Escitalopram Oxalate 10 Mg Tablet PO 08/18/24 09:59 10 mg DAILY CAROLA Administration Ferrous Sulfate 325 mg 07/19/24 10:00 07/21/24 10:08 Ferrous Sulfate 325 Mg Tablet PO 08/18/24 09:59 325 mg DAILY CAROLA Administration Hydrochlorothiazide 25 mg 07/19/24 10:00 07/21/24 10:08 Hydrochlorothiazide 25 Mg Tablet PO 08/18/24 09:59 25 mg DAILY CAROLA Administration Hydromorphone HCl 0.5 mg 07/18/24 14:37 07/22/24 00:04 Hydromorphone 1 Mg/1ml Inj IV 07/25/24 12:00 0.5 mg Q4H PRN PRN Administration PAIN Sodium Chloride 1,000 mls @ 30 mls/hr 07/20/24 06:00 07/22/24 06:47 Sodium Chloride 0.9% 1000 Ml IV 08/19/24 05:59 Not Given .Q24H CAROLA KVO Insulin Human Lispro 0 unit 07/20/24 16:54 07/20/24 21:31 Insulin Lispro 1 Unit SQ 08/19/24 16:53 9 unit UD PRN Administration HYPERGLYCEMIA Magnesium Oxide 200 mg 07/19/24 10:00 07/21/24 10:08 Magnesium Oxide 400 Mg Tablet PO 08/18/24 09:59 200 mg DAILY CAROLA Administration Melatonin 3 mg 07/21/24 10:17 07/21/24 21:03 Melatonin 3 Mg Tablet PO 08/20/24 10:16 3 mg HS PRN PRN Administration INSOMNIA Miscellaneous Information 1 each 07/18/24 15:15 Medication Intervention 1 Each Each 08/17/24 15:14 .RN TO CHECK CAROLA Nitroglycerin 0.4 mg 07/18/24 14:41 Nitroglycerin 0.4 Mg Tablet Bottle SL 08/17/24 14:40 Q12H PRN PRN CHEST PAIN Ondansetron HCl 4 mg 07/18/24 14:37 Ondansetron Hcl 4 Mg/2 Ml Vial IV 08/17/24 14:36 Q6H PRN PRN NAUSEA/VOMITING Pantoprazole Sodium 40 mg 07/19/24 10:00 07/21/24 10:08 Protonix (Pantoprazole) 40 Mg Tablet PO 08/18/24 09:59 40 mg DAILY CAROLA Administration Discontinued Medications Generic Name Dose Route Start Last Admin Trade Name Freq PRN Reason Stop Dose Admin Acetaminophen 1,000 mg 07/20/24 06:00 07/20/24 06:20 Acetaminophen 500 Mg Tablet PO 07/20/24 06:01 1,000 mg 2HRPRIOR ONE Administration Bupivacaine HCl/Epinephrine Bitart Confirm 07/20/24 13:50 Bupivacaine Hcl/Epinephrine 10 Ml Vial Administered 07/20/24 13:51 Dose 30 ml .ROUTE .STK-MED ONE Celecoxib 200 mg 07/20/24 06:00 07/20/24 06:19 Celecoxib 100 Mg Capsule PO 07/20/24 06:01 200 mg 2HRPRIOR ONE Administration Dexamethasone 8 mg 07/20/24 06:00 07/20/24 06:20 Dexamethasone 4 Mg Tablet PO 07/20/24 06:01 8 mg 2HRPRIOR ONE Administration Dexamethasone Sodium Phosphate Confirm 07/20/24 08:23 Dexamethasone Sodium Phosphate 4 Mg/Ml Vial Administered 07/20/24 08:24 Dose 8 mg .ROUTE .STK-MED ONE Enoxaparin Sodium 30 mg 07/20/24 20:00 07/21/24 20:53 Enoxaparin Sodium 30 Mg/0.3 Ml Syringe SQ 07/22/24 08:01 30 mg Q12H CAROLA Administration Fentanyl Citrate Confirm 07/20/24 08:23 Fentanyl Citrate 100 Mcg/2 Ml* Vial Administered 07/20/24 08:24 Dose 100 mcg .ROUTE .STK-MED ONE Fentanyl Citrate Confirm 07/20/24 10:02 Fentanyl Citrate 100 Mcg/2 Ml* Vial Administered 07/20/24 10:03 Dose 100 mcg .ROUTE .STK-MED ONE Gabapentin 300 mg 07/20/24 06:00 07/20/24 06:19 Gabapentin 300 Mg Capsule PO 07/20/24 06:01 300 mg 2HRPRIOR ONE Administration Sodium Chloride Confirm 07/19/24 08:22 Sodium Chloride 0.9% 500 Ml Administered 07/19/24 08:23 Dose 500 mls @ ud IV .STK-MED ONE Sodium Chloride Confirm 07/19/24 12:38 Sodium Chloride 0.9% 500 Ml Administered 07/19/24 12:39 Dose 500 mls @ ud IV .STK-MED ONE Vancomycin HCl 1 gm in 200 mls @ 125 mls/hr 07/20/24 06:00 07/20/24 06:20 Vancomycin 1 Gram/200 Ml Bag IV 07/20/24 07:35 125 mls/hr ONCE ONE Administration Vancomycin HCl 1 gm in 200 mls @ 133.333 mls/hr 07/20/24 22:00 07/21/24 10:08 Vancomycin 1 Gram/200 Ml Bag IV 07/21/24 11:29 133.333 mls/hr Q12HT CAROLA Administration Insulin Human Lispro 0 unit 07/18/24 14:37 Insulin Lispro 1 Unit SQ 08/17/24 14:36 UD PRN HYPERGLYCEMIA Ketorolac Tromethamine Confirm 07/20/24 08:23 Ketorolac Tromethamine 30 Mg/Ml Inj Administered 07/20/24 08:24 Dose 30 mg .ROUTE .STK-MED ONE Lidocaine HCl Confirm 07/20/24 08:23 Lidocaine - Mpf 2% 5 Ml Vial Administered 07/20/24 08:24 Dose 5 ml .ROUTE .STK-MED ONE Non-Formulary Medication 1 tab 07/19/24 10:00 Benazepril/Hydrochlorothiazide [Lotensin Hct 20-25 Mg Tablet] PO 08/18/24 09:59 DAILY CAROLA Ondansetron HCl Confirm 07/20/24 08:23 Ondansetron Hcl 4 Mg/2 Ml Vial Administered 07/20/24 08:24 Dose 4 mg .ROUTE .STK-MED ONE Propofol Confirm 07/20/24 08:23 Propofol 200 Mg/20 Ml Vial Administered 07/20/24 08:24 Dose 200 mg IV .STK-MED ONE Rocuronium [place] Confirm 07/20/24 08:23 Rocuronium [place] 50 Mg/5 Ml Vial Administered 07/20/24 08:24 Dose 50 mg IV .STK-MED ONE Sugammadex Sodium Confirm 07/20/24 08:23 Sugammadex Sodium 200 Mg/2 Ml Vial Administered 07/20/24 08:24 Dose 200 mg IV .STK-MED ONE Assessment/Plan (1) Trochanteric fracture of femur Current Visit: Yes Status: Acute Qualifiers: Encounter type: subsequent encounter Fracture type: closed Laterality: right Fracture healing: with routine healing Qualified Code(s): S72.101D - Unspecified trochanteric fracture of right femur, subsequent encounter for closed fracture with routine healing Assessment & Plan: -CT pelvis shows the same fracture but with new intratrochanteric extension -Ortho consulted appreciate recs -Pain control [place]/dilaudid -vitamin D level/calcium levels -PT/OT -[place] 07/19/24: -Discussed case with Dr. Jauregui and surgical intervention for the right trochanteric fracture is scheduled for July 20, 2024, the patient will be transfused with two units of leukocyte-poor packed red blood cells today, with an additional two units to be held in anticipation of potential need during or after surgery 07/20: -Surgery today -PT/OT when able - may need rehab stay -CMP/CBC reviewed. 07/21: -POD#1 - pain controlled -Discussed case with PT - states she would be a good candidate for swing bed - will have CM work on this -CMP/CBC reviewed -Case discussed with Dr. Jauregui - no new recommendations - agrees with 2 unit blood transfusion/continue pain control and PT 07/22: -PODS#2 - pain controlled -Discussed case with Ortho- start daily aspirin 325mg -Continue IPPT -Swing bed approval pending -CMP/CBC reviewed Code(s): S72.109A - UNSP TROCHANTERIC FRACTURE OF UNSP FEMUR, INIT FOR CLOS FX Pancytopenia -CBC reviewed -Hgb at 6.7- will transfuse with 2 units LPRBC with CBC s/p transfusion - as stated above 2 units to be held for potential need during/after surgery -Occult stools -Iron panel reviewed with iron sat at 7%/ ferritin level at 7.42- will start on ferrous sulfate -Will refer to hematology as OP for further evaluation and iron transfusions 07/20: -Occult stools pending collection -Hgb stable at 8.7 s/p 2 unit LPRBC transfusion 07/19/24 -WBC level improved to 4.0 -Plts reviewed at 76 -Continue monitoring hemoglobin and platelets - transfuse if plt < 10 or hgb < 7 07/21: -CBC reviewed with hemoglobin at 7.4 - will transfuse with 2 units LPRBC 07/22: -CBC reviewed- WBC now wnl, Hgb stable at 9.7 s/p a total of 4 units LPRBC, plts at 74 -Occult stools pending collection -Ferrous sulfate started - will need OP hematology for evaluation/ iron infusions Vitamin D deficiency -Vitamin D level reviewed at 25- will start supplementation at 1000 units daily- will need rechecked in 12 weeks for treatment response -Encouraged intake of vitamin D -rich food and safe sun exposure (2) HLD (hyperlipidemia) Current Visit: Yes Status: Acute Assessment & Plan: -Patient does not appear to be on statin- continue OP regimen Code(s): E78.5 - HYPERLIPIDEMIA, UNSPECIFIED (3) Depression Current Visit: Yes Status: Acute Assessment & Plan: -Resume Lexapro Code(s): F32.A - DEPRESSION, UNSPECIFIED (4) Essential (primary) hypertension Current Visit: No Status: Acute Assessment & Plan: -Continue home med benazepril/hctz Code(s): I10 - ESSENTIAL (PRIMARY) HYPERTENSION (5) Type 2 diabetes mellitus without complications Current Visit: No Status: Chronic Qualifiers: Diabetes mellitus snf insulin use: without snf use Qualified Code(s): E11.9 - Type 2 diabetes mellitus without complications Assessment & Plan: -ADA diet -SSI -A1c VTE: hold for ?sx - scd Dispo: 1-2 days Code status: Full code Code(s): S72.109A - UNSP TROCHANTERIC FRACTURE Code(s): S72.109A - UNSP TROCHANTERIC FRACTURE OF UNSP FEMUR, INIT FOR CLOS FX (2) HLD (hyperlipidemia) Current Visit: Yes Status: Acute Code(s): E78.5 - HYPERLIPIDEMIA, UNSPECIFIED (3) Depression Current Visit: Yes Status: Acute Code(s): F32.A - DEPRESSION, UNSPECIFIED (4) Essential (primary) hypertension Current Visit: No Status: Acute Code(s): I10 - ESSENTIAL (PRIMARY) HYPERTENSION (5) Type 2 diabetes mellitus without complications Current Visit: No Status: Chronic Qualifiers: Diabetes mellitus snf insulin use: without technician terminal and repeater use Qualified Code(s): E11.9 - Type 2 diabetes mellitus without complications Code(s): E11.9 - TYPE 2 DIABETES MELLITUS WITHOUT COMPLICATIONS (6) Pancytopenia Current Visit: Yes Status: Acute Code(s): D61.818 - OTHER PANCYTOPENIA (7) Iron deficiency anemia Current Visit: Yes Status: Acute Code(s): D50.9 - IRON DEFICIENCY ANEMIA, UNSPECIFIED (8) Vitamin D deficiency Current Visit: Yes Status: Acute Code(s): E55.9 - VITAMIN D DEFICIENCY, UNSPECIFIED
[2024-07-22 08:45] LABS: Slide Review 1 YES
[2024-07-22] MEDS: Ecotrin 325 MG PO SCH (08:54)
--- NOTE | 2024-07-22 09:10 | PCM.NOTE ---
Date and Time: 07/22/24904 Subjective Assessment: POD 2 right hip ORIF c/o more pain today, but tolerable Objective Exam General Appearance: no apparent distress, alert Neurologic Exam: alert, oriented x 3, cooperative, normal mood/affect, sensation nml Skin Exam: normal color Wound Assessment: Skin/Wound Assessment Wound/Incision Assessment Start: 07/19/24 20:00 Text: Status: Active Freq: Q4H Protocol: Document 07/22/24 08:00 RB (Rec: 07/22/24 08:38 RB [id number]) Wound/Incision Assessment Right Hip Wound Assessment Shift Assessment Wound Type SURGICAL INCISIONS Dressing Status Dry & Intact Drainage Amount None Comment post op drsg intact at this time, will change this shift at am care Wound Photo Photo Taken No Eye Exam: PERRL, EOMI Extremity Exam: normal inspection, limited range of motion Objective Data Vital Signs: Vital Signs - 24 hr Temp Pulse Resp BP Pulse Ox 07/22/24 08:00 16 07/22/24 07:38 97.9 F 67 16 156/70 96 07/22/24 04:00 97.6 F 69 16 123/60 93 L 07/22/24 00:00 18 07/21/24 23:22 98.3 F 72 18 138/65 95 07/21/24 20:00 18 07/21/24 19:48 99.4 F 72 19 136/63 96 07/21/24 16:00 98.5 F 72 19 114/58 95 07/21/24 12:00 19 07/21/24 11:19 97.2 F 73 16 140/63 95 Pain Assessment - Last Documented Pain Intensity 4 Pain Scale Used 0-10 Pain Scale Intake and Output: Intake & Output 07/19/24 07/20/24 07/21/24 07/22/24 11:59 11:59 11:59 11:59 Intake Total 620 2180 2491 2420 Output Total 800 1550 1325 700 Balance -752 493 1233 1720 Weight 90.8 kg 90.8 kg 90.6 kg Lab Results: Lab Results-Last 24 Hours 07/21/24 07/21/24 07/21/24 Range/Units 06:45 10:58 20:59 WBC (3.98-10.04) x10^3/uL RBC (3.93-5.22) x10^6/uL Hgb (11.2-15.7) g/dL Hct (34.1-44.9) % MCV (79.4-94.8) fL MCH (25.6-32.2) pg MCHC (32.2-35.5) g/dL RDW (11.7-14.4) % Plt Count (182-369) x10^3/uL MPV (9.4-12.3) fL Gran % (34.0-71.1) % Immature Gran % (Auto) (0.001-0.429) % Nucleat RBC Rel Count (0.00-0.2) % Eos # (Auto) (0.04-0.36) x10^3/uL Immature Gran # (Auto) (0.001-0.031) x10^3u/L Absolute Lymphs (auto) (1.18-3.74) x10^3/uL Absolute Monos (auto) (0.24-0.86) x10^3/uL Absolute Nucleated RBC (0.00-0.012) x10^3u/L Lymphocytes % (19.3-51.7) % Monocytes % (4.7-12.5) % Eosinophils % (0.7-5.8) % Basophils % (0.1-1.2) % Absolute Granulocytes (1.56-6.13) x10^3/uL Basophils # (0.01-0.08) x10^3/uL Sodium (135-145) mmol/L Potassium (3.5-5.1) mmol/L Chloride (98-107) mmol/L Carbon Dioxide (22-30) mmol/L Anion Gap (5-15) MEQ/L BUN (7-17) mg/dL Creatinine (0.52-1.04) mg/dL Estimated GFR ML/MIN Glucose (74-106) mg/dL POC Glucometer 161 H 200 H (74 to 106) mg/dL Calcium (8.4-10.2) mg/dL Total Bilirubin (0.2-1.3) mg/dL AST (14-36) U/L ALT (0-35) U/L Alkaline Phosphatase (38-126) U/L Serum Total Protein (6.3-8.2) g/dL Albumin (3.5-5.0) g/dL Slides for Path Review YES 07/21/24 07/22/24 07/22/24 Range/Units 23:22 05:23 05:23 WBC 5.6 (3.98-10.04) x10^3/uL RBC 4.03 (3.93-5.22) x10^6/uL Hgb 10.1 L D 9.7 L (11.2-15.7) g/dL Hct 32.0 L 31.4 L (34.1-44.9) % MCV 77.9 L (79.4-94.8) fL MCH 24.1 L (25.6-32.2) pg MCHC 30.9 L (32.2-35.5) g/dL RDW 19.6 H (11.7-14.4) % Plt Count 74 L (182-369) x10^3/uL MPV 10.4 (9.4-12.3) fL Gran % 73.0 H (34.0-71.1) % Immature Gran % (Auto) 0.4 (0.001-0.429) % Nucleat RBC Rel Count 0.0 (0.00-0.2) % Eos # (Auto) 0.02 L (0.04-0.36) x10^3/uL Immature Gran # (Auto) 0.02 (0.001-0.031) x10^3u/L Absolute Lymphs (auto) 0.89 L (1.18-3.74) x10^3/uL Absolute Monos (auto) 0.55 (0.24-0.86) x10^3/uL Absolute Nucleated RBC 0.00 (0.00-0.012) x10^3u/L Lymphocytes % 15.9 L (19.3-51.7) % Monocytes % 9.8 (4.7-12.5) % Eosinophils % 0.4 L (0.7-5.8) % Basophils % 0.5 (0.1-1.2) % Absolute Granulocytes 4.08 (1.56-6.13) x10^3/uL Basophils # 0.03 (0.01-0.08) x10^3/uL Sodium 138 (135-145) mmol/L Potassium 3.7 (3.5-5.1) mmol/L Chloride 105 (98-107) mmol/L Carbon Dioxide 25 (22-30) mmol/L Anion Gap 12.3 (5-15) MEQ/L BUN 20 H (7-17) mg/dL Creatinine 0.51 L (0.52-1.04) mg/dL Estimated GFR 98.5 ML/MIN Glucose 153 H (74-106) mg/dL POC Glucometer (74 to 106) mg/dL Calcium 8.7 (8.4-10.2) mg/dL Total Bilirubin 1.00 (0.2-1.3) mg/dL AST 44 H (14-36) U/L ALT 31 (0-35) U/L Alkaline Phosphatase 141 H (38-126) U/L Serum Total Protein 5.8 L (6.3-8.2) g/dL Albumin 3.5 (3.5-5.0) g/dL Slides for Path Review YES 07/22/24 Range/Units 07:32 WBC (3.98-10.04) x10^3/uL RBC (3.93-5.22) x10^6/uL Hgb (11.2-15.7) g/dL Hct (34.1-44.9) % MCV (79.4-94.8) fL MCH (25.6-32.2) pg MCHC (32.2-35.5) g/dL RDW (11.7-14.4) % Plt Count (182-369) x10^3/uL MPV (9.4-12.3) fL Gran % (34.0-71.1) % Immature Gran % (Auto) (0.001-0.429) % Nucleat RBC Rel Count (0.00-0.2) % Eos # (Auto) (0.04-0.36) x10^3/uL Immature Gran # (Auto) (0.001-0.031) x10^3u/L Absolute Lymphs (auto) (1.18-3.74) x10^3/uL Absolute Monos (auto) (0.24-0.86) x10^3/uL Absolute Nucleated RBC (0.00-0.012) x10^3u/L Lymphocytes % (19.3-51.7) % Monocytes % (4.7-12.5) % Eosinophils % (0.7-5.8) % Basophils % (0.1-1.2) % Absolute Granulocytes (1.56-6.13) x10^3/uL Basophils # (0.01-0.08) x10^3/uL Sodium (135-145) mmol/L Potassium (3.5-5.1) mmol/L Chloride (98-107) mmol/L Carbon Dioxide (22-30) mmol/L Anion Gap (5-15) MEQ/L BUN (7-17) mg/dL Creatinine (0.52-1.04) mg/dL Estimated GFR ML/MIN Glucose (74-106) mg/dL POC Glucometer 183 H (74 to 106) mg/dL Calcium (8.4-10.2) mg/dL Total Bilirubin (0.2-1.3) mg/dL AST (14-36) U/L ALT (0-35) U/L Alkaline Phosphatase (38-126) U/L Serum Total Protein (6.3-8.2) g/dL Albumin (3.5-5.0) g/dL Slides for Path Review Radiology Exams: Radiology Procedures Category Date Time Status FLUOROSCOPY UP TO 1 HR Routine Exams 07/20/24 09:07 Completed HIP UNI (2V) INCL PEL IF DONE Routine Exams 07/20/24 09:07 Completed Medications: Medications Generic Name Dose Route Start Last Admin Trade Name Freq PRN Reason Stop Dose Admin Acetaminophen 650 mg 07/18/24 14:37 Acetaminophen 325 Mg Tablet PO 08/17/24 14:36 Q4H PRN PRN PAIN, FEVER, HEADACHE Hydrocodone Bitart/Acetaminophen 1 tab 07/18/24 14:37 07/22/24 05:50 Hydrocodone/Apap 5/325 1 Tab Tablet PO 07/25/24 12:00 1 tab Q4H PRN PRN Administration PAIN Aspirin 325 mg 07/22/24 10:00 07/22/24 08:54 Aspirin 325 Mg Tablet.Ec PO 08/21/24 09:59 325 mg QAM CAROLA Administration Benazepril HCl 20 mg 07/19/24 10:00 07/22/24 08:42 Benazepril Hcl 10 Mg Tablet PO 08/18/24 09:59 20 mg DAILY CAROAL Administration Cholecalciferol 1,000 unit 07/19/24 10:00 07/22/24 08:42 Cholecalciferol (Vitamin D3) 1000 Unit Tablet PO 08/18/24 09:59 1,000 unit DAILY CAROLA Administration Docusate Sodium 100 mg 07/21/24 15:35 07/21/24 16:11 Docusate Sodium 100 Mg Capsule PO 08/20/24 15:34 100 mg BIDPRN PRN Administration CONSTIPATION Escitalopram Oxalate 10 mg 07/19/24 10:00 07/22/24 08:42 Escitalopram Oxalate 10 Mg Tablet PO 08/18/24 09:59 10 mg DAILY CAROLA Administration Ferrous Sulfate 325 mg 07/19/24 10:00 07/22/24 08:44 Ferrous Sulfate 325 Mg Tablet PO 08/18/24 09:59 325 mg DAILY CAROLA Administration Hydrochlorothiazide 25 mg 07/19/24 10:00 07/22/24 08:43 Hydrochlorothiazide 25 Mg Tablet PO 08/18/24 09:59 25 mg DAILY CAROLA Administration Hydromorphone HCl 0.5 mg 07/18/24 14:37 07/22/24 00:04 Hydromorphone 1 Mg/1ml Inj IV 07/25/24 12:00 0.5 mg Q4H PRN PRN Administration PAIN Insulin Human Lispro 0 unit 07/20/24 16:54 07/22/24 08:54 Insulin Lispro 1 Unit SQ 08/19/24 16:53 3 unit UD PRN Administration HYPERGLYCEMIA Magnesium Oxide 200 mg 07/19/24 10:00 07/22/24 08:43 Magnesium Oxide 400 Mg Tablet PO 08/18/24 09:59 200 mg DAILY CAROLA Administration Melatonin 3 mg 07/21/24 10:17 07/21/24 21:03 Melatonin 3 Mg Tablet PO 08/20/24 10:16 3 mg HS PRN PRN Administration INSOMNIA Miscellaneous Information 1 each 07/18/24 15:15 Medication Intervention 1 Each Each 08/17/24 15:14 .RN TO CHECK CAROLA Nitroglycerin 0.4 mg 07/18/24 14:41 Nitroglycerin 0.4 Mg Tablet Bottle SL 08/17/24 14:40 Q12H PRN PRN CHEST PAIN Ondansetron HCl 4 mg 07/18/24 14:37 Ondansetron Hcl 4 Mg/2 Ml Vial IV 08/17/24 14:36 Q6H PRN PRN NAUSEA/VOMITING Pantoprazole Sodium 40 mg 07/19/24 10:00 07/22/24 08:43 Protonix (Pantoprazole) 40 Mg Tablet PO 08/18/24 09:59 40 mg DAILY CAROLA Administration Discontinued Medications Generic Name Dose Route Start Last Admin Trade Name Jean Pierreq PRN Reason Stop Dose Admin Acetaminophen 1,000 mg 07/20/24 06:00 07/20/24 06:20 Acetaminophen 500 Mg Tablet PO 07/20/24 06:01 1,000 mg 2HRPRIOR ONE Administration Bupivacaine HCl/Epinephrine Bitart Confirm 07/20/24 13:50 Bupivacaine Hcl/Epinephrine 10 Ml Vial Administered 07/20/24 13:51 Dose 30 ml .ROUTE .STK-MED ONE Celecoxib 200 mg 07/20/24 06:00 07/20/24 06:19 Celecoxib 100 Mg Capsule PO 07/20/24 06:01 200 mg 2HRPRIOR ONE Administration Dexamethasone 8 mg 07/20/24 06:00 07/20/24 06:20 Dexamethasone 4 Mg Tablet PO 07/20/24 06:01 8 mg 2HRPRIOR ONE Administration Dexamethasone Sodium Phosphate Confirm 07/20/24 08:23 Dexamethasone Sodium Phosphate 4 Mg/Ml Vial Administered 07/20/24 08:24 Dose 8 mg .ROUTE .STK-MED ONE Enoxaparin Sodium 30 mg 07/20/24 20:00 07/22/24 08:42 Enoxaparin Sodium 30 Mg/0.3 Ml Syringe SQ 07/22/24 08:01 30 mg Q12H CAROLA Administration Fentanyl Citrate Confirm 07/20/24 08:23 Fentanyl Citrate 100 Mcg/2 Ml* Vial Administered 07/20/24 08:24 Dose 100 mcg .ROUTE .STK-MED ONE Fentanyl Citrate Confirm 07/20/24 10:02 Fentanyl Citrate 100 Mcg/2 Ml* Vial Administered 07/20/24 10:03 Dose 100 mcg .ROUTE .STK-MED ONE Gabapentin 300 mg 07/20/24 06:00 07/20/24 06:19 Gabapentin 300 Mg Capsule PO 07/20/24 06:01 300 mg 2HRPRIOR ONE Administration Sodium Chloride Confirm 07/19/24 08:22 Sodium Chloride 0.9% 500 Ml Administered 07/19/24 08:23 Dose 500 mls @ ud IV .STK-MED ONE Sodium Chloride Confirm 07/19/24 12:38 Sodium Chloride 0.9% 500 Ml Administered 07/19/24 12:39 Dose 500 mls @ ud IV .STK-MED ONE Vancomycin HCl 1 gm in 200 mls @ 125 mls/hr 07/20/24 06:00 07/20/24 06:20 Vancomycin 1 Gram/200 Ml Bag IV 07/20/24 07:35 125 mls/hr ONCE ONE Administration Sodium Chloride 1,000 mls @ 30 mls/hr 07/20/24 06:00 07/22/24 06:47 Sodium Chloride 0.9% 1000 Ml IV 08/19/24 05:59 Not Given .Q24H CAROLA KVO Vancomycin HCl 1 gm in 200 mls @ 133.333 mls/hr 07/20/24 22:00 07/21/24 10:08 Vancomycin 1 Gram/200 Ml Bag IV 07/21/24 11:29 133.333 mls/hr Q12HT CAROLA Administration Insulin Human Lispro 0 unit 07/18/24 14:37 Insulin Lispro 1 Unit SQ 08/17/24 14:36 UD PRN HYPERGLYCEMIA Ketorolac Tromethamine Confirm 07/20/24 08:23 Ketorolac Tromethamine 30 Mg/Ml Inj Administered 07/20/24 08:24 Dose 30 mg .ROUTE .STK-MED ONE Lidocaine HCl Confirm 07/20/24 08:23 Lidocaine - Mpf 2% 5 Ml Vial Administered 07/20/24 08:24 Dose 5 ml .ROUTE .STK-MED ONE Non-Formulary Medication 1 tab 07/19/24 10:00 Benazepril/Hydrochlorothiazide [Lotensin Hct 20-25 Mg Tablet] PO 08/18/24 09:59 DAILY CAROLA Ondansetron HCl Confirm 07/20/24 08:23 Ondansetron Hcl 4 Mg/2 Ml Vial Administered 07/20/24 08:24 Dose 4 mg .ROUTE .STK-MED ONE Propofol Confirm 07/20/24 08:23 Propofol 200 Mg/20 Ml Vial Administered 07/20/24 08:24 Dose 200 mg IV .STK-MED ONE Rocuronium [place] Confirm 07/20/24 08:23 Rocuronium [place] 50 Mg/5 Ml Vial Administered 07/20/24 08:24 Dose 50 mg IV .STK-MED ONE Sugammadex Sodium Confirm 07/20/24 08:23 Sugammadex Sodium 200 Mg/2 Ml Vial Administered 07/20/24 08:24 Dose 200 mg IV .STK-MED ONE Assessment/Plan (1) Trochanteric fracture of femur Current Visit: Yes Status: Acute Qualifiers: Qualified Code(s): S72.101D - Unspecified trochanteric fracture of right femur, subsequent encounter for closed fracture with routine healing Assessment & Plan: dressing change today, mepilex. cont ot and pt swing bed tomorrow monitor hgb cont TTWB status for 4 weeks Code(s): S72.109A - UNSP TROCHANTERIC FRACTURE OF UNSP FEMUR, INIT FOR CLOS FX (2) Pancytopenia Current Visit: Yes Status: Acute Code(s): D61.818 - OTHER PANCYTOPENIA
[2024-07-22] MEDS: GLYCERIN ADULT SUPPOSITORY RC ONE (11:00)
[2024-07-23 05:50] LABS: Absolute Neutrophil Ct (ANC) 3.16 x10^3/uL (1.56-6.13); BASOPHIL % 0.4 % (0.1-1.2); Basophil (Absolute #) 0.02 x10^3/uL (0.01-0.08); Eosinophil % 0.7 % (0.7-5.8); Eosinophil (Absolute #) 0.03 x10^3/uL (0.04-0.36); Hematocrit 32.7 % (34.1-44.9); IMMATURE GRAN # 0.02 x10^3u/L (0.001-0.031); IMMATURE GRAN % 0.4 % (0.001-0.429); Lymphocyte (Absolute #) 0.87 x10^3/uL (1.18-3.74); Lymphocytes % 19.3 % (19.3-51.7); Mean Corpuscular Hemoglobin 24.2 pg (25.6-32.2); Mean Corpuscular Hgb Concent. 30.6 g/dL (32.2-35.5); Monocyte (Absolute #) 0.41 x10^3/uL (0.24-0.86); Monocytes % 9.1 % (4.7-12.5); Neutrophil % 70.1 % (34.0-71.1); Platelet Count 80 x10^3/uL (182-369); Red Blood Count 4.14 x10^6/uL (3.93-5.22); Red Cell Distribution Width 20.8 % (11.7-14.4); White Blood Count 4.5 x10^3/uL (3.98-10.04)
[2024-07-23 06:28] LABS: Slide Review 1 YES
[2024-07-23 06:37] LABS: ALBUMIN 3.3 g/dL (3.5-5.0); BILIRUBIN,TOTAL 1.1 mg/dL (0.2-1.3); Calcium 8.9 mg/dL (8.4-10.2); Creatinine 1 0.51 mg/dL (0.52-1.04); EST GLOMERULAR FILTRATION RATE 98.5 ML/MIN; Potassium 3.4 mmol/L (3.5-5.1); Total Protein 5.7 g/dL (6.3-8.2)
[2024-07-23 07:55] VITALS: RESP 16
[2024-07-23] MEDS ORDERED: Narcan 0.4 MG/ML IV PRN (08:04)
[2024-07-23] MEDS: Klor Con PO ONE (08:12)
--- NOTE | 2024-07-23 08:57 | PCM.NOTE ---
Date and Time: 07/23/24 0852 Subjective Assessment: POD 3 ORIF hip No complaints, states hip feeling better Objective Exam General Appearance: alert Neurologic Exam: alert, oriented x 3, normal mood/affect Skin Exam: normal color, warm, dry Wound Assessment: Skin/Wound Assessment Wound/Incision Assessment Start: 07/19/24 20:00 Text: Status: Active Freq: Q4H Protocol: Document 07/23/24 04:00 MM (Rec: 07/23/24 04:14 MM [id number]) Wound/Incision Assessment Right Hip Wound Assessment Shift Assessment Wound Type SURGICAL INCISIONS Dressing Status Dry & Intact Drainage Amount Minimal Drainage Description shadowing noted Primary Dressing mepilex Comment minimal shadowing noted on dressing Wound Photo Photo Taken No Extremity Exam: other (neg evelio, able to flex and extend toes and ankles) Objective Data Vital Signs: Vital Signs - 24 hr Temp Pulse Resp BP Pulse Ox 07/23/24 07:54 97.7 F 83 16 163/69 92 L 07/23/24 04:00 97.6 F 69 18 136/72 96 07/23/24 00:00 18 07/22/24 23:18 97.7 F 80 18 151/67 95 07/22/24 20:00 97.3 F 74 20 146/66 96 07/22/24 16:00 97.9 F 79 16 125/68 96 07/22/24 12:00 16 07/22/24 11:32 97.6 F 75 16 130/60 94 L Pain Assessment - Last Documented Pain Intensity 2 Pain Scale Used 0-10 Pain Scale Intake and Output: Intake & Output 07/20/24 07/21/24 07/22/24 07/23/24 11:59 11:59 11:59 11:59 Intake Total 2180 2491 3000 1720 Output Total 1550 1325 1100 2400 Balance 630 1166 1900 -680 Weight 90.8 kg 90.6 kg 91 kg 91 kg Lab Results: Lab Results-Last 24 Hours 07/22/24 07/22/24 07/22/24 Range/Units 11:30 16:31 22:10 WBC (3.98-10.04) x10^3/uL RBC (3.93-5.22) x10^6/uL Hgb (11.2-15.7) g/dL Hct (34.1-44.9) % MCV (79.4-94.8) fL MCH (25.6-32.2) pg MCHC (32.2-35.5) g/dL RDW (11.7-14.4) % Plt Count (182-369) x10^3/uL MPV (9.4-12.3) fL Gran % (34.0-71.1) % Immature Gran % (Auto) (0.001-0.429) % Nucleat RBC Rel Count (0.00-0.2) % Eos # (Auto) (0.04-0.36) x10^3/uL Immature Gran # (Auto) (0.001-0.031) x10^3u/L Absolute Lymphs (auto) (1.18-3.74) x10^3/uL Absolute Monos (auto) (0.24-0.86) x10^3/uL Absolute Nucleated RBC (0.00-0.012) x10^3u/L Lymphocytes % (19.3-51.7) % Monocytes % (4.7-12.5) % Eosinophils % (0.7-5.8) % Basophils % (0.1-1.2) % Absolute Granulocytes (1.56-6.13) x10^3/uL Basophils # (0.01-0.08) x10^3/uL Sodium (135-145) mmol/L Potassium (3.5-5.1) mmol/L Chloride (98-107) mmol/L Carbon Dioxide (22-30) mmol/L Anion Gap (5-15) MEQ/L BUN (7-17) mg/dL Creatinine (0.52-1.04) mg/dL Estimated GFR ML/MIN Glucose (74-106) mg/dL POC Glucometer 187 H 181 H 181 H (74 to 106) mg/dL Calcium (8.4-10.2) mg/dL Total Bilirubin (0.2-1.3) mg/dL AST (14-36) U/L ALT (0-35) U/L Alkaline Phosphatase (38-126) U/L Serum Total Protein (6.3-8.2) g/dL Albumin (3.5-5.0) g/dL Slides for Path Review 07/23/24 07/23/24 07/23/24 Range/Units 04:30 04:30 07:31 WBC 4.5 (3.98-10.04) x10^3/uL RBC 4.14 (3.93-5.22) x10^6/uL Hgb 10.0 L (11.2-15.7) g/dL Hct 32.7 L (34.1-44.9) % MCV 79.0 L (79.4-94.8) fL MCH 24.2 L (25.6-32.2) pg MCHC 30.6 L (32.2-35.5) g/dL RDW 20.8 H (11.7-14.4) % Plt Count 80 L (182-369) x10^3/uL MPV 11.0 (9.4-12.3) fL Gran % 70.1 (34.0-71.1) % Immature Gran % (Auto) 0.4 (0.001-0.429) % Nucleat RBC Rel Count 0.0 (0.00-0.2) % Eos # (Auto) 0.03 L (0.04-0.36) x10^3/uL Immature Gran # (Auto) 0.02 (0.001-0.031) x10^3u/L Absolute Lymphs (auto) 0.87 L (1.18-3.74) x10^3/uL Absolute Monos (auto) 0.41 (0.24-0.86) x10^3/uL Absolute Nucleated RBC 0.00 (0.00-0.012) x10^3u/L Lymphocytes % 19.3 (19.3-51.7) % Monocytes % 9.1 (4.7-12.5) % Eosinophils % 0.7 (0.7-5.8) % Basophils % 0.4 (0.1-1.2) % Absolute Granulocytes 3.16 (1.56-6.13) x10^3/uL Basophils # 0.02 (0.01-0.08) x10^3/uL Sodium 139 (135-145) mmol/L Potassium 3.4 L (3.5-5.1) mmol/L Chloride 103 (98-107) mmol/L Carbon Dioxide 27 (22-30) mmol/L Anion Gap 12.0 (5-15) MEQ/L BUN 12 (7-17) mg/dL Creatinine 0.51 L (0.52-1.04) mg/dL Estimated GFR 98.5 ML/MIN Glucose 166 H (74-106) mg/dL POC Glucometer 187 H (74 to 106) mg/dL Calcium 8.9 (8.4-10.2) mg/dL Total Bilirubin 1.10 (0.2-1.3) mg/dL AST 41 H (14-36) U/L ALT 31 (0-35) U/L Alkaline Phosphatase 130 H (38-126) U/L Serum Total Protein 5.7 L (6.3-8.2) g/dL Albumin 3.3 L (3.5-5.0) g/dL Slides for Path Review YES Medications: Medications Generic Name Dose Route Start Last Admin Trade Name Freq PRN Reason Stop Dose Admin Acetaminophen 650 mg 07/18/24 14:37 Acetaminophen 325 Mg Tablet PO 08/17/24 14:36 Q4H PRN PRN PAIN, FEVER, HEADACHE Hydrocodone Bitart/Acetaminophen 1 tab 07/18/24 14:37 07/22/24 22:16 Hydrocodone/Apap 5/325 1 Tab Tablet PO 07/25/24 12:00 1 tab Q4H PRN PRN Administration PAIN Aspirin 325 mg 07/22/24 10:00 07/22/24 08:54 Aspirin 325 Mg Tablet.Ec PO 08/21/24 09:59 325 mg QAM CAROLA Administration Benazepril HCl 20 mg 07/19/24 10:00 07/22/24 08:42 Benazepril Hcl 10 Mg Tablet PO 08/18/24 09:59 20 mg DAILY CAROLA Administration Cholecalciferol 1,000 unit 07/19/24 10:00 07/22/24 08:42 Cholecalciferol (Vitamin D3) 1000 Unit Tablet PO 08/18/24 09:59 1,000 unit DAILY CAROLA Administration Docusate Sodium 100 mg 07/21/24 15:35 07/23/24 06:54 Docusate Sodium 100 Mg Capsule PO 08/20/24 15:34 100 mg BIDPRN PRN Administration CONSTIPATION Escitalopram Oxalate 10 mg 07/19/24 10:00 07/22/24 08:42 Escitalopram Oxalate 10 Mg Tablet PO 08/18/24 09:59 10 mg DAILY CAROLA Administration Ferrous Sulfate 325 mg 07/19/24 10:00 07/22/24 08:44 Ferrous Sulfate 325 Mg Tablet PO 08/18/24 09:59 325 mg DAILY CAROLA Administration Hydrochlorothiazide 25 mg 07/19/24 10:00 07/22/24 08:43 Hydrochlorothiazide 25 Mg Tablet PO 08/18/24 09:59 25 mg DAILY CAROLA Administration Hydromorphone HCl 0.5 mg 07/18/24 14:37 07/22/24 00:04 Hydromorphone 1 Mg/1ml Inj IV 07/25/24 12:00 0.5 mg Q4H PRN PRN Administration PAIN Insulin Human Lispro 0 unit 07/20/24 16:54 07/23/24 08:18 Insulin Lispro 1 Unit SQ 08/19/24 16:53 3 unit UD PRN Administration HYPERGLYCEMIA Magnesium Oxide 200 mg 07/19/24 10:00 07/22/24 08:43 Magnesium Oxide 400 Mg Tablet PO 08/18/24 09:59 200 mg DAILY CAROLA Administration Melatonin 3 mg 07/21/24 10:17 07/21/24 21:03 Melatonin 3 Mg Tablet PO 08/20/24 10:16 3 mg HS PRN PRN Administration INSOMNIA Miscellaneous Information 1 each 07/18/24 15:15 Medication Intervention 1 Each Each 08/17/24 15:14 .RN TO CHECK CAROLA Naloxone HCl 0.4 mg 07/23/24 08:04 Naloxone Hcl 0.4 Mg/Ml Ml IV 08/22/24 08:03 PRN PRN RESPIRATORY DEPRESSION Nitroglycerin 0.4 mg 07/18/24 14:41 Nitroglycerin 0.4 Mg Tablet Bottle SL 08/17/24 14:40 Q12H PRN PRN CHEST PAIN Ondansetron HCl 4 mg 07/18/24 14:37 Ondansetron Hcl 4 Mg/2 Ml Vial IV 08/17/24 14:36 Q6H PRN PRN NAUSEA/VOMITING Pantoprazole Sodium 40 mg 07/19/24 10:00 07/22/24 08:43 Protonix (Pantoprazole) 40 Mg Tablet PO 08/18/24 09:59 40 mg DAILY CAROLA Administration Discontinued Medications Generic Name Dose Route Start Last Admin Trade Name Osmani PRN Reason Stop Dose Admin Acetaminophen 1,000 mg 07/20/24 06:00 07/20/24 06:20 Acetaminophen 500 Mg Tablet PO 07/20/24 06:01 1,000 mg 2HRPRIOR ONE Administration Bupivacaine HCl/Epinephrine Bitart Confirm 07/20/24 13:50 Bupivacaine Hcl/Epinephrine 10 Ml Vial Administered 07/20/24 13:51 Dose 30 ml .ROUTE .STK-MED ONE Celecoxib 200 mg 07/20/24 06:00 07/20/24 06:19 Celecoxib 100 Mg Capsule PO 07/20/24 06:01 200 mg 2HRPRIOR ONE Administration Dexamethasone 8 mg 07/20/24 06:00 07/20/24 06:20 Dexamethasone 4 Mg Tablet PO 07/20/24 06:01 8 mg 2HRPRIOR ONE Administration Dexamethasone Sodium Phosphate Confirm 07/20/24 08:23 Dexamethasone Sodium Phosphate 4 Mg/Ml Vial Administered 07/20/24 08:24 Dose 8 mg .ROUTE .STK-MED ONE Enoxaparin Sodium 30 mg 07/20/24 20:00 07/22/24 08:42 Enoxaparin Sodium 30 Mg/0.3 Ml Syringe SQ 07/22/24 08:01 30 mg Q12H CAROLA Administration Fentanyl Citrate Confirm 07/20/24 08:23 Fentanyl Citrate 100 Mcg/2 Ml* Vial Administered 07/20/24 08:24 Dose 100 mcg .ROUTE .STK-MED ONE Fentanyl Citrate Confirm 07/20/24 10:02 Fentanyl Citrate 100 Mcg/2 Ml* Vial Administered 07/20/24 10:03 Dose 100 mcg .ROUTE .STK-MED ONE Gabapentin 300 mg 07/20/24 06:00 07/20/24 06:19 Gabapentin 300 Mg Capsule PO 07/20/24 06:01 300 mg 2HRPRIOR ONE Administration Glycerin 1 supp.rect 07/22/24 11:00 07/22/24 11:00 Glycerin 1 Supp.Rect Adult RC 07/22/24 11:01 1 supp.rect ONCE ONE Administration Sodium Chloride Confirm 07/19/24 08:22 Sodium Chloride 0.9% 500 Ml Administered 07/19/24 08:23 Dose 500 mls @ ud IV .STK-MED ONE Sodium Chloride Confirm 07/19/24 12:38 Sodium Chloride 0.9% 500 Ml Administered 07/19/24 12:39 Dose 500 mls @ ud IV .STK-MED ONE Vancomycin HCl 1 gm in 200 mls @ 125 mls/hr 07/20/24 06:00 07/20/24 06:20 Vancomycin 1 Gram/200 Ml Bag IV 07/20/24 07:35 125 mls/hr ONCE ONE Administration Sodium Chloride 1,000 mls @ 30 mls/hr 07/20/24 06:00 07/22/24 12:21 Sodium Chloride 0.9% 1000 Ml IV 08/19/24 05:59 Not Given .Q24H [facility]OLA KVO Vancomycin HCl 1 gm in 200 mls @ 133.333 mls/hr 07/20/24 22:00 07/21/24 10:08 Vancomycin 1 Gram/200 Ml Bag IV 07/21/24 11:29 133.333 mls/hr Q12HT [facility] Administration Insulin Human Lispro 0 unit 07/18/24 14:37 Insulin Lispro 1 Unit SQ 08/17/24 14:36 UD PRN HYPERGLYCEMIA Ketorolac Tromethamine Confirm 07/20/24 08:23 Ketorolac Tromethamine 30 Mg/Ml Inj Administered 07/20/24 08:24 Dose 30 mg .ROUTE .STK-MED ONE Lidocaine HCl Confirm 07/20/24 08:23 Lidocaine - Mpf 2% 5 Ml Vial Administered 07/20/24 08:24 Dose 5 ml .ROUTE .STK-MED ONE Non-Formulary Medication 1 tab 07/19/24 10:00 Benazepril/Hydrochlorothiazide [Lotensin Hct 20-25 Mg Tablet] PO 08/18/24 09:59 DAILY [facility] Ondansetron HCl Confirm 07/20/24 08:23 Ondansetron Hcl 4 Mg/2 Ml Vial Administered 07/20/24 08:24 Dose 4 mg .ROUTE .STK-MED ONE Potassium Chloride 20 meq 07/23/24 08:02 07/23/24 08:12 Potassium Chloride Tab 10 Meq Tab PO 07/23/24 08:03 20 meq STAT ONE Administration Propofol Confirm 07/20/24 08:23 Propofol 200 Mg/20 Ml Vial Administered 07/20/24 08:24 Dose 200 mg IV .STK-MED ONE Rocuronium [place] Confirm 07/20/24 08:23 Rocuronium [place] 50 Mg/5 Ml Vial Administered 07/20/24 08:24 Dose 50 mg IV .STK-MED ONE Sugammadex Sodium Confirm 07/20/24 08:23 Sugammadex Sodium 200 Mg/2 Ml Vial Administered 07/20/24 08:24 Dose 200 mg IV .STK-MED ONE Assessment/Plan (1) Trochanteric fracture of femur Current Visit: Yes Status: Acute Qualifiers: Encounter type: subsequent encounter Fracture type: closed Laterality: right Fracture healing: with routine healing Qualified Code(s): S72.101D - Unspecified trochanteric fracture of right femur, subsequent encounter for closed fracture with routine healing Assessment & Plan: POD 3 orif hip fracture with claw, sideplate device. doing well anemia cont pt and ot, TTWB cont to monitor hgb/hct. Code(s): S72.109A - UNSP TROCHANTERIC FRACTURE OF UNSP FEMUR, INIT FOR CLOS FX (2) Pancytopenia Current Visit: Yes Status: Acute Code(s): D61.818 - OTHER PANCYTOPENIA
[2024-07-23 11:06] LABS: IFOB TEST RESULTS POSITIVE (NEGATIVE)
--- NOTE | 2024-07-23 11:48 | OP ---
SURGERY DATE/TIME: 07/20/2024 [id number] PREOPERATIVE DIAGNOSIS: Fracture right hip, intertrochanteric. POSTOPERATIVE DIAGNOSIS: Fracture right hip, intertrochanteric. PROCEDURE: Open reduction and internal fixation. SURGEON: Jeremy Gallo MD INDICATIONS: This patient fell a week ago and was seen here at [facility] in the ER. She had a CT scan done of right hip and was admitted overnight. Initial diagnosis was greater trochanteric fracture. She was sent home, she then came back to the hospital yesterday with worsening hip pain. She again went to the ED and CT scan was repeated. This time, the CT showed an intertrochanteric extension to the medial neck. Therefore, she was admitted for surgical care. We discussed treatment options and different methods of fixation and I felt that trochanteric fixation was needed in addition to the neck fixation. Rather than insert an intramedullary device, I recommended that we do plate fixation with addition of a trochanteric claw. Consent was obtained. DESCRIPTION OF PROCEDURE AND FINDINGS: Patient was seen preoperatively. Operative limb was identified. The plan was reviewed. She was then taken to the operating room. She was given intravenous vancomycin 1 g. She was placed under general anesthesia and positioned onto the fracture table. We placed the right leg in traction. The left leg was flexed, abducted, and placed on a padded leg rest. C-arm was brought in and we used this to check fracture alignment. We then performed sterile prep and drape. Following this, we created a longitudinal incision through skin and subcutaneous tissue. The IT band was incised longitudinally. We then incised the vastus lateralis along the posterior border. This muscle was pulled anteriorly. A guide pin with 140-degree angled guide was then drilled into the femoral head. Once this was done, we measured the pin and selected a 105 mm screw and then set the combination reamer to 105 mm. Following reaming, we tapped the hole and then inserted the 105 mm lag screw. A Jose Cruz plate was then advanced over the lag screw. The plate was impacted against the lateral femur and secured with two cortical screws. A claw device was then brought into the field. Two cables were placed through the claw. We passed the cables around the medial femur. The claw was then advanced proximally and advanced as far medially as possible to engage as much trochanteric bone as possible. We then impacted it down and secured the cables. The wound was then irrigated and closed in layers. We closed the vastus lateralis with 0 Vicryl running. Fascia reuben was closed with 0 Vicryl interrupted. Subcutaneous tissue was closed with 2-0 Vicryl and skin with rashid. Sterile dressings were applied. Patient tolerated the procedure well and was taken to the recovery room.
[2024-07-23 12:33] VITALS: BP 165/74; PULSE 67; TEMP 97.9; O2SAT 94
--- NOTE | 2024-07-23 13:56 | PCM.DS ---
Discharge Summary Date of Admission: 07/19/24 04:57 Date of Discharge: 07/23/24 Admitting Physician: BHARAT CORTES MD Consults: Consults on Case 07/18/24 15:05 Consult Ortho ROUTINE Primary Care Provider: NUBIA QUINONEZ Allergies Allergies Penicillins Allergy (Verified 07/18/24 10:16) Sulfa (Sulfonamide Antibiotics) Allergy (Verified 07/18/24 10:16) Hospital Summary - Hospital Course Hospital Course: 07/23/24, the patient is post-operative day 3 following surgical repair of a right trochanteric fracture and continues to recover well. She reports well- controlled pain at 2/10 and is participating in physical therapy with good progress. Her hemoglobin is stable at 10.0 following recent transfusions, and potassium was noted to be low at 3.4, for which replacement has been provided. A positive stool occult test was noted, and she will require outpatient follow-up for a colonoscopy to evaluate for potential gastrointestinal bleeding, particularly in the context of recent pancytopenia and anemia. She remains clinically stable, denies any dizziness, chest pain, shortness of breath, or other new complaints, and is agreeable to transfer to a swing bed for continued rehabilitation, which is planned for today. - Vitals & Intake/Output Vital Signs: Vital Signs Temperature 97.9 F 07/23/24 12:00 Pulse Rate 67 07/23/24 12:00 Respiratory Rate 16 07/23/24 12:00 Blood Pressure 165/74 07/23/24 12:00 O2 Sat by Pulse Oximetry 94 L 07/23/24 12:00 Intake & Output: Intake & Output 07/21/24 07/22/24 07/23/24 07/24/24 11:59 11:59 11:59 11:59 Intake Total 2491 3000 1840 120 Output Total 1325 1100 2400 Balance 1166 1900 -560 120 Weight 90.6 kg 91 kg 91 kg - Lab Result Diagrams: 07/23/24 04:30 07/23/24 04:30 Lab Results-Last 24 Hrs: Lab Results-Last 24 Hours 07/22/24 07/22/24 07/23/24 Range/Units 16:31 22:10 04:30 WBC 4.5 (3.98-10.04) x10^3/uL RBC 4.14 (3.93-5.22) x10^6/uL Hgb 10.0 L (11.2-15.7) g/dL Hct 32.7 L (34.1-44.9) % MCV 79.0 L (79.4-94.8) fL MCH 24.2 L (25.6-32.2) pg MCHC 30.6 L (32.2-35.5) g/dL RDW 20.8 H (11.7-14.4) % Plt Count 80 L (182-369) x10^3/uL MPV 11.0 (9.4-12.3) fL Gran % 70.1 (34.0-71.1) % Immature Gran % (Auto) 0.4 (0.001-0.429) % Nucleat RBC Rel Count 0.0 (0.00-0.2) % Eos # (Auto) 0.03 L (0.04-0.36) x10^3/uL Immature Gran # (Auto) 0.02 (0.001-0.031) x10^3u/L Absolute Lymphs (auto) 0.87 L (1.18-3.74) x10^3/uL Absolute Monos (auto) 0.41 (0.24-0.86) x10^3/uL Absolute Nucleated RBC 0.00 (0.00-0.012) x10^3u/L Lymphocytes % 19.3 (19.3-51.7) % Monocytes % 9.1 (4.7-12.5) % Eosinophils % 0.7 (0.7-5.8) % Basophils % 0.4 (0.1-1.2) % Absolute Granulocytes 3.16 (1.56-6.13) x10^3/uL Basophils # 0.02 (0.01-0.08) x10^3/uL Sodium (135-145) mmol/L Potassium (3.5-5.1) mmol/L Chloride (98-107) mmol/L Carbon Dioxide (22-30) mmol/L Anion Gap (5-15) MEQ/L BUN (7-17) mg/dL Creatinine (0.52-1.04) mg/dL Estimated GFR ML/MIN Glucose (74-106) mg/dL POC Glucometer 181 H 181 H (74 to 106) mg/dL Calcium (8.4-10.2) mg/dL Total Bilirubin (0.2-1.3) mg/dL AST (14-36) U/L ALT (0-35) U/L Alkaline Phosphatase (38-126) U/L Serum Total Protein (6.3-8.2) g/dL Albumin (3.5-5.0) g/dL Stl Occult Blood (IFOB) (NEGATIVE) Slides for Path Review YES 07/23/24 07/23/24 07/23/24 Range/Units 04:30 07:31 09:26 WBC (3.98-10.04) x10^3/uL RBC (3.93-5.22) x10^6/uL Hgb (11.2-15.7) g/dL Hct (34.1-44.9) % MCV (79.4-94.8) fL MCH (25.6-32.2) pg MCHC (32.2-35.5) g/dL RDW (11.7-14.4) % Plt Count (182-369) x10^3/uL MPV (9.4-12.3) fL Gran % (34.0-71.1) % Immature Gran % (Auto) (0.001-0.429) % Nucleat RBC Rel Count (0.00-0.2) % Eos # (Auto) (0.04-0.36) x10^3/uL Immature Gran # (Auto) (0.001-0.031) x10^3u/L Absolute Lymphs (auto) (1.18-3.74) x10^3/uL Absolute Monos (auto) (0.24-0.86) x10^3/uL Absolute Nucleated RBC (0.00-0.012) x10^3u/L Lymphocytes % (19.3-51.7) % Monocytes % (4.7-12.5) % Eosinophils % (0.7-5.8) % Basophils % (0.1-1.2) % Absolute Granulocytes (1.56-6.13) x10^3/uL Basophils # (0.01-0.08) x10^3/uL Sodium 139 (135-145) mmol/L Potassium 3.4 L (3.5-5.1) mmol/L Chloride 103 (98-107) mmol/L Carbon Dioxide 27 (22-30) mmol/L Anion Gap 12.0 (5-15) MEQ/L BUN 12 (7-17) mg/dL Creatinine 0.51 L (0.52-1.04) mg/dL Estimated GFR 98.5 ML/MIN Glucose 166 H (74-106) mg/dL POC Glucometer 187 H (74 to 106) mg/dL Calcium 8.9 (8.4-10.2) mg/dL Total Bilirubin 1.10 (0.2-1.3) mg/dL AST 41 H (14-36) U/L ALT 31 (0-35) U/L Alkaline Phosphatase 130 H (38-126) U/L Serum Total Protein 5.7 L (6.3-8.2) g/dL Albumin 3.3 L (3.5-5.0) g/dL Stl Occult Blood (IFOB) POSITIVE A (NEGATIVE) Slides for Path Review 07/23/24 07/23/24 Range/Units 11:52 11:52 WBC (3.98-10.04) x10^3/uL RBC (3.93-5.22) x10^6/uL Hgb (11.2-15.7) g/dL Hct (34.1-44.9) % MCV (79.4-94.8) fL MCH (25.6-32.2) pg MCHC (32.2-35.5) g/dL RDW (11.7-14.4) % Plt Count (182-369) x10^3/uL MPV (9.4-12.3) fL Gran % (34.0-71.1) % Immature Gran % (Auto) (0.001-0.429) % Nucleat RBC Rel Count (0.00-0.2) % Eos # (Auto) (0.04-0.36) x10^3/uL Immature Gran # (Auto) (0.001-0.031) x10^3u/L Absolute Lymphs (auto) (1.18-3.74) x10^3/uL Absolute Monos (auto) (0.24-0.86) x10^3/uL Absolute Nucleated RBC (0.00-0.012) x10^3u/L Lymphocytes % (19.3-51.7) % Monocytes % (4.7-12.5) % Eosinophils % (0.7-5.8) % Basophils % (0.1-1.2) % Absolute Granulocytes (1.56-6.13) x10^3/uL Basophils # (0.01-0.08) x10^3/uL Sodium (135-145) mmol/L Potassium (3.5-5.1) mmol/L Chloride (98-107) mmol/L Carbon Dioxide (22-30) mmol/L Anion Gap (5-15) MEQ/L BUN (7-17) mg/dL Creatinine (0.52-1.04) mg/dL Estimated GFR ML/MIN Glucose (74-106) mg/dL POC Glucometer 178 H 178 H (74 to 106) mg/dL Calcium (8.4-10.2) mg/dL Total Bilirubin (0.2-1.3) mg/dL AST (14-36) U/L ALT (0-35) U/L Alkaline Phosphatase (38-126) U/L Serum Total Protein (6.3-8.2) g/dL Albumin (3.5-5.0) g/dL Stl Occult Blood (IFOB) (NEGATIVE) Slides for Path Review Micro Results-Entire Visit: Accuchecks Date 07/23/24 Date 07/23/24 Date 07/22/24 Time 12:32 Time 07:53 Time 16:36 - Procedures and Test Procedures and Tests throughout Hospitalization: Therapy Orders & Screens 07/18/24 13:58 PT Eval & Treat ( Order) ONCE Reason for Eval:: Hip fracture Diagnosis: Trochanteric fracture 07/19/24 16:08 EKG ROUTINE Comment: Diagnosis: TROCHANTERIC FX, ANEMIA, UNCONTROLED PAIN 07/23/24 10:20 OT Eval and Treat ( Order) ONCE Comment: Physician Instructions: Reason For Exam: Diagnosis: TROCHANTERIC FX, ANEMIA, UNCONTROLED PAIN Discharge Exam General Appearance: no apparent distress, alert Neurologic Exam: alert, oriented x 3, cooperative, normal mood/affect, nml cerebellar function, sensation nml, No motor deficits Eye Exam: PERRL, EOMI, eyes nml inspection Ears, Nose, Throat Exam: normal ENT inspection, pharynx normal, moist mucous membranes Neck Exam: normal inspection, non-tender, supple, full range of motion Respiratory Exam: normal breath sounds, lungs clear, No respiratory distress Cardiovascular Exam: regular rate/rhythm, normal heart sounds Gastrointestinal/Abdomen Exam: soft, No tenderness, No mass Pelvic Exam: deferred Rectal Exam: deferred Back Exam: normal inspection, normal range of motion, No CVA tenderness, No vertebral tenderness Extremity Exam: normal inspection, normal range of motion Skin Exam: normal color, warm, dry Wound Assessment: Skin/Wound Assessment Wound/Incision Assessment Start: 07/19/24 20:00 Text: Status: Active Freq: Q4H Protocol: Document 07/23/24 12:00 CWB (Rec: 07/23/24 12:46 CWB [id number]) Wound/Incision Assessment Right Hip Wound Assessment Shift Assessment Wound Type SURGICAL INCISIONS Dressing Status Dry & Intact Drainage Amount Minimal Drainage Description shadowing Primary Dressing mepilex Wound Photo Photo Taken No Final Diagnosis/Problem List - Final Discharge Diagnosis/Problem (1) Trochanteric fracture of femur Current Visit: Yes Status: Acute Assessment & Plan: - TX swing bed today - POD #3 - CBC, CMP reviewed - Ortho note reviewed and agree with plan of care - CBC, CMP reviewed - Radiology results reviewed Code(s): S72.109A - UNSP TROCHANTERIC FRACTURE OF UNSP FEMUR, INIT FOR CLOS FX (2) Pancytopenia Current Visit: Yes Status: Acute Assessment & Plan: -Occult stool + - will need OP f/u for colonoscopy -Ferrous sulfate started - will need OP hematology for evaluation/ iron infusions - CBC reviewed - Narcotic pain control Code(s): D61.818 - OTHER PANCYTOPENIA (3) Vitamin D deficiency Current Visit: Yes Status: Acute Assessment & Plan: -Vitamin D level reviewed at 25- will start supplementation at 1000 units daily- will need rechecked in 12 weeks for treatment response -Encouraged intake of vitamin D -rich food and safe sun exposure Code(s): E55.9 - VITAMIN D DEFICIENCY, UNSPECIFIED (4) Essential (primary) hypertension Current Visit: No Status: Chronic Assessment & Plan: -Continue home med benazepril/hctz - BP controlled Code(s): I10 - ESSENTIAL (PRIMARY) HYPERTENSION (5) Type 2 diabetes mellitus without complications Current Visit: No Status: Chronic Assessment & Plan: -ADA diet -SSI -A1c 7.36- controlled Code(s): E11.9 - TYPE 2 DIABETES MELLITUS WITHOUT COMPLICATIONS (6) Obesity (BMI 30-39.9) Current Visit: Yes Status: Chronic Assessment & Plan: - Advised ADA diet and exercise control Code(s): E66.9 - OBESITY, UNSPECIFIED (7) Depression Current Visit: Yes Status: Chronic Assessment & Plan: -Resume Lexapro Code(s): F32.A - DEPRESSION, UNSPECIFIED (8) HLD (hyperlipidemia) Current Visit: Yes Status: Chronic Assessment & Plan: -Patient does not appear to be on statin- continue OP regimen Code(s): E78.5 - HYPERLIPIDEMIA, UNSPECIFIED - Discharge Discharge Date: 07/23/24 (swing) Disposition: XFER OTHER Condition: Stable Prescriptions: New Ferrous Sulfate 325 mg [Feosol 325 mg] 325 mg PO DAILY #0 tablet Cholecalciferol (Vitamin D3) [Vitamin D] 1,000 unit PO DAILY tablet Continue Metformin HCl 500 mg PO BID Benazepril/Hydrochlorothiazide [Lotensin Hct 20-25 mg Tablet] 1 tab PO DAILY Magnesium Oxide [Mag-Oxide Magnesium] 250 mg PO DAILY Escitalopram Oxalate [Lexapro] 10 mg PO DAILY Potassium Gluconate 500 mg PO DAILY Acetaminophen 325 mg [Tylenol 325 mg] 500 mg PO Q6HPRN PRN PRN Reason: Mild To Moderate Pain Nitroglycerin 0.4 mg Tablet [Nitrostat 0.4 MG Tablet] 0.4 mg SL Q12H PRN PRN PRN Reason: Chest Pain Semaglutide [Ozempic] 0.25 mg SQ WEEKLY Hydrocodone/Acetaminophen [Hydrocodone-Acetamin 5-325 mg] 1 tab PO Q6HPRN PRN 3 Days #12 tablet MDD 4 PRN Reason: Pain Follow up with: ARTIE JAUREGUI MD [ACTIVE STAFF] NUBIA QUINONEZ NP [Primary Care Provider] - 07/26/24 9:00 am
== END 2024-07-23 15:50 | disposition swing bed (61) | DRG 481 ==
LOC: ED 10:01 → MED SURG 13:50 → OBSVTOIN 07-19 04:57
PROVIDERS: ADMIT Internal Medicine; ATTEND Internal Medicine
PROC: 0QS804Z Reposition Right Femoral Shaft with Internal Fixation Device, Open Approach (ICD-10-PCS; principal; 2024-07-20)
DX: S72.101A Unspecified trochanteric fracture of right femur, initial encounter for closed fracture (principal); D61.818 Other pancytopenia; E55.9 Vitamin D deficiency, unspecified; I10 Essential (primary) hypertension; E11.9 Type 2 diabetes mellitus without complications; E66.9 Obesity, unspecified; F32.A Depression, unspecified; E78.5 Hyperlipidemia, unspecified; D50.9 Iron deficiency anemia, unspecified; Z79.899 Other long term (current) drug therapy
CPT/HCPCS: 27269; 36415; 36430; 72192; 73502; 76000; 80053; 82274; 82306; 82607; 82728; 82746; 82947; 83036; 83540; 83550; 85014; 85018; 85025; 85045; 85046; 85610; 85730; 86850; 86900; 86901; 86922; 93005; 99221; 99285; C1713; G0378; J1100; J1171; J1650; J1817; J1885; J2405; J2704; J3010; P9016; Q3014; 97110-GP; A9270-GY; G0328; J3370

== ENCOUNTER 2024-07-23 13:22 | Inpatient (IN) | payer MEDICARE, OTHER ==
[2024-07-23] MEDS ORDERED: Zofran 4 MG/2 ML VIAL IV PRN (16:00)
[2024-07-23] MEDS ORDERED: MEDICATION INTERVENTION MC SCH (16:00)
[2024-07-23] MEDS ORDERED: Nitrostat 0.4 MG Tablet SL PRN (16:00)
[2024-07-23] MEDS ORDERED: Narcan 0.4 MG/ML IV PRN (16:00)
[2024-07-23] MEDS ORDERED: Hydromorphone 1 mg/ml Injection IV PRN (16:00)
[2024-07-23] MEDS: TYLENOL 325 MG PO PRN (17:00)
[2024-07-23] MEDS: NORCO 5/325 MG PO PRN (18:25)
[2024-07-23] MEDS: Aplisol ID ONE (18:43)
[2024-07-23] MEDS: HUMALOG SQ PRN (21:59)
[2024-07-23] MEDS: Docusate Sodium 100 MG PO PRN (21:59)
--- NOTE | 2024-07-24 09:05 | PCM.SB.HP ---
Swing Bed H&P - Acute Care H&P in SB Record Acute H&P in Swing Bed Medical Record & valid with no change: Yes - Acute Care H&P Revisions as follows Physical Exam Changes: 07/23/24, The patient is post-operative day 3 following surgical repair of a right trochanteric fracture and continues to recover well. She reports well- controlled pain at 2/10 and is participating in physical therapy with good progress. Her hemoglobin is stable at 10.0 following recent transfusions, and potassium was noted to be low at 3.4, for which replacement has been provided. A positive stool occult test was noted, and she will require outpatient follow-up for a colonoscopy to evaluate for potential gastrointestinal bleeding, particularly in the context of recent pancytopenia and anemia. She remains clinically stable, denies any dizziness, chest pain, shortness of breath, or other new complaints, and is agreeable to transfer to a swing bed for continued rehabilitation, which is planned for today. 07/24/24 Pt is POD #4 and admitted to swing bed. No changes to plan of care. Pt reports feeling fine and ready to be more active. Continue PT as planned. She denies any further concerns at this time. (1) Trochanteric fracture of femur Current Visit: Yes Status: Acute Assessment & Plan: - TX swing bed today 07/23 - POD #4 - CBC, CMP reviewed - Ortho note reviewed and agree with plan of care - CBC, CMP reviewed - Radiology results reviewed Code(s): S72.109A - UNSP TROCHANTERIC FRACTURE OF UNSP FEMUR, INIT FOR CLOS FX (2) Pancytopenia Current Visit: Yes Status: Acute Assessment & Plan: -Occult stool + - will need OP f/u for colonoscopy -Ferrous sulfate started - will need OP hematology for evaluation/ iron infusions - CBC reviewed - Narcotic pain control Code(s): D61.818 - OTHER PANCYTOPENIA (3) Vitamin D deficiency Current Visit: Yes Status: Acute Assessment & Plan: -Vitamin D level reviewed at 25- will start supplementation at 1000 units daily- will need rechecked in 12 weeks for treatment response -Encouraged intake of vitamin D -rich food and safe sun exposure Code(s): E55.9 - VITAMIN D DEFICIENCY, UNSPECIFIED (4) Essential (primary) hypertension Current Visit: No Status: Chronic Assessment & Plan: -Continue home med benazepril/hctz - BP controlled Code(s): I10 - ESSENTIAL (PRIMARY) HYPERTENSION (5) Type 2 diabetes mellitus without complications Current Visit: No Status: Chronic Assessment & Plan: -ADA diet -SSI -A1c 7.36- controlled Code(s): E11.9 - TYPE 2 DIABETES MELLITUS WITHOUT COMPLICATIONS (6) Obesity (BMI 30-39.9) Current Visit: Yes Status: Chronic Assessment & Plan: - Advised ADA diet and exercise control Code(s): E66.9 - OBESITY, UNSPECIFIED (7) Depression Current Visit: Yes Status: Chronic Assessment & Plan: -Resume Lexapro Code(s): F32.A - DEPRESSION, UNSPECIFIED (8) HLD (hyperlipidemia) Current Visit: Yes Status: Chronic Assessment & Plan: -Patient does not appear to be on statin- continue OP regimen Code(s): E78.5 - HYPERLIPIDEMIA, UNSPECIFIED General Appearance: no apparent distress Neurologic: alert, oriented x 3, cooperative, normal mood/affect, nml cerebellar function, nml station & gait, sensation nml Eye Exam: PERRL/EOMI, eyes nml inspection Ears, Nose, Throat Exam: normal ENT inspection, pharynx normal, moist mucous membranes Neck Exam: normal inspection, non-tender, supple, full range of motion Respiratory: normal breath sounds, lungs clear, No respiratory distress Cardiovascular: regular rate/rhythm, normal heart sounds, normal peripheral pulses Gastrointestinal: soft, normal bowel sounds, No tenderness, No mass Back Exam: normal inspection, normal range of motion, No CVA tenderness, No vertebral tenderness Extremity Exam: normal inspection, normal range of motion Skin Exam: normal color, warm, dry, No rash Lymphatic: No adenopathy - Acute Care ROS Revisions Constitutional: No Fever, No Chills Eyes (ROS): No Symptoms Ears, Nose, & Throat: No Symptoms Respiratory: No Cough, No Short Of Breath Cardiac: No Chest Pain, No Edema Abdominal/Gastrointestinal: No Abdominal Pain, No Nausea, No Vomiting, No Diarrhea Genitourinary Symptoms: No Dysuria Genitourinary Symptoms: No Dysuria Musculoskeletal: No Back Pain, No Neck Pain Skin: No Rash Neurological: No Dizziness, No Focal Weakness Psychological: No Symptoms Endocrine: No Symptoms Hematologic/Lymphatic: No Symptoms Immunological/Allergic: No Symptoms Telemedicine Encounter - Telemedicine Encounter Telemedicine Encounter: This was an in person visit.
[2024-07-24] MEDS: VITAMIN D PO SCH (09:56)
[2024-07-24] MEDS: Protonix 40MG Tablet PO SCH (09:56)
[2024-07-24] MEDS: Lotensin PO SCH (09:57)
[2024-07-24] MEDS: MAG-OX 400 PO SCH (09:57)
[2024-07-24] MEDS: Lexapro PO SCH (09:57)
[2024-07-24] MEDS: Ecotrin 325 MG PO SCH (09:57)
[2024-07-24] MEDS: hydroDIURIL 25 MG PO SCH (09:57)
[2024-07-24] MEDS: FEOSOL 325 MG PO SCH (09:58)
--- NOTE | 2024-07-24 09:59 | PCM.NOTE ---
Date and Time: 07/24/24949 Subjective Assessment: Postoperative day 4 repair right hip fracture Patient has been moved to a swing bed, has no complaints today. Minimal pain right hip. She is participating in physical therapy. Objective Exam Comments: 07/24/24 09:51 She is awake alert oriented, in no acute distress. She is sitting up in a chair at this time. Right hip exam reveals intact dressing with no evidence of drainage, no erythema. There is bruising in the posterior right thigh. Distal neurovascular status is normal. No pain in the hip with movement. No calf pain or tenderness 07/24/24 10:13 Objective Data Vital Signs: Vital Signs - 24 hr Temp Pulse Resp BP Pulse Ox 07/24/24 07:45 97.7 F 73 20 124/58 94 L 07/23/24 20:00 98.7 F 68 16 115/59 93 L 07/23/24 16:13 98.5 F 63 18 153/68 96 Pain Assessment - Last Documented Pain Intensity 4 Pain Scale Used 0-10 Pain Scale Intake and Output: Intake & Output 07/21/24 07/22/24 07/23/24 07/24/24 11:59 11:59 11:59 11:59 Intake Total 240 Balance 240 Weight 91 kg Lab Results: Lab Results-Last 24 Hours 07/23/24 07/24/24 Range/Units 21:42 07:26 POC Glucometer 173 H 140 H (74 to 106) mg/dL Medications: Medications Generic Name Dose Route Start Last Admin Trade Name Freq PRN Reason Stop Dose Admin Acetaminophen 650 mg 07/23/24 16:00 07/23/24 17:00 Acetaminophen 325 Mg Tablet PO 08/17/24 14:36 650 mg Q4H PRN PRN Administration PAIN, FEVER, HEADACHE Hydrocodone Bitart/Acetaminophen 1 tab 07/23/24 16:00 07/24/24 02:33 Hydrocodone/Apap 5/325 1 Tab Tablet PO 07/25/24 12:00 1 tab Q4H PRN PRN Administration PAIN Aspirin 325 mg 07/24/24 10:00 Aspirin 325 Mg Tablet.Ec PO 08/21/24 09:59 QAM CAROLA Benazepril HCl 20 mg 07/24/24 10:00 Benazepril Hcl 10 Mg Tablet PO 08/18/24 09:59 DAILY [facility]A Cholecalciferol 1,000 unit 07/24/24 10:00 Cholecalciferol (Vitamin D3) 1000 Unit Tablet PO 08/18/24 09:59 DAILY [facility] Docusate Sodium 100 mg 07/23/24 16:00 07/23/24 21:59 Docusate Sodium 100 Mg Capsule PO 08/20/24 15:34 100 mg BIDPRN PRN Administration CONSTIPATION Escitalopram Oxalate 10 mg 07/24/24 10:00 Escitalopram Oxalate 10 Mg Tablet PO 08/18/24 09:59 DAILY [facility] Ferrous Sulfate 325 mg 07/24/24 10:00 Ferrous Sulfate 325 Mg Tablet PO 08/18/24 09:59 DAILY [facility] Hydrochlorothiazide 25 mg 07/24/24 10:00 Hydrochlorothiazide 25 Mg Tablet PO 08/18/24 09:59 DAILY [facility] Hydromorphone HCl 0.5 mg 07/23/24 16:00 Hydromorphone 1 Mg/1ml Inj IV 07/25/24 12:00 Q4H PRN PRN PAIN Insulin Human Lispro 0 unit 07/23/24 16:00 07/23/24 21:59 Insulin Lispro 1 Unit SQ 08/19/24 16:53 3 unit UD PRN Administration HYPERGLYCEMIA Magnesium Oxide 200 mg 07/24/24 10:00 Magnesium Oxide 400 Mg Tablet PO 08/18/24 09:59 DAILY [facility] Melatonin 3 mg 07/23/24 16:00 Melatonin 3 Mg Tablet PO 08/20/24 10:16 HS PRN PRN INSOMNIA Miscellaneous Information 1 each 07/23/24 16:00 Medication Intervention 1 Each Each 08/17/24 15:14 .RN TO CHECK CAROLA Naloxone HCl 0.4 mg 07/23/24 16:00 Naloxone Hcl 0.4 Mg/Ml Ml IV 08/22/24 08:03 PRN PRN RESPIRATORY DEPRESSION Nitroglycerin 0.4 mg 07/23/24 16:00 Nitroglycerin 0.4 Mg Tablet Bottle SL 08/17/24 14:40 Q12H PRN PRN CHEST PAIN Ondansetron HCl 4 mg 07/23/24 16:00 Ondansetron Hcl 4 Mg/2 Ml Vial IV 08/17/24 14:36 Q6H PRN PRN NAUSEA/VOMITING Pantoprazole Sodium 40 mg 07/24/24 10:00 Protonix (Pantoprazole) 40 Mg Tablet PO 08/18/24 09:59 DAILY [facility] Discontinued Medications Generic Name Dose Route Start Last Admin Trade Name Freq PRN Reason Stop Dose Admin Tuberculin PPD 5 unit 07/23/24 16:00 07/23/24 18:43 Aplisol (Tuberculin,Purif.Prot.Deriv.) 5 Unit/0.1 Ml Ml ID 07/23/24 16:01 5 unit ONCE ONE Administration Multi-Disciplinary Progress Notes: Multi-Disciplinary Progress Notes 07/24/24 08:40 Case Management Note by Ledy San S/W ORTHO TO CLARIFY NEEDS FOR EVENTUAL DC FROM [facility] STATED S/W ORTHO TO CLARIFY NEEDS FOR EVENTUAL DC FROM [facility] STATED DAREK NEED REMOVED 2 WEEKS AFTER SURGERY AND FOLLOW UP XRAYS NEED DONE 4 WEEKS AFTER SURGERY PATIENT TO CONTINUE ASPIRIN X 4 WEEKS Initialized on 07/24/24 08:40 - END OF NOTE 07/23/24 16:35 OT Plan of Care Note by Arlene (L#[id number])Allyson OT Eval OT Inpatient Eval and POC Start: 07/23/24 16:00 Freq: ONCE Status: Complete Protocol: Created 07/23/24 16:02 CWB (Rec: 07/23/24 16:02 CWB [id number]) Document 07/23/24 16:25 IVY (Rec: 07/23/24 16:33 KA [id number]) OT Evaluation Subjective PATIENT IS AGREEABLE TO OT EVALUATION THIS DATE. History associated to fracture : Patient fell approximately 1 week ago where she followed up with ortho. She had a stable fracture and completed conservative treatment. On , she was unable to bear weight and transfer out of her recliner. Upon hospital admission, another fracture noted on imaging requiring surgical fixation. 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 She takes care of 2 dogs and recently moved to an apartment complex in [place]. Home set up includes ramp with handrails, tub/shower combo, and raised toilet seat. Equipment at Home Prior to Admission Clay Caster,Long handled shoe horn Home Setup Tub/Shower Combination Date 07/23/24 Feeding WFL Grooming WFL Comment SEATED Bathing Impaired Comment MOD ASSIST Dressing Impaired Comment UB: SBA LB: MOD ASSIST Toileting Impaired Comment CGA Bed Mobility Impaired Comment MIN ASSIST Toilet Transfers Impaired Comment MIN ASSIST Functional Transfers Impaired Comment CGA Range of Motion WFL Coordination WFL Functional Strength RIGHT UE: 4/5 MMT LEFT UE: 4/5 MMT Functional Endurance FAIR(+): TOLERATES APPROXIMATELY 25 MINUTES OF EVALUATION THIS DATE; APPROXIMATLEY 5 MINUTES OF STANDING, AND TOILETING (ADL) TASK. Cognition ALERT AND ORIENTED X 4 Pain 3/10 RIGHT HIP; REPORTS SIGNIFICANTLY LOWER PAIN RESPONSE POST SURGERY Objective Data/Standardized Assessment(s STANTON: 2/6 INDICATING HIGH ) LEVEL OF DEPENDENCE FOR ADLS ( REQUIRING MIN TO MOD ASSIST) OT Plan Of Care Date of Evaluation 07/23/24 Treatment Diagnosis R TROCHANTERIC FX Precaution/Orders as written TTWB; FALL RISK Teaching Recipient Patient Patient is Aware of Diagnosis and Yes Prognosis Patient is receptive to Plan of Care and Yes contributory towards OT goals Functional Problem List NATHANIEL PRESENTS WITH GENERALIZED WEAKNESS, INSTABILITY, AND INCREASED PAIN RESPONSE IN RIGHT HIP LIMITING INDEPENDENCE WITH I/ ADLS AND QUALITY OF LIFE. Therapuetic Interventions THERAPEUTIC EXERCISE, THERAPEUTIC ACTIVITY, SELF- CARE Functional Goals of Treatment 1) By 07/30/24, Patient will demonstrate independence with HEP, home modifications, a/e compliance, and discharge instructions to facilitate safe d/c home. 2) By 07/30/24, Patient will complete basic ADLS with set up assist and supervision in order to facilitate safe d/c home. 3 )By 07/30/24, Patient will complete functional transfers including toileting t/fs Mod Indep in order to facilitate safe d/c home. 4) By 07/30/24: Patient will increase bilateral UE strength to 4+/5 MMT in order to facilitate safety with use of FWW and awareness to TTWB status during functional tasks . Frequency/Duration 5X/WEEK Rehabilitation Potential for Goals/ Good Barriers to Progress Discharge Recommendations/Plan OT recommends patient to discharge home with possible HHT pending further progress throughout therapy. OT recommends DME and a/e (tub transfer bench, raised toilet seat with hand rails, sock-aid ) Comment *PATIENT REPORTS THAT SHE WILL SLEEP IN RECLINER UPON RETURN TO BED DUE TO SAFETY CONCERNS WITH TRANSFERRING IN AND OUT OF BED. Medical & Surgical History Past Medical History Yes Neurological History No Pertinent History ENT History Cataracts Endocrine History Diabetes Type II Respiratory History No Pertinent History Cardiac History High Cholesterol,Hypertension GI History No Pertinent History History No Pertinent History Female Reproductive Disorders No Pertinent History Musculoskeletal History No Pertinent History Psycho-Social History Depression Other Medical History fracture right hip 07/2024 Past Surgical History Yes Hx Anesthesia Reactions No Hx Malignant Hyperthermia No Neurological Surgical History No Pertinent History ENT Surgical History Cataract Surgery Respiratory Surgical History No Pertinent History Cardiac Surgical History No Pertinent History Gastrointestinal Surgical History No Pertinent History Genitourinary Surgical History No Pertinent History Female Surgical History Tubal Ligation Musculoskeletal Surgical History No Pertinent History Other Surgical History r wrist Alcohol None Drug Use none Hx Substance Use Treatment No OT Inpatient Eval and POC Start: 07/23/24 16:00 Freq: ONCE Status: Active Protocol: Created 07/23/24 16:02 CWB (Rec: 07/23/24 16:02 CWB [id number]) Initialized on 07/23/24 16:35 - END OF NOTE Assessment/Plan (1) Greater trochanter fracture Current Visit: No Status: Acute Qualifiers: Encounter type: initial encounter Fracture type: closed Fracture alignment: nondisplaced Laterality: right Qualified Code(s): S72.114A - Nondisplaced fracture of greater trochanter of right femur, initial encounter for closed fracture Assessment & Plan: Postoperative day 4 ORIF right hip, doing well Continue toe-touch weightbearing Staple removal on postoperative day 14 Follow-up in orthopedic clinic 4 weeks postoperatively for x-rays of right hip Continue physical therapy and Occupational Therapy Code(s): S72.113A - DISP FX OF GREATER TROCHANTER OF UNSP FEMUR, INIT
[2024-07-25] MEDS: NORCO 5/325 MG PO PRN (22:22)
[2024-07-26 05:33] LABS: Hematocrit 32.4 % (34.1-44.9); Hemoglobin 9.8 g/dL (11.2-15.7); Mean Cell Volume 79.4 fL (79.4-94.8); Mean Corpuscular Hgb Concent. 30.2 g/dL (32.2-35.5); Mean Platelet Volume 11.4 fL (9.4-12.3); Platelet Count 94 x10^3/uL (182-369); Red Blood Count 4.08 x10^6/uL (3.93-5.22); Red Cell Distribution Width 21.1 % (11.7-14.4); White Blood Count 5.1 x10^3/uL (3.98-10.04)
[2024-07-26 06:49] LABS: ALBUMIN 3.3 g/dL (3.5-5.0); ANION GAP 11.3 MEQ/L (5-15); BILIRUBIN,TOTAL 1.3 mg/dL (0.2-1.3); Calcium 8.8 mg/dL (8.4-10.2); Creatinine 1 0.52 mg/dL (0.52-1.04); Potassium 3.3 mmol/L (3.5-5.1); Total Protein 5.6 g/dL (6.3-8.2)
[2024-07-26 08:28] LABS: Slide Review YES
[2024-07-26] MEDS: Klor Con PO ONE (09:04)
--- NOTE | 2024-07-26 13:02 | PCM.NOTE ---
ORTHO Narrative Note ORTHO Narrative Note: The doctor was contacted by nursing staff due to concerns over drainage from the patient's right hip surgical wound; the patient has had significant amounts of yellow serous drainage on her dressings, and the dressing has required frequent changes. The patient was examined. The patient reports minimal right hip pain. The patient denies any signs or symptoms of infection. Examination of the right hip reveals the surgical incision to be intact; rashid are in place; there is generalized, resolving ecchymosis throughout the thigh; there is no erythema or rashes; old dressings reveal clear yellow serous drainage. The patient has a 2+ dorsalis pedis pulse; the patient's capillary refill is less than 2 seconds. Patient distal sensation is grossly intact to light touch. Given the amount of swelling and ecchymosis in the patient's right thigh after her right hip injury, the serous drainage is not unexpected. There is no evidence of infection at this time. The recommendation is to clean the wound with Betadine and for placement of a Prevena wound VAC to assist with wound healing. The Prevena wound VAC will be applied by physical therapy. The patient will continue to be monitored closely.
[2024-07-27] MEDS: TUCKS TP PRN (09:22)
[2024-07-28] MEDS: Acidophilus TABLET PO SCH (15:06)
[2024-07-29] MEDS: MELATONIN PO PRN (22:12)
[2024-07-30 04:49] LABS: Hematocrit 32.5 % (34.1-44.9); Hemoglobin 10.2 g/dL (11.2-15.7); Mean Cell Volume 80.2 fL (79.4-94.8); Mean Corpuscular Hemoglobin 25.2 pg (25.6-32.2); Mean Corpuscular Hgb Concent. 31.4 g/dL (32.2-35.5); Platelet Count 100 x10^3/uL (182-369); Red Blood Count 4.05 x10^6/uL (3.93-5.22); Red Cell Distribution Width 21.6 % (11.7-14.4); White Blood Count 4.6 x10^3/uL (3.98-10.04)
--- NOTE | 2024-07-30 04:52 | PCM.NOTE ---
Date and Time: 07/30/24 0448 Subjective Assessment: HPI: Ms. Miller is a 74-year-old female with a past medical history of type 2 diabetes mellitus, hypertension, hyperlipidemia, obesity, and depression who presented on 07/18/24 with worsening right hip pain. One week prior, she sustained a ground- level fall resulting in a comminuted, mildly displaced but overall nondisplaced fracture of the right greater trochanter, managed nonoperatively. While sitting on a barstool, she experienced acute exacerbation of hip pain without new trauma, rated as 10/10 with radiation to the back and right leg. CT pelvis revealed progression of the fracture with new intratrochanteric extension and no evidence of healing. She was kept [id number], and orthopedic con sultation was reinitiated. Orthopedic surgery was scheduled for 07/20/24 after evaluation. Preoperatively, she was found to have pancytopenia with hemoglobin 6.7 g/dL, and she received transfusions. A low vitamin D level was also identified and supplementation initiated. Following surgical repair on 07/20/24, she showed significant improvement in pain control and was able to participate in physical therapy. However, her postoperative course was notable for ongoing anemia requiring additional transfusions, and a positive stool occult blood test, prompting plans for outpatient colonoscopy and hematology follow-up. By post-op day 3 (07/23/24), she remained clinically stable with improved hemoglobin levels and agreed to transfer to swing bed for continued rehabilitation. On post-op day 4 (07/24/24), she endorsed feeling well and ready for increased activity but was noted to have significant yellow serous drainage from her surgical wound without signs of infection. Examination revealed intact incision with rashid in place, resolving thigh ecchymosis, no erythema, and good distal perfusion and sensation. A Prevena wound VAC was recommended 07/26/24 to remain for 7 days by ortho to assist with wound healing. 07/30/24: POD# 10. Endorses overall improvement today. She rates her right hip pain as 2/10 on the numerical pain scale. She notes mild erythema surrounding the wound vac site but reports that her pain has significantly improved since its placement. The patient expresses that she does not feel prepared for discharge at this time, citing concerns regarding her ability to manage independently at home and a desire to pursue continued rehabilitation services to optimize her recovery. - Review of Systems Constitutional: No Symptoms Eyes: No Symptoms Ears, Nose, & Throat: No Symptoms Respiratory: No Symptoms Cardiac: No Symptoms Abdominal/Gastrointestinal: No Symptoms Genitourinary Symptoms: No Symptoms Musculoskeletal: Other (right hip pain /) Skin: Other (surgical wound to right hip with wound vac placed mild surrounding erythema) Neurological: No Symptoms Psychological: No Symptoms Endocrine: No Symptoms Hematologic/Lymphatic: No Symptoms Immunological/Allergic: No Symptoms Objective Exam General Appearance: no apparent distress Neurologic Exam: alert, oriented x 3, cooperative Skin Exam: normal color, other (surgical wound to right hip with wound vac placed mild surrounding erythema) Eye Exam: PERRL Ears, Nose, Throat Exam: normal ENT inspection Neck Exam: normal inspection Respiratory Exam: normal breath sounds, lungs clear Cardiovascular Exam: regular rate/rhythm, normal heart sounds Gastrointestinal/Abdomen Exam: soft, normal bowel sounds Extremity Exam: normal inspection Back Exam: normal inspection Pelvic Exam: deferred Rectal Exam: deferred Objective Data Vital Signs: Vital Signs - 24 hr Temp Pulse Resp BP Pulse Ox 07/29/24 20:00 99.0 F 70 16 124/55 95 07/29/24 07:47 97.8 F 66 16 137/60 96 Pain Assessment - Last Documented Pain Intensity 0 Pain Scale Used 0-10 Pain Scale Intake and Output: Intake & Output 07/27/24 07/28/24 07/29/24 07/30/24 11:59 11:59 11:59 11:59 Intake Total 420 940 660 580 Output Total 200 Balance 420 740 660 580 Weight 91 kg Lab Results: Lab Results-Last 24 Hours 07/29/24 07/29/24 07/29/24 Range/Units 07:41 11:52 16:10 POC Glucometer 174 H 195 H 205 H (74 to 106) mg/dL 07/29/24 Range/Units 20:56 POC Glucometer 192 H (74 to 106) mg/dL Medications: Medications Generic Name Dose Route Start Last Admin Trade Name Freq PRN Reason Stop Dose Admin Acetaminophen 650 mg 07/23/24 16:00 07/29/24 22:12 Acetaminophen 325 Mg Tablet PO 08/17/24 14:36 650 mg Q4H PRN PRN Administration PAIN, FEVER, HEADACHE Hydrocodone Bitart/Acetaminophen 1 tab 07/25/24 22:12 07/28/24 22:46 Hydrocodone/Apap 5/325 1 Tab Tablet PO 07/30/24 22:11 1 tab Q4H PRN PRN Administration PAIN Aspirin 325 mg 07/24/24 10:00 07/29/24 08:58 Aspirin 325 Mg Tablet.Ec PO 08/21/24 09:59 325 mg QAM CAROLA Administration Benazepril HCl 20 mg 07/24/24 10:00 07/29/24 08:57 Benazepril Hcl 10 Mg Tablet PO 08/18/24 09:59 20 mg DAILY [facility]OLA Administration Cholecalciferol 1,000 unit 07/24/24 10:00 07/29/24 08:58 Cholecalciferol (Vitamin D3) 1000 Unit Tablet PO 08/18/24 09:59 1,000 unit DAILY [facility] Administration Docusate Sodium 100 mg 07/23/24 16:00 07/28/24 09:08 Docusate Sodium 100 Mg Capsule PO 08/20/24 15:34 100 mg BIDPRN PRN Administration CONSTIPATION Escitalopram Oxalate 10 mg 07/24/24 10:00 07/29/24 08:58 Escitalopram Oxalate 10 Mg Tablet PO 08/18/24 09:59 10 mg DAILY [facility] Administration Ferrous Sulfate 325 mg 07/24/24 10:00 07/29/24 08:58 Ferrous Sulfate 325 Mg Tablet PO 08/18/24 09:59 325 mg DAILY [facility] Administration Hydrochlorothiazide 25 mg 07/24/24 10:00 07/29/24 08:57 Hydrochlorothiazide 25 Mg Tablet PO 08/18/24 09:59 25 mg DAILY [facility] Administration Insulin Human Lispro 0 unit 07/23/24 16:00 07/29/24 16:18 Insulin Lispro 1 Unit SQ 08/19/24 16:53 5 unit UD PRN Administration HYPERGLYCEMIA Magnesium Oxide 200 mg 07/24/24 10:00 07/29/24 08:58 Magnesium Oxide 400 Mg Tablet PO 08/18/24 09:59 200 mg DAILY [facility] Administration Melatonin 3 mg 07/23/24 16:00 07/29/24 22:12 Melatonin 3 Mg Tablet PO 08/20/24 10:16 3 mg HS PRN PRN Administration INSOMNIA Miscellaneous Information 1 each 07/23/24 16:00 Medication Intervention 1 Each Each MC 08/17/24 15:14 .RN TO CHECK CAROL[facility] Naloxone HCl 0.4 mg 07/23/24 16:00 Naloxone Hcl 0.4 Mg/Ml Ml IV 08/22/24 08:03 PRN PRN RESPIRATORY DEPRESSION Nitroglycerin 0.4 mg 07/23/24 16:00 Nitroglycerin 0.4 Mg Tablet Bottle SL 08/17/24 14:40 Q12H PRN PRN CHEST PAIN Ondansetron HCl 4 mg 07/23/24 16:00 Ondansetron Hcl 4 Mg/2 Ml Vial IV 08/17/24 14:36 Q6H PRN PRN NAUSEA/VOMITING Pantoprazole Sodium 40 mg 07/24/24 10:00 07/29/24 08:58 Protonix (Pantoprazole) 40 Mg Tablet PO 08/18/24 09:59 40 mg DAILY [facility]OL[facility] Administration Edd Espino 1 pad 07/27/24 09:07 07/28/24 17:57 Edd Espino 1 Pad Med..Pad TP 08/26/24 09:06 1 pad DAILY PRN PRN Administration HEMORRHOIDS Discontinued Medications Generic Name Dose Route Start Last Admin Trade Name Freq PRN Reason Stop Dose Admin Hydrocodone Bitart/Acetaminophen 1 tab 07/23/24 16:00 07/24/24 22:10 Hydrocodone/Apap 5/325 1 Tab Tablet PO 07/25/24 12:00 1 tab Q4H PRN PRN Administration PAIN Hydromorphone HCl 0.5 mg 07/23/24 16:00 Hydromorphone 1 Mg/1ml Inj IV 07/25/24 12:00 Q4H PRN PRN PAIN Lactobacillus Acidophilus 1 tab 07/28/24 14:17 07/28/24 15:06 Lactobacillus Acidophilus 1 Tab Tablet PO 08/27/24 14:16 Not Given DAILY [facility] Potassium Chloride 40 meq 07/26/24 07:22 07/26/24 09:04 Potassium Chloride Tab 10 Meq Tab PO 07/26/24 07:23 40 meq STAT ONE Administration Tuberculin PPD 5 unit 07/23/24 16:00 07/23/24 18:43 Aplisol (Tuberculin,Purif.Prot.Deriv.) 5 Unit/0.1 Ml Ml ID 07/23/24 16:01 5 unit ONCE ONE Administration Assessment/Plan (1) Trochanteric fracture of femur Current Visit: No Status: Acute Qualifiers: Encounter type: subsequent encounter Fracture type: closed Laterality: right Fracture healing: with routine healing Qualified Code(s): S72.101D - Unspecified trochanteric fracture of right femur, subsequent encounter for closed fracture with routine healing Assessment & Plan: - Swing bed 07/23 - POD #10 - CBC, CMP reviewed - Ortho note reviewed and agree with plan of care - Wound vac placed 07/26/24 - to remain per ortho for 7 days - Radiology results reviewed - Narcotic pain control -continue IPPT Code(s): S72.109A - UNSP TROCHANTERIC FRACTURE OF UNSP FEMUR, INIT FOR CLOS FX (2) Pancytopenia Current Visit: No Status: Acute Assessment & Plan: -Occult stool + - will need OP f/u for colonoscopy -CBC reviewed - plts, WBC, And RBC have improved and remain stable plts 100- WBC WNL, RBC WNL Code(s): D61.818 - OTHER PANCYTOPENIA (3) Vitamin D deficiency Current Visit: No Status: Acute Assessment & Plan: -Vitamin D level reviewed at 25- will start supplementation at 1000 units daily- will need rechecked in 12 weeks for treatment response -Encouraged intake of vitamin D -rich food and safe sun exposure Code(s): E55.9 - VITAMIN D DEFICIENCY, UNSPECIFIED (4) Depression Current Visit: No Status: Chronic Assessment & Plan: -Resume Lexapro Code(s): F32.A - DEPRESSION, UNSPECIFIED (5) Essential (primary) hypertension Current Visit: No Status: Chronic Assessment & Plan: -Continue home med benazepril/hctz - BP controlled Code(s): I10 - ESSENTIAL (PRIMARY) HYPERTENSION (6) HLD (hyperlipidemia) Current Visit: No Status: Chronic Assessment & Plan: - Advised ADA diet and exercise control Code(s): E78.5 - HYPERLIPIDEMIA, UNSPECIFIED (7) Obesity (BMI 30-39.9) Current Visit: No Status: Chronic Assessment & Plan: - Advised ADA diet and exercise control Code(s): E66.9 - OBESITY, UNSPECIFIED (8) Type 2 diabetes mellitus without complications Current Visit: No Status: Chronic Qualifiers: Diabetes mellitus chcf insulin use: without chcf use Qualified Code(s): E11.9 - Type 2 diabetes mellitus without complications Assessment & Plan: -ADA diet -SSI -A1c 7.36- controlled Code(s): E11.9 - TYPE 2 DIABETES MELLITUS WITHOUT COMPLICATIONS (9) Anemia Current Visit: Yes Status: Acute Assessment & Plan: -Received a total of 4 units - 2 units pre-op; 2 units post op - Hgb stable at 10.2 -Occult stools positive - will need GI workup as OP -Ferrous sulfate started -Will need hematology OP VTE: ASA 325mg per ortho Dispo: ?2-3 days Code status: Full Code(s): D64.9 - ANEMIA, UNSPECIFIED
[2024-07-30 05:07] LABS: ALBUMIN 3.5 g/dL (3.5-5.0); ANION GAP 12.3 MEQ/L (5-15); Calcium 9.1 mg/dL (8.4-10.2); Creatinine 1 0.57 mg/dL (0.52-1.04); EST GLOMERULAR FILTRATION RATE 95.9 ML/MIN; Potassium 3.6 mmol/L (3.5-5.1); Total Protein 5.8 g/dL (6.3-8.2)
--- NOTE | 2024-07-30 11:17 | PCM.NOTE ---
Date and Time: 07/30/24 1112 Subjective Assessment: Ms. Miller reports mild right hip pain. No other problems are reported. Objective Exam Comments: Afebrile; VSS General-NAD, patient ambulating in the hallway RLE-Prevena wound VAC in place; N/V stable Objective Data Vital Signs: Vital Signs - 24 hr Temp Pulse Resp BP Pulse Ox 07/30/24 08:00 99.4 F 64 16 138/63 95 07/29/24 20:00 99.0 F 70 16 124/55 95 Pain Assessment - Last Documented Pain Intensity 0 Pain Scale Used 0-10 Pain Scale Intake and Output: Intake & Output 07/28/24 07/29/24 07/30/24 07/31/24 06:59 06:59 06:59 06:59 Intake Total 480 940 760 Output Total 200 Balance 280 940 760 Lab Results: Lab Results-Last 24 Hours 07/29/24 07/29/24 07/29/24 Range/Units 11:52 16:10 20:56 WBC (3.98-10.04) x10^3/uL RBC (3.93-5.22) x10^6/uL Hgb (11.2-15.7) g/dL Hct (34.1-44.9) % MCV (79.4-94.8) fL MCH (25.6-32.2) pg MCHC (32.2-35.5) g/dL RDW (11.7-14.4) % Plt Count (182-369) x10^3/uL MPV (9.4-12.3) fL Sodium (135-145) mmol/L Potassium (3.5-5.1) mmol/L Chloride (98-107) mmol/L Carbon Dioxide (22-30) mmol/L Anion Gap (5-15) MEQ/L BUN (7-17) mg/dL Creatinine (0.52-1.04) mg/dL Estimated GFR ML/MIN Glucose (74-106) mg/dL POC Glucometer 195 H 205 H 192 H (74 to 106) mg/dL Calcium (8.4-10.2) mg/dL Total Bilirubin (0.2-1.3) mg/dL AST (14-36) U/L ALT (0-35) U/L Alkaline Phosphatase (38-126) U/L Serum Total Protein (6.3-8.2) g/dL Albumin (3.5-5.0) g/dL 07/30/24 07/30/24 07/30/24 Range/Units 04:09 04:09 07:31 WBC 4.6 (3.98-10.04) x10^3/uL RBC 4.05 (3.93-5.22) x10^6/uL Hgb 10.2 L (11.2-15.7) g/dL Hct 32.5 L (34.1-44.9) % MCV 80.2 (79.4-94.8) fL MCH 25.2 L (25.6-32.2) pg MCHC 31.4 L (32.2-35.5) g/dL RDW 21.6 H (11.7-14.4) % Plt Count 100 L (182-369) x10^3/uL MPV 12.0 (9.4-12.3) fL Sodium 137 (135-145) mmol/L Potassium 3.6 (3.5-5.1) mmol/L Chloride 102 (98-107) mmol/L Carbon Dioxide 27 (22-30) mmol/L Anion Gap 12.3 (5-15) MEQ/L BUN 12 (7-17) mg/dL Creatinine 0.57 (0.52-1.04) mg/dL Estimated GFR 95.9 ML/MIN Glucose 157 H (74-106) mg/dL POC Glucometer 176 H (74 to 106) mg/dL Calcium 9.1 (8.4-10.2) mg/dL Total Bilirubin 1.00 (0.2-1.3) mg/dL AST 37 H (14-36) U/L ALT 45 H (0-35) U/L Alkaline Phosphatase 161 H (38-126) U/L Serum Total Protein 5.8 L (6.3-8.2) g/dL Albumin 3.5 (3.5-5.0) g/dL Medications: Medications Generic Name Dose Route Start Last Admin Trade Name Freq PRN Reason Stop Dose Admin Acetaminophen 650 mg 07/23/24 16:00 07/29/24 22:12 Acetaminophen 325 Mg Tablet PO 08/17/24 14:36 650 mg Q4H PRN PRN Administration PAIN, FEVER, HEADACHE Hydrocodone Bitart/Acetaminophen 1 tab 07/25/24 22:12 07/28/24 22:46 Hydrocodone/Apap 5/325 1 Tab Tablet PO 07/30/24 22:11 1 tab Q4H PRN PRN Administration PAIN Aspirin 325 mg 07/24/24 10:00 07/30/24 09:11 Aspirin 325 Mg Tablet.Ec PO 08/21/24 09:59 325 mg QAM CAROLA Administration Benazepril HCl 20 mg 07/24/24 10:00 07/30/24 09:12 Benazepril Hcl 10 Mg Tablet PO 08/18/24 09:59 20 mg DAILY CAROLA Administration Cholecalciferol 1,000 unit 07/24/24 10:00 07/30/24 09:11 Cholecalciferol (Vitamin D3) 1000 Unit Tablet PO 08/18/24 09:59 1,000 unit DAILY CAROLA Administration Docusate Sodium 100 mg 07/23/24 16:00 07/28/24 09:08 Docusate Sodium 100 Mg Capsule PO 08/20/24 15:34 100 mg BIDPRN PRN Administration CONSTIPATION Escitalopram Oxalate 10 mg 07/24/24 10:00 07/30/24 09:11 Escitalopram Oxalate 10 Mg Tablet PO 08/18/24 09:59 10 mg DAILY CAROLA Administration Ferrous Sulfate 325 mg 07/24/24 10:00 07/30/24 09:11 Ferrous Sulfate 325 Mg Tablet PO 08/18/24 09:59 325 mg DAILY CAROLA Administration Hydrochlorothiazide 25 mg 07/24/24 10:00 07/30/24 09:12 Hydrochlorothiazide 25 Mg Tablet PO 08/18/24 09:59 25 mg DAILY CAROLA Administration Insulin Human Lispro 0 unit 07/23/24 16:00 07/30/24 08:04 Insulin Lispro 1 Unit SQ 08/19/24 16:53 3 unit UD PRN Administration HYPERGLYCEMIA Magnesium Oxide 200 mg 07/24/24 10:00 07/30/24 09:11 Magnesium Oxide 400 Mg Tablet PO 08/18/24 09:59 200 mg DAILY CAROLA Administration Melatonin 3 mg 07/23/24 16:00 07/29/24 22:12 Melatonin 3 Mg Tablet PO 08/20/24 10:16 3 mg HS PRN PRN Administration INSOMNIA Miscellaneous Information 1 each 07/23/24 16:00 Medication Intervention 1 Each Each 08/17/24 15:14 .RN TO CHECK CAROLA Naloxone HCl 0.4 mg 07/23/24 16:00 Naloxone Hcl 0.4 Mg/Ml Ml IV 08/22/24 08:03 PRN PRN RESPIRATORY DEPRESSION Nitroglycerin 0.4 mg 07/23/24 16:00 Nitroglycerin 0.4 Mg Tablet Bottle SL 08/17/24 14:40 Q12H PRN PRN CHEST PAIN Ondansetron HCl 4 mg 07/23/24 16:00 Ondansetron Hcl 4 Mg/2 Ml Vial IV 08/17/24 14:36 Q6H PRN PRN NAUSEA/VOMITING Pantoprazole Sodium 40 mg 07/24/24 10:00 07/30/24 09:12 Protonix (Pantoprazole) 40 Mg Tablet PO 08/18/24 09:59 40 mg DAILY CAROLA Administration Edd sEpino 1 pad 07/27/24 09:07 07/28/24 17:57 Edd Espino 1 Pad Med..Pad TP 08/26/24 09:06 1 pad DAILY PRN PRN Administration HEMORRHOIDS Discontinued Medications Generic Name Dose Route Start Last Admin Trade Name Freq PRN Reason Stop Dose Admin Hydrocodone Bitart/Acetaminophen 1 tab 07/23/24 16:00 07/24/24 22:10 Hydrocodone/Apap 5/325 1 Tab Tablet PO 07/25/24 12:00 1 tab Q4H PRN PRN Administration PAIN Hydromorphone HCl 0.5 mg 07/23/24 16:00 Hydromorphone 1 Mg/1ml Inj IV 07/25/24 12:00 Q4H PRN PRN PAIN Lactobacillus Acidophilus 1 tab 07/28/24 14:17 07/28/24 15:06 Lactobacillus Acidophilus 1 Tab Tablet PO 08/27/24 14:16 Not Given DAILY CAROLA Potassium Chloride 40 meq 07/26/24 07:22 07/26/24 09:04 Potassium Chloride Tab 10 Meq Tab PO 07/26/24 07:23 40 meq STAT ONE Administration Tuberculin PPD 5 unit 07/23/24 16:00 07/23/24 18:43 Aplisol (Tuberculin,Purif.Prot.Deriv.) 5 Unit/0.1 Ml Ml ID 07/23/24 16:01 5 unit ONCE ONE Administration Multi-Disciplinary Progress Notes: Multi-Disciplinary Progress Notes 07/30/24 10:56 Case Management Note by Ledy San S/W PATIENT- SHE CONTINUES TO PLAN TO DC HOME LATER THIS WEEK. SHE REPORTS HER SISTER IS PLANNING TO STAY WITH HER FOR A COUPLE OF DAYS AT DC TO BE SURE SHE DOES OKAY. SHE IS GOING TO WITH OT TO GET EQUIPMENT NEEDED. PATIENT ALREADY HAS WALKER AT HOME. DISCUSSED [facility]- THIS WAS SET UP AND WILL BE READY FOR PATIENT AT [place]. PER HERI NOBLE PLANS TO REMOVE VAC PRIOR TO DC AND WILL GIVE CARE INCISION CARE INSTRUCTIONS AT THAT TIME Initialized on 07/30/24 10:56 - END OF NOTE 07/30/24 10:51 Case Management Note by Ledy San REFERRAL FAXED TO [facility]. THEY WILL NEED NOTIFIED AT TIME OF DC AT [phone]. THEY WILL NEED FAXED THE DC INSTRUCTIONS, DC MED LIST AND DC SUMMARY TO [phone] Initialized on 07/30/24 10:51 - END OF NOTE Assessment/Plan (1) Hip fracture, right Assessment & Plan: Ms. Miller is status-post open reduction internal fixation of a right intertrochanteric hip fracture. The patient is stable. The Prevena wound VAC is still in place and assisting with wound healing. The patient's hemoglobin is improving. The patient is scheduled for discharge to home later this week. The Prevena wound VAC will be removed prior to the patient's discharge to home. The patient will continue to be monitored.
[2024-07-30] MEDS: HUMALOG SQ PRN (17:13)
[2024-07-30] MEDS: NORCO 5/325 MG PO ONE (22:27)
[2024-07-31 07:10] VITALS: RESP 16
[2024-07-31 20:21] VITALS: O2SAT 93
[2024-07-31] MEDS: NORCO 5/325 MG PO PRN (21:48)
[2024-08-01 05:03] LABS: Absolute Neutrophil Ct (ANC) 2.93 x10^3/uL (1.56-6.13); BASOPHIL % 0.9 % (0.1-1.2); Basophil (Absolute #) 0.04 x10^3/uL (0.01-0.08); Eosinophil % 1.6 % (0.7-5.8); Eosinophil (Absolute #) 0.07 x10^3/uL (0.04-0.36); Hematocrit 32.6 % (34.1-44.9); Hemoglobin 9.9 g/dL (11.2-15.7); IMMATURE GRAN # 0.02 x10^3u/L (0.001-0.031); IMMATURE GRAN % 0.5 % (0.001-0.429); Lymphocyte (Absolute #) 0.95 x10^3/uL (1.18-3.74); Lymphocytes % 21.6 % (19.3-51.7); Mean Cell Volume 82.1 fL (79.4-94.8); Mean Corpuscular Hemoglobin 24.9 pg (25.6-32.2); Mean Corpuscular Hgb Concent. 30.4 g/dL (32.2-35.5); Mean Platelet Volume 11.3 fL (9.4-12.3); Monocyte (Absolute #) 0.38 x10^3/uL (0.24-0.86); Monocytes % 8.7 % (4.7-12.5); Neutrophil % 66.7 % (34.0-71.1); Platelet Count 100 x10^3/uL (182-369); Red Blood Count 3.97 x10^6/uL (3.93-5.22); White Blood Count 4.4 x10^3/uL (3.98-10.04)
[2024-08-01 05:30] LABS: ALBUMIN 3.4 g/dL (3.5-5.0); ANION GAP 12.5 MEQ/L (5-15); BILIRUBIN,TOTAL 0.9 mg/dL (0.2-1.3); Calcium 9.1 mg/dL (8.4-10.2); Creatinine 1 0.52 mg/dL (0.52-1.04); Potassium 3.5 mmol/L (3.5-5.1); Total Protein 5.7 g/dL (6.3-8.2)
--- NOTE | 2024-08-01 06:00 | PCM.DS ---
Discharge Summary Date of Admission: 07/23/24 15:50 Date of Discharge: 08/01/24 Admitting Physician: MARTHA CHILD MD Primary Care Provider: NUBIA QUINONEZ Allergies Allergies Penicillins Allergy (Verified 07/18/24 10:16) Sulfa (Sulfonamide Antibiotics) Allergy (Verified 07/18/24 10:16) Hospital Summary - Hospital Course Hospital Course: Ms. Miller is a 74-year-old female with a past medical history of type 2 diabetes mellitus, hypertension, hyperlipidemia, obesity, vitamin D deficiency, and depression who presented on 07/18/24 with worsening right hip pain. One week prior, she sustained a ground-level fall resulting in a mildly displaced, comminuted but overall nondisplaced fracture of the right greater trochanter, initially managed nonoperatively. She experienced acute exacerbation of pain while seated, without new trauma. CT imaging demonstrated intratrochanteric extension of the fracture with no radiographic evidence of healing. Orthopedic consultation was reinitiated, and she underwent surgical repair on 07/20/24. Preoperative labs revealed pancytopenia with a hemoglobin of 6.7 g/dL. She received two units of PRBCs preoperatively and two additional units postoperatively. Her postoperative course was complicated by persistent anemia with positive stool guaiac testing. She was started on ferrous sulfate, and outpatient hematology and GI evaluation, including colonoscopy, were recommended. Pancytopenia has since improved with WBC, RBC, and platelet count stabilizing. Additionally, her vitamin D level was low at 25; she was started on 1000 units of daily supplementation with recheck planned in 12 weeks. By post-op day 4, she endorsed improved mobility but was noted to have significant serous drainage from her wound without signs of infection. A Prevena wound VAC was placed on 07/26/24 and is to remain for 7 days per orthopedics to support wound healing. By post-op day 10 (07/30/24), her hemoglobin remained stable at 10.2, she reported improved pain control, and continued to engage with inpatient physical therapy. Pain was managed with narcotics as needed. She remains on aspirin 325 mg daily for DVT prophylaxis. Outpatient follow-up with her primary care physician for anemia and wound care, hematology for persistent anemia, and GI for colonoscopy is advised. Chronic medications including Lexapro and antihypertensives were resumed, and diabetes remained diet-controlled with stable glycemic parameters (A1c 7.36). Wound vac has been removed with wound care instructions and WB status provided by Orthopedics. Discharge Note New Diagnosis: Trochanteric fracture New Medications: Vitamin D, ASA, [place] Follow Up: Ortho/pcp I spent 35 minutes [id number] with the patient on the day of discharge performing discharge exam, discussing hospital stay and discharge instructions with patient and caregivers, preparation of discharge records, prescriptions & referral forms and addressing any questions/concerns the patient had as documented above. - Vitals & Intake/Output Vital Signs: Vital Signs Temperature 97.3 F 07/31/24 20:00 Pulse Rate 76 07/31/24 20:00 Respiratory Rate 16 07/31/24 20:00 Blood Pressure 115/56 07/31/24 20:00 O2 Sat by Pulse Oximetry 93 L 07/31/24 20:00 Intake & Output: Intake & Output 07/29/24 07/30/24 07/31/24 08/01/24 11:59 11:59 11:59 11:59 Intake Total 660 580 220 100 Balance 660 580 220 100 - Lab Result Diagrams: 08/01/24 04:55 08/01/24 04:55 Lab Results-Last 24 Hrs: Lab Results-Last 24 Hours 07/31/24 07/31/24 07/31/24 Range/Units 07:38 11:22 16:50 WBC (3.98-10.04) x10^3/uL RBC (3.93-5.22) x10^6/uL Hgb (11.2-15.7) g/dL Hct (34.1-44.9) % MCV (79.4-94.8) fL MCH (25.6-32.2) pg MCHC (32.2-35.5) g/dL RDW (11.7-14.4) % Plt Count (182-369) x10^3/uL MPV (9.4-12.3) fL Gran % (34.0-71.1) % Immature Gran % (Auto) (0.001-0.429) % Nucleat RBC Rel Count (0.00-0.2) % Eos # (Auto) (0.04-0.36) x10^3/uL Immature Gran # (Auto) (0.001-0.031) x10^3u/L Absolute Lymphs (auto) (1.18-3.74) x10^3/uL Absolute Monos (auto) (0.24-0.86) x10^3/uL Absolute Nucleated RBC (0.00-0.012) x10^3u/L Lymphocytes % (19.3-51.7) % Monocytes % (4.7-12.5) % Eosinophils % (0.7-5.8) % Basophils % (0.1-1.2) % Absolute Granulocytes (1.56-6.13) x10^3/uL Basophils # (0.01-0.08) x10^3/uL Sodium (135-145) mmol/L Potassium (3.5-5.1) mmol/L Chloride (98-107) mmol/L Carbon Dioxide (22-30) mmol/L Anion Gap (5-15) MEQ/L BUN (7-17) mg/dL Creatinine (0.52-1.04) mg/dL Estimated GFR ML/MIN Glucose (74-106) mg/dL POC Glucometer 149 H 195 H 141 H (74 to 106) mg/dL Calcium (8.4-10.2) mg/dL Total Bilirubin (0.2-1.3) mg/dL AST (14-36) U/L ALT (0-35) U/L Alkaline Phosphatase (38-126) U/L Serum Total Protein (6.3-8.2) g/dL Albumin (3.5-5.0) g/dL 07/31/24 08/01/24 08/01/24 Range/Units 21:00 04:55 04:55 WBC 4.4 (3.98-10.04) x10^3/uL RBC 3.97 (3.93-5.22) x10^6/uL Hgb 9.9 L (11.2-15.7) g/dL Hct 32.6 L (34.1-44.9) % MCV 82.1 (79.4-94.8) fL MCH 24.9 L (25.6-32.2) pg MCHC 30.4 L (32.2-35.5) g/dL RDW 22.0 H (11.7-14.4) % Plt Count 100 L (182-369) x10^3/uL MPV 11.3 (9.4-12.3) fL Gran % 66.7 (34.0-71.1) % Immature Gran % (Auto) 0.5 H (0.001-0.429) % Nucleat RBC Rel Count 0.0 (0.00-0.2) % Eos # (Auto) 0.07 (0.04-0.36) x10^3/uL Immature Gran # (Auto) 0.02 (0.001-0.031) x10^3u/L Absolute Lymphs (auto) 0.95 L (1.18-3.74) x10^3/uL Absolute Monos (auto) 0.38 (0.24-0.86) x10^3/uL Absolute Nucleated RBC 0.00 (0.00-0.012) x10^3u/L Lymphocytes % 21.6 (19.3-51.7) % Monocytes % 8.7 (4.7-12.5) % Eosinophils % 1.6 (0.7-5.8) % Basophils % 0.9 (0.1-1.2) % Absolute Granulocytes 2.93 (1.56-6.13) x10^3/uL Basophils # 0.04 (0.01-0.08) x10^3/uL Sodium 139 (135-145) mmol/L Potassium 3.5 (3.5-5.1) mmol/L Chloride 102 (98-107) mmol/L Carbon Dioxide 27 (22-30) mmol/L Anion Gap 12.5 (5-15) MEQ/L BUN 14 (7-17) mg/dL Creatinine 0.52 (0.52-1.04) mg/dL Estimated GFR 98.0 ML/MIN Glucose 132 H (74-106) mg/dL POC Glucometer 213 H (74 to 106) mg/dL Calcium 9.1 (8.4-10.2) mg/dL Total Bilirubin 0.90 (0.2-1.3) mg/dL AST 35 (14-36) U/L ALT 40 H (0-35) U/L Alkaline Phosphatase 147 H (38-126) U/L Serum Total Protein 5.7 L (6.3-8.2) g/dL Albumin 3.4 L (3.5-5.0) g/dL Micro Results-Entire Visit: Accuchecks Date 07/31/24 Date 07/31/24 Date 07/31/24 Date 07/31/24 Time 21:00 Time 16:52 Time 11:31 Time 07:46 - Procedures and Test Procedures and Tests throughout Hospitalization: Therapy Orders & Screens 07/23/24 16:00 PT Eval & Treat (MD Order) ONCE Reason for Eval:: POST OP ORIF Diagnosis: TROCHANTERIC FX, ANEMIA, UNCONTROLED PAIN OT Eval and Treat (MD Order) ONCE Comment: Physician Instructions: Reason For Exam: Diagnosis: TROCHANTERIC FX, ANEMIA, UNCONTROLED PAIN OT Eval and Treat (MD Order) ONCE Comment: Physician Instructions: Reason For Exam: Evaluate: Yes Treat: Yes Reason for Evaluation: SWING BED Diagnosis: TROCHANTERIC FX, ANEMIA, UNCONTROLED PAIN 07/23/24 16:39 OT Clarification Order ROUTINE Comment: Physician Instructions: Reason For Exam: OT Clarification: OT 5X/WEEK TO ADDRESS DME, A/E TRAINING, COMPENSATORY STRATEGIES, SAFETY INSIGHT, AND FACILITATE INDEPENDENCE WITH ADLS 07/24/24 05:36 PT Clarification Order ROUTINE Comment: Physician Instructions: Reason For Exam: PT Clarification: P.T. TO TX 5X/WK TO ADDRESS FUNCTIONAL MOBILITY AND GAIT TRAINING, THER EX, BALANCE AND ENDURANCE ACTIVITIES TO MAXIMIZE FUNCTIONAL INDEPENDENCE FOR SAFE RETURN HOME. 07/26/24 11:09 PT Eval & Treat (MD Order) ONCE Reason for Eval:: PLACE WOUND VAC (PREVINA, 7 DAY WOUND VAC) Diagnosis: TROCHANTERIC FX, ANEMIA, UNCONTROLED PAIN Discharge Exam General Appearance: no apparent distress Neurologic Exam: alert, oriented x 3, cooperative Eye Exam: PERRL Ears, Nose, Throat Exam: normal ENT inspection Neck Exam: normal inspection Respiratory Exam: normal breath sounds, lungs clear Cardiovascular Exam: regular rate/rhythm, normal heart sounds Gastrointestinal/Abdomen Exam: soft, normal bowel sounds Pelvic Exam: deferred Rectal Exam: deferred Back Exam: normal inspection Extremity Exam: normal inspection Skin Exam: other (surgical wound to right hip with wound vac placed) Final Diagnosis/Problem List - Final Discharge Diagnosis/Problem (1) Trochanteric fracture of femur Current Visit: No Status: Resolved Code(s): S72.109A - UNSP TROCHANTERIC FRACTURE OF UNSP FEMUR, INIT FOR CLOS FX (2) Pancytopenia Current Visit: No Status: Acute Code(s): D61.818 - OTHER PANCYTOPENIA (3) Vitamin D deficiency Current Visit: No Status: Chronic Code(s): E55.9 - VITAMIN D DEFICIENCY, UNSPECIFIED (4) Depression Current Visit: No Status: Chronic Code(s): F32.A - DEPRESSION, UNSPECIFIED (5) Essential (primary) hypertension Current Visit: No Status: Chronic Code(s): I10 - ESSENTIAL (PRIMARY) HYPERTENSION (6) HLD (hyperlipidemia) Current Visit: No Status: Chronic Code(s): E78.5 - HYPERLIPIDEMIA, UNSPECIFIED (7) Obesity (BMI 30-39.9) Current Visit: No Status: Chronic Code(s): E66.9 - OBESITY, UNSPECIFIED (8) Type 2 diabetes mellitus without complications Current Visit: No Status: Chronic Code(s): E11.9 - TYPE 2 DIABETES MELLITUS WITHOUT COMPLICATIONS (9) Anemia Current Visit: Yes Status: Chronic Code(s): D64.9 - ANEMIA, UNSPECIFIED - Discharge Discharge Date: 08/01/24 Disposition: Home, Self-Care Condition: Stable Prescriptions: New Aspirin EC 325 mg [Ecotrin 325 MG] 325 mg PO QAM 30 Days #30 tablet Ferrous Sulfate 325 mg [Feosol 325 mg] 325 mg PO DAILY 30 Days #30 tablet Hydrocodone/Acetaminophen [Hydrocodone-Acetamin 5-325 mg] 1 tab PO Q6HPRN PRN 3 Days #12 tablet MDD 4 PRN Reason: Pain Cholecalciferol (Vitamin D3) [Vitamin D] 1,000 unit PO DAILY 30 Days #30 tablet Continue Metformin HCl 500 mg PO BID Benazepril/Hydrochlorothiazide [Lotensin Hct 20-25 mg Tablet] 1 tab PO DAILY Magnesium Oxide [Mag-Oxide Magnesium] 250 mg PO DAILY Escitalopram Oxalate [Lexapro] 10 mg PO DAILY Potassium Gluconate 500 mg PO DAILY Nitroglycerin 0.4 mg Tablet [Nitrostat 0.4 MG Tablet] 0.4 mg SL Q12H PRN PRN PRN Reason: Chest Pain Semaglutide [Ozempic] 0.25 mg SQ WEEKLY Discontinued Acetaminophen 325 mg [Tylenol 325 mg] 500 mg PO Q6HPRN PRN PRN Reason: Mild To Moderate Pain Hydrocodone/Acetaminophen [Hydrocodone-Acetamin 5-325 mg] 1 tab PO Q6HPRN PRN 3 Days #12 tablet MDD 4 PRN Reason: Pain Ferrous Sulfate 325 mg [Feosol 325 mg] 325 mg PO DAILY #0 tablet Cholecalciferol (Vitamin D3) [Vitamin D] 1,000 unit PO DAILY tablet Instructions: Hip fracture Additional Instructions: DRESSING CHANGES TO HIP NEEDED-CLEAN INCISION WITH BETADINE AND COVER WITH BOARDERED GAUZE DRESSING CONTINUE TOE TOUCH WEIGHT BEARING ONLY INSTRUCTED, USE WALKER CONTINUE ASPIRIN FOR 4 WEEKS FROM 07/20/24 [facility] BEEN SET UP FOR YOU. THEY WILL CALL YOU TO ARRANGE A TIME TO COME SEE YOU. THEIR PHONE NUMBER IS [phone] IF YOU NEED ANYTHING PRIOR TO THEIR VISIT Follow up with: NUBIA QUINONEZ NP [Primary Care Provider, [facility]ILY [facility]ACTICE] - 08/08/24 10:30 am OMID MARTIN NP [NON-STAFF PHY W/O PRIVILEGES, UNKNOWN] - 08/07/24 9:30 am
[2024-08-01 08:24] VITALS: BP 134/71; PULSE 73; TEMP 97.9
--- NOTE | 2024-08-01 13:07 | PCM.NOTE ---
ORTHO Narrative Note ORTHO Narrative Note: ORTHOPAEDIC SURGERY INPATIENT PROGRESS NOTE Ms. Miller reports minimal right hip pain. No other problems are reported. OBJECTIVE: Afebrile; VSS General - NAD; patient sitting up in the chair RLE - Prevena wound VAC removed; incision intact with sutures in place; no erythema; minimal bruising throughout thigh; N/V stable LABS: Hgb - 9.9 WBC - 4.4 ASSESSMENT: Right intertrochanteric hip fracture, status-post open reduction internal fixation PLAN: Ms. Miller is stable. The patient's Prevena wound VAC will be discontinued at this time. Her surgical incision was cleaned with Betadine, and a new dressing was applied. The patient is being discharged to home today. The patient is to continue toe-touch weightbearing on the right lower extremity; the patient is to ambulate with use of an assistive device. The patient is continue aspirin p.o. daily for DVT prophylaxis. The patient will change the right hip dressing as needed. The patient is to follow-up in the [facility] on 08/07/2024. The patient has been instructed to call if there are any problems, questions, or concerns.
== END 2024-08-01 15:15 | disposition home or self-care (01) | DRG 536 ==
LOC: MED SURG 15:50
PROVIDERS: ADMIT Internal Medicine; ATTEND Internal Medicine
DX: S72.101A Unspecified trochanteric fracture of right femur, initial encounter for closed fracture (principal); D61.818 Other pancytopenia; E55.9 Vitamin D deficiency, unspecified; F32.A Depression, unspecified; I10 Essential (primary) hypertension; E78.5 Hyperlipidemia, unspecified; E66.9 Obesity, unspecified; E11.9 Type 2 diabetes mellitus without complications; D64.9 Anemia, unspecified; E87.6 Hypokalemia; Z79.899 Other long term (current) drug therapy
CPT/HCPCS: 36415; 80053; 82947; 83735; 84132; 85025; 85027; 99024; J1817; Q3014; 97110-GP; A9270-GY